=== PATIENT | female | born 1995 | race Caucasian/White ===

== ENCOUNTER 2016-03-12 10:05 | Emergency (ER) | payer MEDICAID ==
[~2016-03-12 10:05] MED LIST: ALBU17AE23 IH; AMOX500T2 PO; BIRTH CONTROL; CEFP250T2 PO; CEPH-38 PO; CLIN300C3 PO; CPR500T PO; DICY20TA57 PO; DOCO200C4 PO; FLUC200T45 PO; HYDR-2856 PO; Ibuprofen PO; LRT10T PO; METR500T PO; MNTL10T PO; NA P133E35 PR; NAPR250T34 PO; NFPRILOC40 PO; NITR-65 PO; NITR100C PO; OMEP-10 PO; OMEP40CA36 PO; ONDAN4ODT PO; PNT40TEC PO; PNV1TABL56 PO; POLY17PO23 PO; PRD20T PO; PREN-102 PO; RANI25TA PO; RNT150T PO; SCR1T1 PO; SERT50TA2 PO; SPRINTEC PO; SULF1TAB38 PO; TRM50T PO
--- OUTSIDE RECORDS SUMMARY | 2016-03-12 10:10 | XMS REPORT | Continuity of Care Document ---
Author Author [facility] Organization [facility] Address Unknown Phone Unavailable Care Team Providers Care Journeyman Carpenter Name Role Phone PhilMarta Fowler PCP [phone] Source Comments Some departments are not documenting in the electronic medical record. If you do not see the information that you expected, contact Release of Information in the Health Information Management department at [phone] for further assistance in locating additional records.[facility] Active Allergies and Adverse Reactions Allergen Noted Date Severity Reactions Comments Erythromycin 09/17/2012 SHORTNESS OF BREATH Iv Contrast Dye, Iodine 09/17/2012 HIVES Containing Morphine 09/17/2012 HIVES Current Medications Prescription Sig. Disp. Refills Start End Date Status Date ETONOGESTREL/ETHINYL Insert or Apply to Active ESTRADIOL (NUVARING VA) vaginal area. loratadine (CLARITIN) 10 Take 10 mg by mouth Active mg tablet daily. other medication Budesonide, oral viscous 60 mL 6 11/30/19 Active 1 mg/1 mL: Take 1 mL by 13 mouth twice daily. polyethylene glycol 3350 Take 17 g by mouth daily. 3 Bottle 12 Active (GLYCOLAX; MIRALAX) 17 13 gram/dose powder bisacodyl (DULCOLAX) 5 mg Take 2 Tabs by mouth 30 Tab 12 01/07/20 Active tablet every other day as needed [address](+) Take 1 Cap by mouth twice 60 Cap 12 01/07/20 Active (PRILOSEC) 20 mg capsule daily. 13 lubiprostone (AMITIZA) 24 Take 1 Cap by mouth twice 60 Cap 3 01/07/20 Active mcg cap daily with meals. 13 Active Problems Problem Noted Date Eosinophilic esophagitis 01/22/2013 Overview: Pathology here did not quantify the number of eosinophils/hpf, but did state EoE. It would be beneficial to have the number of eosinophils to see how much of a response was made with the viscous budesonide. Allergy skin testing could not be done today due to use of Claritin. - Plan for allergy skin testing to foods in 3 weeks. - Plan for food elimination depending on recent biopsy from EGD and skin testing. - We will wait for the biopsy results before making further decisions. - Continue budesonide per GI recommendations. Allergic rhinitis 01/22/2013 Overview: Based on history only, with the report of previous positive skin testing. - Hold Claritin 7 days prior to the next appointment. - If the patient wishes, we could perform aeroallergen skin testing at next visit. Asthma 01/22/2013 Overview: Based on history, last use of albuterol was 2 years ago. Mother suggests that it is exercise induced. - Continue to monitor symptoms with primary care. Abdominal pain 09/20/2012 Constipation 09/20/2012 Social History Tobacco Use Types Packs/Day Years Used Date Never Smoker Comments: 11.4.13 Alcohol Use Drinks/Week oz/Week Comments No Last Filed Vital Signs Vital Sign Reading Time Taken Blood Pressure 108/71 01/22/2013 12:34 PM SPLITTING MACHINE OPERATOR HELPER Pulse 89 01/22/2013 12:34 PM SPLITTING MACHINE OPERATOR HELPER Temperature 36.5 C (97.7 F) 01/22/2013 12:34 PM SPLITTING MACHINE OPERATOR HELPER Respiratory Rate 16 01/22/2013 12:34 PM SPLITTING MACHINE OPERATOR HELPER Height 1.487 m (4' 10.54") 01/22/2013 12:34 PM SPLITTING MACHINE OPERATOR HELPER Weight 54.613 kg (120 lb 6.4 oz) 01/22/2013 12:34 PM SPLITTING MACHINE OPERATOR HELPER Body Mass Index 24.7 01/22/2013 12:34 PM SPLITTING MACHINE OPERATOR HELPER Oxygen Saturation 98% 01/22/2013 12:34 PM SPLITTING MACHINE OPERATOR HELPER Plan of Care Health Maintenance Due Date Last Done Comments Physical (Comprehensive) 11/03/2002 Exam Hpv Vaccines (#1) 11/03/2006 Pertussis Vaccine 11/03/2006 Tetanus Vaccine 11/03/2012 Influenza Vaccine 2015 Results from Last 3 Months Not on file
== END 2016-03-12 10:36 | disposition left against medical advice (07) ==
LOC: EDUNIT# 10:05 → ER 10:07
DX: R30.0 Dysuria (principal); Z53.21 Procedure and treatment not carried out due to patient leaving prior to being seen by health care provider

== ENCOUNTER 2016-03-29 07:36 | Emergency (ER) | payer MEDICAID ==
[~2016-03-29] VITALS: Ht 152.4 cm; Wt 59.0 kg
--- OUTSIDE RECORDS SUMMARY | 2016-03-29 07:42 | XMS REPORT | Continuity of Care Document ---
Author Author [facility] Organization [facility] Address Unknown Phone Unavailable Care Team Providers Care Senior Climate Advisor Name Role Phone PhilMarta Fowler PCP [phone] Source Comments Some departments are not documenting in the electronic medical record. If you do not see the information that you expected, contact Release of Information in the Health Information Management department at [phone] for further assistance in locating additional records.[facility] Active Allergies and Adverse Reactions Allergen [...] Taken Blood Pressure 108/71 01/22/2013 12:34 PM EIGHT SECTION BLOWER Pulse 89 01/22/2013 12:34 PM EIGHT SECTION BLOWER Temperature 36.5 C (97.7 F) 01/22/2013 12:34 PM EIGHT SECTION BLOWER Respiratory Rate 16 01/22/2013 12:34 PM EIGHT SECTION BLOWER Height 1.487 m (4' 10.54") 01/22/2013 12:34 PM EIGHT SECTION BLOWER Weight 54.613 kg (120 lb 6.4 oz) 01/22/2013 12:34 PM EIGHT SECTION BLOWER Body Mass Index 24.7 01/22/2013 12:34 PM EIGHT SECTION BLOWER Oxygen Saturation 98% 01/22/2013 12:34 PM EIGHT SECTION BLOWER Plan of Care Health Maintenance Due Date Last Done Comments Physical (Comprehensive) 11/03/2002 Exam Hpv Vaccines (#1) 11/03/2006 Pertussis Vaccine 11/03/2006 Tetanus Vaccine 11/03/2012 Influenza Vaccine 2015 Results from Last 3 Months Not on file
[2016-03-29 08:00] LABS: BILIRUBIN,URINE NEGATIVE (NEGATIVE); KETONES,URINE NEGATIVE (NEGATIVE); LEUKOCYTE ESTERASE ,URINE 3+ (NEGATIVE); NITRITE,URINE NEGATIVE (NEGATIVE); PH,URINE 5 (5-9); PROTEIN,URINE 3+ (NEGATIVE); UROBILINOGEN,URINE NORMAL (NORMAL)
[2016-03-29 08:11] LABS: WBC,URINE >100 /HPF
[2016-03-29] MEDS ORDERED: KETOROLAC 60 MG/2 ML VIAL IM STA (08:21)
[2016-03-29] MEDS ORDERED: TRAM-42 PO (08:24)
[2016-03-29] MEDS ORDERED: LEVO500T2 PO (08:24)
--- NOTE | 2016-03-29 08:24 | ED Back Pain ---
General Chief Complaint: Back Problems Stated Complaint: LOW BACK PAIN Nursing Triage Note: PT CO OF LOW BACK PAIN FOR 2-3DAYS AND SOME NAUSEA RATES PAIN 9/10 Nursing Sepsis Screen: No Definite Risk Source of Information: Patient History of Present Illness Time Seen by Provider: 07:53 Initial Comments C/O LOWER BACK PAIN X 2-3 DAYS PAIN IS CONSTANT AND IS WORSE WITH MOVEMENTS, NOTHING IMPROVES PAIN NO RADIATION OF PAIN NO INJURY NO PARESTHESIAS OR MOTOR DEFICITS C/O MILD LOWER ABDOMINAL/SUPRAPUBIC PAIN NO URINARY SYMPTOMS NO FEVER MILD NAUSEA, NO VOMITING STATES SHE HAS "CHRONIC LOW BACK PAIN", BUT NOT THIS BAD PT CAME TO ER 03/12/16 FOR BURNING ON URINATION, BUT LWBS 10 MINUTES AFTER ARRIVAL . LMP END OF JANUARY, NO CONTROL. STATES PERIODS ALWAYS IRREGULAR Other Comments PCP: DR. RAPHAEL Allergies and Home Medications Allergies Coded Allergies: Erythromycin Base (Unverified Allergy, Severe, ANAPHYLAXIS, 06/24/13) Iodinated Contrast Media - IV Dye (Unverified Allergy, Severe, ANAPHYLAXIS , 06/24/13) morphine (Verified Allergy, Intermediate, NAUSEA, 06/24/13) Home Medications Levofloxacin 500 Mg Tablet #10 500 MG PO DAILY Prescribed by: STAR PARKS on 03/29/16823 Tramadol HCl 50 Mg Tablet #20 50 MG PO Q4H Prescribed by: STAR PARKS on 03/29/16823 Constitutional: no symptoms reported Respiratory: no symptoms reported Cardiovascular: no symptoms reported Gastrointestinal: see HPI abdominal painNo diarrhea, No loss of appetite, nauseaNo vomiting Genitourinary: no symptoms reported : No LMP: Jan 28, 2016 Control/STD Prophylaxis: None Musculoskeletal: see HPI back pain Skin: no symptoms reported Psychiatric/Neurological: No Symptoms Reported Past Tfdavlu-Asedna-Lzazvy Hx Patient Social History Alcohol Use: Denies Use Recreational Drug Use: No Smoking Status: Never a Smoker Recent Foreign Travel: No Contact w/Someone Who Travel: No Recent Infectious Disease Expo: No Recent Hopitalizations: No Physical Abuse Screen: No Sexual Abuse: No Immunizations Up To Date Tetanus Booster (TDap): Unknown PED Vaccines UTD: No Surgeries HX Surgeries: Yes (2002 eye surgery FOR TRAUMA--DOES NOT REMEBER WHICH EYE ) Surgeries: Eye Surgery Respiratory Hx Respiratory Disorders: Yes Respiratory Disorders: Asthma Cardiovascular Hx Cardiac Disorders: No Neurological Hx Neurological Disorders: No Reproductive System : No (PT STATES IRREGULAR 01/28/16?) Hx Reproductive Disorders: No Sexually Transmitted Disease: No Female Reproductive Disorders: Menstrual Problems, Ovarian Cyst Genitourinary Hx Genitourinary Disorders: Yes (medullary sponge kidney) Genitourinary Disorders: UTI-Chronic Gastrointestinal Hx Gastrointestinal Disorders: Yes Gastrointestinal Disorders: Chronic Constipation Musculoskeletal Hx Musculoskeletal Disorders: No Endocrine Hx Endocrine Disorders: No HEENT HX ENT Disorders: Yes (EYE INJURY/SURGERY 2002) Loss of Vision: Right Cancer Hx Cancer: No Psychosocial Hx Psychiatric Problems: No Integumentary HX Skin/Integumentary Disorder: No Blood Transfusions Hx Blood Disorders: No Adverse Reaction to a Blood Tr: No Family Medical History Family Medial History: Asthma 19 MOTHER G8 SISTER Diabetes mellitus 19 MOTHER Hypertension 19 FATHER 19 MOTHER Thyroid disease 19 MOTHER No Family History of: AIDS Abdominal aortic aneurysm Elliott's disease Alcoholism Alzheimer's disease Aphasia Arthritis Cancer of mouth Cardiovascular disease Cataracts Colon cancer Completed stroke Congenital disease Congenital heart disease Coronary thrombosis Cystic fibrosis Deafness or hearing loss Dementia Drug abuse Dysphasia Fibrocystic disease of breast Gastroenteritis Glaucoma Headache disorder Hypercholesterolemia Infertility Kidney disease Myocardial infarction Neoplasm Not obtainable due to adoption Osteoporosis Parkinson's disease Prostate cancer Psychosocial problem Respiratory disorder Seizure disorder Severe allergy Tuberculosis Visual disorder Physical Exam Vital Signs Vital Sign - Last 12Hours 03/29/16 07:45 Temp 97.6 Pulse 95 Resp 18 B/P 127/91 Pulse Ox 99 O2 Delivery Room Air Capillary Refill : Less Than 3 Seconds General Appearance: No Apparent Distress WD/WN Other (FLAT AFFECT) Cardiovascular: Regular Rate, Rhythm No Edema No JVD No Murmur Normal Peripheral Pulses Respiratory: Chest Non Tender Normal Breath Sounds No Accessory Muscle Use No Respiratory Distress Gastrointestinal: Normal Bowel Sounds No Organomegaly No Pulsatile Mass Soft Tenderness (MILD SUPRAPUBIC TENDERNESS) Back: No Decreased Range of Motion, Other (MILD DIFFUSE LOWER BACK TENDERNESS , FULL ROM.. NEGATIVE STRAIGHT LEG RAISING) Neurologic/Psychiatric: Alert Oriented x3 No Motor/Sensory Deficits cherry sorter II- XII Norm as Tested Skin: Normal Color Warm/Dry Progress/Results/Core Measures Results/Orders Lab Results Laboratory Tests Test 03/29/16 07:45 Range/Units Urine Bacteria MODERATE H /HPF Urine Bilirubin NEGATIVE NEGATIVE Urine Casts NONE /LPF Urine Clarity CLEAR Urine Color YELLOW Urine Crystals NONE /LPF Urine Culture Indicated YES Urine Glucose (UA) NEGATIVE NEGATIVE Urine Ketones NEGATIVE NEGATIVE Urine Leukocyte Esterase 3+ H NEGATIVE Urine Mucus NEGATIVE /LPF Urine Nitrite NEGATIVE NEGATIVE Urine Protein 3+ H NEGATIVE Urine RBC 10-25 H /HPF Urine RBC (Auto) 5+ H NEGATIVE Urine Specific [place] 1.010 L 1.016-1.022 Urine Squamous Epithelial Cells 5-10 /HPF Urine Urobilinogen NORMAL NORMAL MG/DL Urine WBC >100 H /HPF Urine pH 5 5-9 My Orders Orders-STAR PARKS DO Urine Bedside (03/29/16 07:53) Ua Culture If Indicated (03/29/16 07:53) Urine Culture (03/29/16 07:45) Ceftriaxone Injection (Rocephin Injectio (03/29/16 08:30) Ketorolac Injection (Toradol Injection) (03/29/16 08:21) Lidocaine 1% Injection (Xylocaine 1% Inj (03/29/16 08:30) Vital Signs/I&O Vital Sign - Last 12Hours 03/29/16 07:45 Temp 97.6 Pulse 95 Resp 18 B/P 127/91 Pulse Ox 99 O2 Delivery Room Air Blood Pressure Mean: 103 Point of Care Testing Urine -Bedside: Negative Departure Impression Impression: Primary Impression: UTI (urinary tract infection) Disposition: 01 HOME, SELF-CARE Condition: Stable Departure-Patient Inst. Referrals: RAQUEL RAPHAEL MD (PCP/Family) Primary Care Physician Patient Instructions: Urinary Tract Infection, Adult (DC) Add. Discharge Instructions: LOTS OF CLEAR LIQUIDS--NO COFFEE, POP OR TEA TYLENOL 1 GRAM /MOTRIN 800 MG 4 TIMES A DAY FOR PAIN FOLLOW UP WITH DR. RAPHAEL IN 2-3 DAYS IF NO BETTER All discharge instructions reviewed with patient and/or family. Voiced understanding. Scripts Tramadol HCl (Ultram)50 Mg [id number] Mg PO Q4H #20 TAB Prov:STAR PARKS DO 03/29/16 Levofloxacin (Levaquin)500 Mg [id number] Mg PO DAILY INFECTION #10 TAB Prov:STAR PARKS DO 03/29/16 STAR PARKS DO Mar 29, 2016 08:24
[2016-03-29] MEDS ORDERED: LIDOCAINE 1% INJ 20 ML (XYLOCAINE) VIAL INJ ONE (08:30)
[2016-03-29] MEDS ORDERED: cefTRIAXone 1 GM (ROCEPHIN) VIAL IM ONE (08:30)
[2016-03-29 08:57] VITALS: BP 127/91
== END 2016-03-29 08:56 | disposition home or self-care (01) ==
LOC: EDUNIT# 07:36 → ER 07:38
DX: N39.0 Urinary tract infection, site not specified (principal)
CPT/HCPCS: 81000; 84703; 87088; 87186; 96372; 99283

== ENCOUNTER → 2016-06-30 | Outpatient (CLI) | payer MEDICAID ==
[~2016-06-30] MED LIST changes: +LEVO500T2 PO; +TRAM-42 PO
== END ==
LOC: LAB 08:42
PROVIDERS: ATTEND Family Medicine
DX: N91.2 Amenorrhea, unspecified (principal)
CPT/HCPCS: 36415; 84702

== ENCOUNTER → 2016-09-12 | Outpatient (CLI) | payer MEDICAID ==
--- NOTE | 2016-09-12 10:20 | Diagnostic Imaging Report ---
First trimester OB ultrasound. INDICATION: Dating. FINDINGS: There is a normal-appearing single intrauterine . An embryo is seen with cardiac activity at 149 beats per minute. The crown-rump length is at 8 weeks and 2 days. ALYSSA is 04/22/17. There is a 1.5 cm hypoechoic lesion in the right ovary probably an involuting corpus luteum cyst.. The left ovary demonstrate normal follicles. IMPRESSION: Live single intrauterine . Dictated by: Dictated on workstation # [id number]
== END ==
LOC: RAD 09:21
PROVIDERS: ATTEND Family Medicine
DX: Z36 Encounter for antenatal screening of mother (principal); Z3A.08 8 weeks gestation of pregnancy
CPT/HCPCS: 76817

== ENCOUNTER 2016-09-14 17:07 | Emergency (ER) | payer MEDICAID ==
[~2016-09-14] VITALS: Ht 152.4 cm; Wt 61.7 kg
--- OUTSIDE RECORDS SUMMARY | 2016-09-14 17:13 | XMS REPORT | Continuity of Care Document ---
Author Author [facility] Organization [facility] Address Unknown Phone Unavailable Care Team Providers Care Plumbing Engineering Draftsperson Name Role Phone PhilMarta Fowler PCP [phone] Source Comments Some departments are not documenting in the electronic medical record. If you do not see the information that you expected, contact Release of Information in the Health Information Management department at [phone] for further assistance in locating additional records.[facility] Active Allergies and Adverse Reactions Allergen Noted [...] Taken Blood Pressure 108/71 01/22/2013 12:34 PM WOOD CLUB NECK WHIPPER Pulse 89 01/22/2013 12:34 PM WOOD CLUB NECK WHIPPER Temperature 36.5 C (97.7 F) 01/22/2013 12:34 PM WOOD CLUB NECK WHIPPER Respiratory Rate 16 01/22/2013 12:34 PM WOOD CLUB NECK WHIPPER Height 1.487 m (4' 10.54") 01/22/2013 12:34 PM WOOD CLUB NECK WHIPPER Weight 54.613 kg (120 lb 6.4 oz) 01/22/2013 12:34 PM WOOD CLUB NECK WHIPPER Body Mass Index 24.7 01/22/2013 12:34 PM WOOD CLUB NECK WHIPPER Oxygen Saturation 98% 01/22/2013 12:34 PM WOOD CLUB NECK WHIPPER Plan of Care Health Maintenance Due Date Last Done Comments Physical (Comprehensive) 11/03/2002 Exam Hpv Vaccines (#1) 11/03/2006 Pertussis Vaccine 11/03/2006 Tetanus Vaccine 11/03/2012 Influenza Vaccine 11/03/2016 Results from Last 3 Months Not on file
--- OUTSIDE RECORDS SUMMARY | 2016-09-14 17:14 | XMS REPORT ---
Author [facility] [employer] Address Unknown Phone Unavailable Care Team Providers Care Fiberglass Autobody Repairer Name Role Phone MARIA G VILLANUEVA CP Unavailable Allergies No Known Allergies Problems Problem Type Condition Code Onset Dates Condition Status Problem Excessive or frequent menstruation 626.2 Active Problem Problems related to high-risk sexual behavior V69.2 Active Problem MENINGOCOCCAL DX V03.89 Active Problem Other psoriasis 696.1 Active Problem Dysuria 788.1 Active Problem Acute tonsillitis 463 Active Problem DTAP TEST V06.1 Active Problem GARDASIL (HPV) DX V04.89 Active Problem Blood in stool 578.1 Active Problem Lumbago 724.2 Active Problem Urinary tract infection, site not specified 599.0 Active Problem Dermatophytosis of the body 110.5 Active Problem Supervision of normal first V22.0 Active Assessment Unprotected sexual intercourse Z72.51 Active Problem examination or test, positive result V72.42 Active Medications No Known Medications Procedures Procedure Coding System Code Date VENIPUNCT, ROUTINE* CPT-4 21634 Dec 06, 2015 CHORIONIC GONADOTROPIN ASSAY CPT-4 46305 Dec 06, 2015 Results Name Result Date Reference Range Unit Abnormality Flag ROUTINE VENIPUNCTURE TEST, SERUM (QUAL) ----hCG,Beta Subunit,Qual,Serum Negative [id number] Negative <6 mIU/mL Summary Purpose [employer] Submission
--- OUTSIDE RECORDS SUMMARY | 2016-09-14 17:15 | XMS REPORT | Continuity of Care Document ---
Author Author [facility] Address Unknown Phone Unavailable Allergies Active Description Code Type Severity Reaction Onset Reported/Identified Relationship to Patient Clinical Status Yes erythromycin Drug Allergy N/A N/A 06/10/2008 Yes erythromycin Drug Allergy 06/10/2008 Yes IV Dye, Iodine Containing Contrast Media Drug Allergy N/A N/A 09/07/2011 Yes morphine Drug Allergy N/A N/A 09/07/2011 Yes IV Dye, Iodine Containing Contrast Media Drug Allergy 09/07/2011 Yes morphine Drug Allergy 09/07/2011 Yes erythromycin base [id number] Drug Allergy Severe ANAPHYLAXIS 06/24/2013 Yes Iodinated Contrast Media - IV Dye [id number] Drug Allergy Severe ANAPHYLAXIS 06/24/2013 Yes Iodinated Contrast Media - Oral and [id number] Drug Allergy Severe ANAPHYLAXIS 06/24/2013 Yes Iodinated Contrast- Oral and IV Dye [id number] Drug Allergy Severe ANAPHYLAXIS 06/24/2013 Yes morphine [id number] Drug Allergy Moderate NAUSEA 06/24/2013 Medications Problems Date Dx Coded Attending Type Code Diagnosis Diagnosed By 02/06/2008 MARIA G VILLANUEVA DO 558.9 GASTROENTERITIS NONINFECTIOUS 02/06/2008 558.9 GASTROENTERITIS NONINFECTIOUS 02/06/2008 TRISTIN RODRIGUEZ APRN 558.9 GASTROENTERITIS NONINFECTIOUS 02/06/2008 558.9 GASTROENTERITIS NONINFECTIOUS 02/06/2008 558.9 GASTROENTERITIS NONINFECTIOUS 02/06/2008 558.9 GASTROENTERITIS NONINFECTIOUS 02/06/2008 ELIZABETH LARSON APRN 558.9 GASTROENTERITIS NONINFECTIOUS 02/18/2008 MARIA G VILLANUEVA DO 564.00 CONSTIPATION CHRONIC 02/18/2008 564.00 CONSTIPATION CHRONIC 02/18/2008 TRISTIN RODRIGUEZ APRN 564.00 CONSTIPATION CHRONIC 02/18/2008 564.00 CONSTIPATION CHRONIC 02/18/2008 564.00 CONSTIPATION CHRONIC 02/18/2008 564.00 CONSTIPATION CHRONIC 02/18/2008 NEO SIDEHAND, ELIZABETH A 564.00 CONSTIPATION CHRONIC 06/10/2008 MARIA G VILLANUEVA DO 784.0 headache 06/10/2008 MARIA G VILLANUEVA DO 787.01 nausea with vomiting 06/10/2008 784.0 headache 06/10/2008 787.01 nausea with vomiting 06/10/2008 TRISTIN RODRIGUEZ APRN 784.0 headache 06/10/2008 TRISTIN RODRIGUEZ APRN 787.01 nausea with vomiting 06/10/2008 784.0 headache 06/10/2008 787.01 nausea with vomiting 06/10/2008 784.0 headache 06/10/2008 787.01 nausea with vomiting 06/10/2008 784.0 headache 06/10/2008 787.01 nausea with vomiting 06/10/2008 ELIZABETH LARSON APRN A 784.0 headache 06/10/2008 ELIZABETH LARSON APRN A 787.01 nausea with vomiting 06/15/2008 MARIA G VILLANUEVA DO 034.0 PHARYNGITIS STREPTOCOCCUS, GROUP A: BETA HEMOLYTIC 06/15/2008 MARIA G VILLANUEVA DO 789.00 abdominal pain 06/15/2008 034.0 PHARYNGITIS STREPTOCOCCUS, GROUP A: BETA HEMOLYTIC 06/15/2008 789.00 abdominal pain 06/15/2008 TRISTIN RODRIGUEZ APRN 034.0 PHARYNGITIS STREPTOCOCCUS, GROUP A: BETA HEMOLYTIC 06/15/2008 TRISTIN RODRIGUEZ APRN 789.00 abdominal pain 06/15/2008 034.0 PHARYNGITIS STREPTOCOCCUS, GROUP A: BETA HEMOLYTIC 06/15/2008 789.00 abdominal pain 06/15/2008 034.0 PHARYNGITIS STREPTOCOCCUS, GROUP A: BETA HEMOLYTIC 06/15/2008 789.00 abdominal pain 06/15/2008 034.0 PHARYNGITIS STREPTOCOCCUS, GROUP A: BETA HEMOLYTIC 06/15/2008 789.00 abdominal pain 06/15/2008 ELIZABETH LARSON APRN A 034.0 PHARYNGITIS STREPTOCOCCUS, GROUP A: BETA HEMOLYTIC 06/15/2008 ELIZABETH LARSON APRN A 789.00 abdominal pain 10/08/2008 MARIA G VILLANUEVA DO 530.81 ESOPHAGEAL REFLUX 10/08/2008 530.81 ESOPHAGEAL REFLUX 10/08/2008 TRISTIN RODRIGUEZ APRN 530.81 ESOPHAGEAL REFLUX 10/08/2008 530.81 ESOPHAGEAL REFLUX 10/08/2008 530.81 ESOPHAGEAL REFLUX 10/08/2008 530.81 ESOPHAGEAL REFLUX 10/08/2008 ELIZABETH LARSON APRN 530.81 ESOPHAGEAL REFLUX 08/27/2009 MARIA G VILLANUEVA DO 719.46 PAIN IN JOINT, LOWER LEG 08/27/2009 719.46 PAIN IN JOINT, LOWER LEG 08/27/2009 TRISTIN RODRIGUEZ APRN R 719.46 PAIN IN JOINT, LOWER LEG 08/27/2009 719.46 PAIN IN JOINT, LOWER LEG 08/27/2009 719.46 PAIN IN JOINT, LOWER LEG 08/27/2009 719.46 PAIN IN JOINT, LOWER LEG 08/27/2009 ELIZABETH LARSON APRN 719.46 PAIN IN JOINT, LOWER LEG 09/23/2009 MARIA G VILLANUEVA DO 625.9 UNSPECIFIED SYMPTOM ASSOCIATED WITH FEMALE GENITAL ORGANS 09/23/2009 MARIA G VILLANUEVA DO 717.40 DERANGEMENT OF LATERAL MENISCUS, UNSPECIFIED 09/23/2009 625.9 UNSPECIFIED SYMPTOM ASSOCIATED WITH FEMALE GENITAL ORGANS 09/23/2009 717.40 DERANGEMENT OF LATERAL MENISCUS, UNSPECIFIED 09/23/2009 TRISTIN RODRIGUEZ APRN R 625.9 UNSPECIFIED SYMPTOM ASSOCIATED WITH FEMALE GENITAL ORGANS 09/23/2009 TRISTIN RODRIGUEZ APRN 717.40 DERANGEMENT OF LATERAL MENISCUS, UNSPECIFIED 09/23/2009 625.9 UNSPECIFIED SYMPTOM ASSOCIATED WITH FEMALE GENITAL ORGANS 09/23/2009 717.40 DERANGEMENT OF LATERAL MENISCUS, UNSPECIFIED 09/23/2009 625.9 UNSPECIFIED SYMPTOM ASSOCIATED WITH FEMALE GENITAL ORGANS 09/23/2009 717.40 DERANGEMENT OF LATERAL MENISCUS, UNSPECIFIED 09/23/2009 625.9 UNSPECIFIED SYMPTOM ASSOCIATED WITH FEMALE GENITAL ORGANS 09/23/2009 717.40 DERANGEMENT OF LATERAL MENISCUS, UNSPECIFIED 09/23/2009 ELIZABETH LARSON APRN 625.9 UNSPECIFIED SYMPTOM ASSOCIATED WITH FEMALE GENITAL ORGANS 09/23/2009 ELIZABETH LARSON APRN 717.40 DERANGEMENT OF LATERAL MENISCUS, UNSPECIFIED 09/27/2009 Ot 493.90 09/27/2009 Ot 620.2 09/27/2009 Ot 625.3 09/27/2009 Ot 626.2 2009 MARIA G VILLANUEVA DO 075 MONONUCLEOSIS 2009 MARIA G VILLANUEVA DO 462 PHARYNGITIS ACUTE 2009 075 MONONUCLEOSIS 2009 462 PHARYNGITIS ACUTE 2009 TRISTIN RODRIGUEZ APRN 075 MONONUCLEOSIS 2009 TRISTIN RODRIGUEZ APRN 462 PHARYNGITIS ACUTE 2009 075 MONONUCLEOSIS 2009 462 PHARYNGITIS ACUTE 2009 075 MONONUCLEOSIS 2009 462 PHARYNGITIS ACUTE 2009 075 MONONUCLEOSIS 2009 462 PHARYNGITIS ACUTE 2009 ELIZABETH LARSON APRN 075 MONONUCLEOSIS 2009 ELIZABETH LARSON APRN 462 PHARYNGITIS ACUTE 03/10/2010 MARIA G VILLANUEVA DO 381.81 DYSFUNCTION OF EUSTACHIAN TUBE 03/10/2010 381.81 DYSFUNCTION OF EUSTACHIAN TUBE 03/10/2010 TRISTIN RODRIGUEZ APRN 381.81 DYSFUNCTION OF EUSTACHIAN TUBE 03/10/2010 381.81 DYSFUNCTION OF EUSTACHIAN TUBE 03/10/2010 381.81 DYSFUNCTION OF EUSTACHIAN TUBE 03/10/2010 381.81 DYSFUNCTION OF EUSTACHIAN TUBE 03/10/2010 ELIZABETH LARSON APRN 381.81 DYSFUNCTION OF EUSTACHIAN TUBE 03/15/2010 MARIA G VILLANUEVA DO 704.8 OTHER SPECIFIED DISEASES OF HAIR AND HAIR FOLLICLES 03/15/2010 704.8 OTHER SPECIFIED DISEASES OF HAIR AND HAIR FOLLICLES 03/15/2010 TRISTIN RODRIGUEZ APRN 704.8 OTHER SPECIFIED DISEASES OF HAIR AND HAIR FOLLICLES 03/15/2010 704.8 OTHER SPECIFIED DISEASES OF HAIR AND HAIR FOLLICLES 03/15/2010 704.8 OTHER SPECIFIED DISEASES OF HAIR AND HAIR FOLLICLES 03/15/2010 704.8 OTHER SPECIFIED DISEASES OF HAIR AND HAIR FOLLICLES 03/15/2010 ELIZABETH LARSON APRN 704.8 OTHER SPECIFIED DISEASES OF HAIR AND HAIR FOLLICLES 03/23/2010 Ot 787.01 03/28/2010 MARIA G VILLANUEVA DO V20.2 WELL CHILD 03/28/2010 V20.2 WELL CHILD 03/28/2010 TRISTIN RODRIGUEZ APRN V20.2 WELL CHILD 03/28/2010 V20.2 WELL CHILD 03/28/2010 V20.2 WELL CHILD 03/28/2010 V20.2 WELL CHILD 03/28/2010 ELIZABETH LARSON APRN V20.2 WELL CHILD 04/07/2010 Ot 709.9 04/18/2010 Ot 530.81 07/28/2010 Ot 599.0 07/28/2010 Ot 682.6 07/28/2010 Ot 782.1 07/28/2010 Ot 789.09 07/28/2010 Ot E849.7 07/28/2010 Ot E947.8 08/15/2010 MARIA G VILLANUEVA DO 682.9 CELLULITIS AND ABSCESS OF UNSPECIFIED SITES 08/15/2010 682.9 CELLULITIS AND ABSCESS OF UNSPECIFIED SITES 08/15/2010 TRISTIN RODRIGUEZ APRN 682.9 CELLULITIS AND ABSCESS OF UNSPECIFIED SITES 08/15/2010 682.9 CELLULITIS AND ABSCESS OF UNSPECIFIED SITES 08/15/2010 682.9 CELLULITIS AND ABSCESS OF UNSPECIFIED SITES 08/15/2010 682.9 CELLULITIS AND ABSCESS OF UNSPECIFIED SITES 08/15/2010 ELIZABETH LARSON APRN 682.9 CELLULITIS AND ABSCESS OF UNSPECIFIED SITES 09/10/2010 Ot 789.00 10/18/2010 Ot 530.81 ESOPHAGEAL REFLUX 10/18/2010 Ot 535.40 OTH SPECIFIED GASTRITIS,W/O MENTION OF H 10/18/2010 Ot 569.3 RECTAL ANAL HEMORRHAGE 10/18/2010 Ot 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 10/31/2010 MARIA G VILLANUEVA DO 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 10/31/2010 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 10/31/2010 TRISTIN RODRIGUEZ APRN 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 10/31/2010 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 10/31/2010 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 10/31/2010 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 10/31/2010 ELIZABETH LARSON APRN 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 11/08/2010 MARIA G VILLANUEVA DO 530.13 EOSINOPHILIC ESOPHAGITIS 11/08/2010 MARIA G VILLANUEVA DO 553.3 DIAPHRAGMATIC HERNIA WITHOUT OBSTRUCTION OR GANGRENE 11/08/2010 530.13 EOSINOPHILIC ESOPHAGITIS 11/08/2010 553.3 DIAPHRAGMATIC HERNIA WITHOUT OBSTRUCTION OR GANGRENE 11/08/2010 TRISTIN RODRIGUEZ APRN R 530.13 EOSINOPHILIC ESOPHAGITIS 11/08/2010 TRISTIN RODRIGUEZ APRN 553.3 DIAPHRAGMATIC HERNIA WITHOUT OBSTRUCTION OR GANGRENE 11/08/2010 530.13 EOSINOPHILIC ESOPHAGITIS 11/08/2010 553.3 DIAPHRAGMATIC HERNIA WITHOUT OBSTRUCTION OR GANGRENE 11/08/2010 530.13 EOSINOPHILIC ESOPHAGITIS 11/08/2010 553.3 DIAPHRAGMATIC HERNIA WITHOUT OBSTRUCTION OR GANGRENE 11/08/2010 530.13 EOSINOPHILIC ESOPHAGITIS 11/08/2010 553.3 DIAPHRAGMATIC HERNIA WITHOUT OBSTRUCTION OR GANGRENE 11/08/2010 ELIZABETH LARSON APRN 530.13 EOSINOPHILIC ESOPHAGITIS 11/08/2010 ELIZABETH LARSON APRN 553.3 DIAPHRAGMATIC HERNIA WITHOUT OBSTRUCTION OR GANGRENE 11/15/2010 MARIA G VILLANUEVA DO 465.9 UPPER RESPIRATORY INFECTION 11/15/2010 465.9 UPPER RESPIRATORY INFECTION 11/15/2010 TRISTIN RODRIGUEZ APRN 465.9 UPPER RESPIRATORY INFECTION 11/15/2010 465.9 UPPER RESPIRATORY INFECTION 11/15/2010 465.9 UPPER RESPIRATORY INFECTION 11/15/2010 465.9 UPPER RESPIRATORY INFECTION 11/15/2010 ELIZABETH LARSON APRN 465.9 UPPER RESPIRATORY INFECTION 12/05/2010 MARIA G VILLANUEVA DO 041.86 HELICOBACTER PYLORI [H. PYLORI] INFECTION 12/05/2010 041.86 HELICOBACTER PYLORI [H. PYLORI] INFECTION 12/05/2010 TRISTIN RODRIGUEZ APRN 041.86 HELICOBACTER PYLORI [H. PYLORI] INFECTION 12/05/2010 041.86 HELICOBACTER PYLORI [H. PYLORI] INFECTION 12/05/2010 041.86 HELICOBACTER PYLORI [H. PYLORI] INFECTION 12/05/2010 041.86 HELICOBACTER PYLORI [H. PYLORI] INFECTION 12/05/2010 ELIZABETH LARSON APRN 041.86 HELICOBACTER PYLORI [H. PYLORI] INFECTION 12/13/2010 MARIA G VILLANUEVA DO 464.00 LARYNGITIS ACUTE W/O OBSTRUCTION 12/13/2010 464.00 LARYNGITIS ACUTE W/O OBSTRUCTION 12/13/2010 TRISTIN RODRIGUEZ APRN 464.00 LARYNGITIS ACUTE W/O OBSTRUCTION 12/13/2010 464.00 LARYNGITIS ACUTE W/O OBSTRUCTION 12/13/2010 464.00 LARYNGITIS ACUTE W/O OBSTRUCTION 12/13/2010 464.00 LARYNGITIS ACUTE W/O OBSTRUCTION 12/13/2010 ELIZABETH LARSON APRN 464.00 LARYNGITIS ACUTE W/O OBSTRUCTION 01/27/2011 Ot 300.00 ANXIETY STATE NOS 01/27/2011 Ot 599.0 URIN TRACT INFECTION NOS 01/27/2011 Ot 724.2 LUMBAGO 01/27/2011 Ot 789.09 ABDOMINAL PAIN, OTHER SPECIFIED SITE 02/15/2011 MARIA G VILLANUEVA DO 477.0 ALLERGIC RHINITIS DUE TO POLLEN 02/15/2011 477.0 ALLERGIC RHINITIS DUE TO POLLEN 02/15/2011 TRISTIN RODRIGUEZ APRN 477.0 ALLERGIC RHINITIS DUE TO POLLEN 02/15/2011 477.0 ALLERGIC RHINITIS DUE TO POLLEN 02/15/2011 477.0 ALLERGIC RHINITIS DUE TO POLLEN 02/15/2011 477.0 ALLERGIC RHINITIS DUE TO POLLEN 02/15/2011 ELIZABETH LARSON APRN 477.0 ALLERGIC RHINITIS DUE TO POLLEN 03/10/2011 Ot 338.18 OTHER ACUTE POSTOPERATIVE PAIN 03/10/2011 Ot 786.59 CHEST PAIN NEC 03/17/2011 Ot 599.0 URIN TRACT INFECTION NOS 03/17/2011 Ot 623.8 NONINFLAM DIS VAGINA NEC 03/21/2011 MARIA G VILLANUEVA DO 578.1 BLOOD IN STOOL 03/21/2011 578.1 BLOOD IN STOOL 03/21/2011 TRISTIN RODRIGUEZ APRN 578.1 BLOOD IN STOOL 03/21/2011 578.1 BLOOD IN STOOL 03/21/2011 578.1 BLOOD IN STOOL 03/21/2011 578.1 BLOOD IN STOOL 03/21/2011 ELIZABETH LARSON APRN 578.1 BLOOD IN STOOL 09/07/2011 MARIA G VILLANUEVA DO 463 TONSILLITIS ACUTE 09/07/2011 463 TONSILLITIS ACUTE 09/07/2011 TRISTIN RODRIGUEZ APRN 463 TONSILLITIS ACUTE 09/07/2011 463 TONSILLITIS ACUTE 09/07/2011 463 TONSILLITIS ACUTE 09/07/2011 463 TONSILLITIS ACUTE 09/07/2011 ELIZABETH LARSON APRN 463 TONSILLITIS ACUTE 10/19/2011 MARIA G VILLANUEVA DO 696.1 OTHER PSORIASIS AND SIMILAR DISORDERS 10/19/2011 696.1 OTHER PSORIASIS AND SIMILAR DISORDERS 10/19/2011 TRISTIN RODRIGUEZ APRN 696.1 OTHER PSORIASIS AND SIMILAR DISORDERS 10/19/2011 696.1 OTHER PSORIASIS AND SIMILAR DISORDERS 10/19/2011 696.1 OTHER PSORIASIS AND SIMILAR DISORDERS 10/19/2011 696.1 OTHER PSORIASIS AND SIMILAR DISORDERS 10/19/2011 ELIZABETH LARSON APRN 696.1 OTHER PSORIASIS AND SIMILAR DISORDERS 10/30/2011 MARIA G VILLANUEVA DO 110.5 TINEA CORPORIS 10/30/2011 110.5 TINEA CORPORIS 10/30/2011 TRISTIN RODRIGUEZ APRN 110.5 TINEA CORPORIS 10/30/2011 110.5 TINEA CORPORIS 10/30/2011 110.5 TINEA CORPORIS 10/30/2011 110.5 TINEA CORPORIS 10/30/2011 ELIZABETH LARSON APRN 110.5 TINEA CORPORIS 11/13/2011 Ot 789.06 ABDOMINAL PAIN, EPIGASTRIC 11/21/2011 MARIA G VILLANUEVA DO 724.2 LUMBAGO/ LOW BACK PAIN 11/21/2011 724.2 LUMBAGO/ LOW BACK PAIN 11/21/2011 TRISTIN RODRIGUEZ APRN 724.2 LUMBAGO/ LOW BACK PAIN 11/21/2011 724.2 LUMBAGO/ LOW BACK PAIN 11/21/2011 724.2 LUMBAGO/ LOW BACK PAIN 11/21/2011 724.2 LUMBAGO/ LOW BACK PAIN 11/21/2011 ELIZABETH LARSON APRN 724.2 LUMBAGO/ LOW BACK PAIN 11/28/2011 Ot 789.09 ABDOMINAL PAIN, OTHER SPECIFIED SITE 12/08/2011 Ot 789.00 ABDOMINAL PAIN, UNSPECIFIED SITE 01/19/2012 MARIA G VILLANUEVA DO 788.1 DYSURIA 01/19/2012 788.1 DYSURIA 01/19/2012 TRISTIN RODRIGUEZ APRN 788.1 pain during urination (dysuria) 01/19/2012 788.1 pain during urination (dysuria) 01/19/2012 788.1 pain during urination (dysuria) 01/19/2012 788.1 pain during urination (dysuria) 01/19/2012 NEOELIZABETH FOY APRN 788.1 pain during urination (dysuria) 03/05/2012 Ot 789.00 ABDOMINAL PAIN, UNSPECIFIED SITE 03/30/2012 Ot 564.00 UNSPEC CONSTIPATION 03/30/2012 Ot 789.00 ABDOMINAL PAIN, UNSPECIFIED SITE 05/22/2012 626.2 EXCESSIVE OR FREQUENT MENSTRUATION 05/22/2012 V03.89 MENINGOCOCCAL DX 05/22/2012 V04.89 GARDASIL (HPV) DX 05/22/2012 V06.1 TDAP DX 05/22/2012 V69.2 HIGH-RISK SEXUAL BEHAVIOR 05/22/2012 626.2 EXCESSIVE OR FREQUENT MENSTRUATION 05/22/2012 V03.89 MENINGOCOCCAL DX 05/22/2012 V04.89 GARDASIL (HPV) DX 05/22/2012 V06.1 TDAP DX 05/22/2012 V69.2 HIGH-RISK SEXUAL BEHAVIOR 05/22/2012 626.2 EXCESSIVE OR FREQUENT MENSTRUATION 05/22/2012 V03.89 MENINGOCOCCAL DX 05/22/2012 V04.89 GARDASIL (HPV) DX 05/22/2012 V06.1 TDAP DX 05/22/2012 V69.2 HIGH-RISK SEXUAL BEHAVIOR 05/22/2012 ELIZABETH LARSON APRN 626.2 EXCESSIVE OR FREQUENT MENSTRUATION 05/22/2012 ELIZABETH LARSON APRN V03.89 MENINGOCOCCAL DX 05/22/2012 ELIZABETH LARSON APRN V04.89 GARDASIL (HPV) DX 05/22/2012 ELIZABETH LARSON APRN V06.1 TDAP DX 05/22/2012 ELIZABETH LARSON APRN V69.2 HIGH-RISK SEXUAL BEHAVIOR 07/30/2012 599.0 URINARY TRACT INFECTION SITE NOT SPECIFIED 07/30/2012 ELIZABETH LARSON APRN 599.0 URINARY TRACT INFECTION SITE NOT SPECIFIED 10/02/2012 CHIP TEJADA, SHELLEY Cerda Ot 625.9 FEM GENITAL SYMPTOMS NOS 12/01/2012 LOLY TEJADA, REBEKAH Cummings Ot 789.00 ABDOMINAL PAIN, UNSPECIFIED SITE 02/24/2013 ELIZABETH LARSON APRN V72.42 TEST POSITIVE RESULT 02/25/2013 ELIZABETH LARSON APRN V22.0 , NORMAL FIRST 02/27/2013 RUTHIE TEJADA, JOSE DAVID Sweet Ot 564.00 UNSPEC CONSTIPATION 02/27/2013 RUTHIE TEJADA, JOSE DAVID Sweet Ot 651.03 TWIN -ANTEPART 02/27/2013 JOSE DAVID HENDRICKS MD Ot 789.00 ABDOMINAL PAIN, UNSPECIFIED SITE 02/27/2013 RUTHIE TEJADA, JOSE DAVID Sweet Ot V91.09 TWIN GEST, UNABLE TO DETERMINE # OF PLAC 03/14/2013 CHIP TEJADA, SHELLEY Cerda Ot 649.53 SPOTTING COMP , ANTEPARTUM COND 03/15/2013 SHELLEY SAUNDERS MD Ot 599.0 URIN TRACT INFECTION NOS 03/15/2013 SHELLEY SAUNDERS MD Ot 616.10 VAGINITIS NOS 03/15/2013 SHELLEY SAUNDERS MD Ot 640.03 THREATEN ABORT-ANTEPART 03/15/2013 SHELLEY SAUNDERS MD Ot 646.63 INFECTION-ANTEPARTUM 03/15/2013 SHELLEY SAUNDERS MD Ot 789.00 ABDOMINAL PAIN, UNSPECIFIED SITE 06/24/2013 DONAVON TEJADA, RAQUEL Isabel Ot 616.10 VAGINITIS NOS 06/24/2013 RAQUEL RAPHAEL MD Ot 624.8 NONINFLAM DIS VULVA NEC 06/24/2013 RAQUEL RAPHAEL MD Ot 646.63 INFECTION-ANTEPARTUM 06/24/2013 RAQUEL RAPHAEL MD Ot 654.83 ABNORMAL VULVA-ANTEPART 08/30/2013 ESTUARDO VILLANUEVA DOA Chanell Ot 648.93 OTH CURR COND-ANTEPARTUM 08/30/2013 MARIA G VILLANUEVA DO Ot 789.00 ABDOMINAL PAIN, UNSPECIFIED SITE 10/08/2013 RAQUEL RAPHAEL MD Ot 599.0 URIN TRACT INFECTION NOS 10/08/2013 RAQUEL RAPHAEL MD Ot 646.63 INFECTION-ANTEPARTUM 10/17/2013 RAQUEL RAPHAEL MD Ot 644.03 THRT BRANDON LABOR-ANTEPART 10/23/2013 DONAVON TEJADA, RAQUEL Isabel Ot 644.03 THRT BRANDON LABOR-ANTEPART 10/29/2013 RAQUEL RAPHAEL MD Ot 650 NORMAL DELIVERY 10/29/2013 DONAVON TEJADA, RAQUEL Isabel Ot V06.1 [id number], COMBINED [ 10/29/2013 RAQUEL RAPHAEL MD Ot V27.0 DELIVER-SINGLE LIVEBORN 02/12/2015 Ot 530.81 02/12/2015 Ot 787.03 02/12/2015 Ot 620.2 02/12/2015 Ot 530.81 02/12/2015 Ot 553.3 02/12/2015 Ot 530.81 02/12/2015 Ot 569.3 02/12/2015 Ot 789.00 02/12/2015 Ot V72.83 02/12/2015 Ot 599.70 02/12/2015 Ot 789.00 02/12/2015 Ot 564.00 02/12/2015 Ot 578.1 02/12/2015 Ot 789.00 02/12/2015 Ot 625.9 02/12/2015 Ot 753.17 02/12/2015 Ot 789.00 02/12/2015 BILL TEJADA, TROY Connor Ot 599.0 02/12/2015 RAQUEL RAPHAEL MD Ot V28.81 02/12/2015 HALLE WARREN APRN Ot J01.10 ACUTE FRONTAL SINUSITIS, UNSPECIFIED 02/12/2015 HALLE WARREN SIDEHAND Ot R05 COUGH 02/12/2015 Ot 530.81 02/12/2015 Ot 787.03 02/12/2015 Ot 620.2 02/12/2015 Ot 530.81 02/12/2015 Ot 553.3 02/12/2015 Ot 530.81 02/12/2015 Ot 569.3 02/12/2015 Ot 789.00 02/12/2015 Ot V72.83 02/12/2015 Ot 599.70 02/12/2015 Ot 789.00 02/12/2015 Ot 564.00 02/12/2015 Ot 578.1 02/12/2015 Ot 789.00 02/12/2015 Ot 625.9 02/12/2015 Ot 753.17 02/12/2015 Ot 789.00 02/12/2015 BILL TEJADA, TROY Connor Ot 599.0 02/12/2015 DONAVON TEJADA, RAQUEL Isabel Ot V28.81 03/12/2016 Ot 530.81 ESOPHAGEAL REFLUX 03/12/2016 Ot 569.3 RECTAL ANAL HEMORRHAGE 03/12/2016 Ot 789.00 ABDOMINAL PAIN, UNSPECIFIED SITE 03/12/2016 Ot V72.83 EXAM PRE-OPERATIVE NEC 03/12/2016 Ot 599.70 HEMATURIA, UNSPECIFIED 03/12/2016 Ot 789.00 ABDOMINAL PAIN, UNSPECIFIED SITE 03/12/2016 Ot 564.00 UNSPEC CONSTIPATION 03/12/2016 Ot 578.1 BLOOD IN STOOL 03/12/2016 Ot 789.00 ABDOMINAL PAIN, UNSPECIFIED SITE 03/12/2016 Ot 625.9 FEM GENITAL SYMPTOMS NOS 03/12/2016 Ot 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 03/12/2016 Ot 789.00 ABDOMINAL PAIN, UNSPECIFIED SITE 03/12/2016 BILL TEJADA, TROY L Ot 599.0 URIN TRACT INFECTION NOS 03/12/2016 DONAVON TEJADA, RAQUEL Isabel Ot V28.81 ENCOUNTER FOR ANATOMIC SURVEY 03/12/2016 DONAL TEJADA, LOGAN Balderas Ot R30.0 DYSURIA 03/12/2016 DONAL TEJADA, LOGAN Balderas Ot Z53.21 PROC/TRTMT NOT CRD OUT D/T PT LV BEF SEE 03/14/2016 DONAL TEJADA, LOGAN Balderas Ot R30.0 DYSURIA 03/14/2016 DONAL TEJADA, LOGAN Balderas Ot Z53.21 PROC/TRTMT NOT CRD OUT D/T PT LV BEF SEE 03/18/2016 DONAL TEJADA, LOGAN Balderas Ot R30.0 DYSURIA 03/18/2016 DONAL TEJADA, LOGAN Balderas Ot Z53.21 PROC/TRTMT NOT CRD OUT D/T PT LV BEF SEE 03/29/2016 Ot 530.81 ESOPHAGEAL REFLUX 03/29/2016 Ot 569.3 RECTAL ANAL HEMORRHAGE 03/29/2016 Ot 789.00 ABDOMINAL PAIN, UNSPECIFIED SITE 03/29/2016 Ot V72.83 EXAM PRE-OPERATIVE NEC 03/29/2016 Ot 599.70 HEMATURIA, UNSPECIFIED 03/29/2016 Ot 789.00 ABDOMINAL PAIN, UNSPECIFIED SITE 03/29/2016 Ot 564.00 UNSPEC CONSTIPATION 03/29/2016 Ot 578.1 BLOOD IN STOOL 03/29/2016 Ot 789.00 ABDOMINAL PAIN, UNSPECIFIED SITE 03/29/2016 Ot 625.9 FEM GENITAL SYMPTOMS NOS 03/29/2016 Ot 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 03/29/2016 Ot 789.00 ABDOMINAL PAIN, UNSPECIFIED SITE 03/29/2016 BILL TEJADA, TROY Connor Ot 599.0 URIN TRACT INFECTION NOS 03/29/2016 DONAVON TEJADA, RAQUEL Isabel Ot V28.81 ENCOUNTER FOR ANATOMIC SURVEY 03/29/2016 DONAL TEJADA, LOGAN Balderas Ot R30.0 DYSURIA 03/29/2016 DONAL TEJADA, LOGAN Balderas Ot Z53.21 PROC/TRTMT NOT CRD OUT D/T PT LV BEF SEE 03/29/2016 CHARLY SOUZA STAR K Ot M54.5 LOW BACK PAIN 03/29/2016 CHARLY SOUZA STAR Chanell Ot N39.0 URINARY TRACT INFECTION, SITE NOT SPECIF 03/30/2016 STAR PARKS DO Ot M54.5 LOW BACK PAIN 03/30/2016 CHARLY SOUZA STAR Chanell Ot N39.0 URINARY TRACT INFECTION, SITE NOT SPECIF 06/30/2016 Ot 564.00 UNSPEC CONSTIPATION 06/30/2016 Ot 578.1 BLOOD IN STOOL 06/30/2016 Ot 789.00 ABDOMINAL PAIN, UNSPECIFIED SITE 06/30/2016 Ot 625.9 FEM GENITAL SYMPTOMS NOS 06/30/2016 Ot 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 06/30/2016 Ot 789.00 ABDOMINAL PAIN, UNSPECIFIED SITE 06/30/2016 BILL TEJADA, TROY Connor Ot 599.0 URIN TRACT INFECTION NOS 06/30/2016 DONAVON TEJADA, RAQUEL Isabel Ot V28.81 ENCOUNTER FOR ANATOMIC SURVEY 07/03/2016 ESPERANZA BURNS MD Ot N91.2 AMENORRHEA, UNSPECIFIED 07/11/2016 ESPERANZA BURNS MD Ot N91.2 AMENORRHEA, UNSPECIFIED 09/07/2016 Ot 564.00 UNSPEC CONSTIPATION 09/07/2016 Ot 578.1 BLOOD IN STOOL 09/07/2016 Ot 789.00 ABDOMINAL PAIN, UNSPECIFIED SITE 09/07/2016 Ot 625.9 FEM GENITAL SYMPTOMS NOS 09/07/2016 Ot 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 09/07/2016 Ot 789.00 ABDOMINAL PAIN, UNSPECIFIED SITE 09/07/2016 BILL TEJADA, TROY Connor Ot 599.0 URIN TRACT INFECTION NOS 09/07/2016 DONAVON TEJADA, RAQUEL Isabel Ot V28.81 ENCOUNTER FOR ANATOMIC SURVEY 09/07/2016 KATY TEJADA, ESPERANZA Delacruz Ot N91.2 AMENORRHEA, UNSPECIFIED Procedures Code [place] [address] UA W/ CULTURE IF INDICATED 01/19/2012 82355 UA W/ CULTURE IF INDICATED 05/08/2012 96011 CULTURE URINE 08/2012 58669 ROUTINE VENIPUNCTURE 05/22/2012 52720 GC/CHLAM URINE (STATE) 05/22/2012 70524 HIV ANTIBODIES (RML) 05/22/2012 47428 [facility] 06/03/2012 03443 URINE TEST (IN-HOUSE) 07/30/2012 67378 UA W/ CULTURE IF INDICATED 07/30/2012 67587 CULTURE URINE 38581 VCUG - VOIDING CYSTOURETHROGRAM 07/30/2012 56595 URINE TEST (IN-HOUSE) 02/24/2013 04226 US OB - EARLY <14 WEEKS 02/25/2013 84093 UA W/ CULTURE IF INDICATED 02/25/2013 96.49 OTHER INSTILLATION 10/27/2013 73.6 EPISIOTOMY 2013 Results Test Result Range Complete urinalysis with reflex to culture - 03/29/16 07:45 Urine color determination YELLOW NRG Urine clarity determination CLEAR NRG Urine pH measurement by test strip 5 5- 9 Specific gravity of urine by test strip 1.010 1.016-1.022 Urine protein assay by test strip, semi-quantitative 3+ NEGATIVE Urine glucose detection by automated test strip NEGATIVE NEGATIVE Erythrocytes detection in urine sediment by light microscopy 5+ NEGATIVE Urine ketones detection by automated test strip NEGATIVE NEGATIVE Urine nitrite detection by test strip NEGATIVE NEGATIVE Urine total bilirubin detection by test strip NEGATIVE NEGATIVE Urine urobilinogen measurement by automated test strip (mass/volume) NORMAL NORMAL Urine leukocyte esterase detection by dipstick 3+ NEGATIVE Automated urine sediment erythrocyte count by microscopy (number/high power field) [HPF] NRG Automated urine sediment leukocyte count by microscopy (number/high power field ) > [HPF] NRG Bacteria detection in urine sediment by light microscopy MODERATE NRG Squamous epithelial cells detection in urine sediment by light microscopy 5-10 NRG Crystals detection in urine sediment by light microscopy NONE NRG Casts detection in urine sediment by light microscopy NONE NRG Mucus detection in urine sediment by light microscopy NEGATIVE NRG Complete urinalysis with reflex to culture YES NRG Bacterial urine culture - 03/29/16 07:45 Bacterial urine culture [id number] NRG COLONY COUNT <10,000 NRG FTX;REPORTABLE SENSITIVITY REPORTED 03/30/16 16:30 NRG FREE TEXT ENTRY 3 MIXED GRAM POSITIVE BETTIE <10,000/ML NRG Bacterial susceptibility panel - 03/29/16 07:45 Gentamicin susceptibility test by minimum inhibitory concentration <= NRG Trimethoprim/sulfamethoxazole susceptibility test by minimum inhibitoryconcentration <= NRG Ampicillin susceptibility test by minimum inhibitory concentration <= NRG Tobramycin susceptibility test by minimum inhibitory concentration <= NRG Cefazolin susceptibility test by minimum inhibitory concentration <= NRG Ceftriaxone susceptibility test by minimum inhibitory concentration <= NRG Ampicillin/sulbactam susceptibility test by minimum inhibitory concentration <= NRG Piperacillin/tazobactam susceptibility test by minimum inhibitory concentration <= NRG Ciprofloxacin susceptibility test by minimum inhibitory concentration <= NRG Meropenem susceptibility test by minimum inhibitory concentration <= NRG Nitrofurantoin susceptibility test by minimum inhibitory concentration <= NRG Aztreonam susceptibility test by minimum inhibitory concentration <= NRG Extended spectrum beta lactamase (ESBL) producing bacteria susceptibility test by minimum inhibitory concentration - NRG Serum or plasma choriogonadotropin measurement (units/volume) - 06/30/16 08:51 Serum or plasma choriogonadotropin measurement (units/volume) < m[iU]/mL <5 Encounters ACCT No. Visit Date/Time Discharge Status Pt. Type Provider Facility Loc./Unit Complaint [id number] 02/25/2013 10:55:00 02/25/2013 23: 59:59 CLS Outpatient ELIZABETH LARSON APRN [id number] 05/22/2012 10:02:00 05/22/2012 23: 59:59 CLS Outpatient [id number] 05/08/2012 13:17:00 05/08/2012 23: 59:59 CLS Outpatient TRISTIN RODRIGUEZ APRN [id number] 03/01/2012 12:32:00 03/01/2012 23: 59:59 CLS Outpatient [id number] 01/19/2012 15:37:00 01/19/2012 23: 59:59 CLS Outpatient MARIA G VILLANUEVA DO [id number] 07/30/2012 14:46:00 Document Registration [id number] 05/08/2012 13:17:00 Document Registration
--- NOTE | 2016-09-14 17:57 | ED Integumentary General ---
General Chief Complaint: Bite-Animal/Human/Insect Stated Complaint: PT WAS STUNG IN LT LEG/PAIN AND SWELLING Nursing Triage Note: PT AMBULATED TO ROOM. PT STATES SHE GOT STUNG OR BITE BY SOMETHING ON HER LEFT UPPER THIGH APPROX 30 MINUTES AGO. Source: patient Exam Limitations: no limitations History of Present Illness Time seen by provider: 17:52 Initial Comments To ER with reports of an insect bite or sting. She put on a pair of pants and upon pulling them up she felt a sharp pain in the back of her left thigh. She did not see what bit or stung her. The area was initially "white" according to the grandmother and it is intensely painful. She is 9 weeks gestation. Timing/Duration: just prior to arrival Severity: mild Associated Symptoms: denies symptoms Allergies and Home Medications Allergies Coded Allergies: Iodinated Contrast Media - Oral and (Unverified Allergy, Severe, ANAPHYLAXIS, 06/24/13) erythromycin base (Unverified Allergy, Severe, ANAPHYLAXIS, 06/24/13) morphine (Verified Allergy, Intermediate, NAUSEA, 06/24/13) Home Medications Levofloxacin 500 Mg Tablet, 500 MG PO DAILY, #10 Prescribed by: STAR PARKS on 03/29/16823 Tramadol HCl 50 Mg Tablet, 50 MG PO Q4H, #20 Prescribed by: STAR PARKS on 03/29/1624 Constitutional: see HPI EENTM: see HPI Respiratory: no symptoms reported Cardiovascular: no symptoms reported Genitourinary: no symptoms reported Musculoskeletal: no symptoms reported Skin: see HPI Psychiatric/Neurological: No Symptoms Reported Endocrine: No Symptoms Reported Hematologic/Lymphatic: No Symptoms Reported Past Bolspcp-Etjomf-Mrlfma Hx Patient Social History Alcohol Use: Denies Use Recreational Drug Use: No Smoking Status: Never a Smoker 2nd Hand Smoke Exposure: No Recent Foreign Travel: No Contact w/Someone Who Travel: No Recent Infectious Disease Expo: No Recent Hopitalizations: No Immunizations Up To Date Tetanus Booster (TDap): Unknown PED Vaccines UTD: No Seasonal Allergies Seasonal Allergies: Yes Surgeries HX Surgeries: Yes (2002 eye surgery FOR TRAUMA--DOES NOT REMEBER WHICH EYE ) Surgeries: Eye Surgery Respiratory Hx Respiratory Disorders: Yes Respiratory Disorders: Asthma Cardiovascular Hx Cardiac Disorders: No Neurological Hx Neurological Disorders: No Reproductive System Hx Reproductive Disorders: No Sexually Transmitted Disease: No Female Reproductive Disorders: Menstrual Problems, Ovarian Cyst Genitourinary Hx Genitourinary Disorders: Yes (medullary sponge kidney) Genitourinary Disorders: UTI-Chronic Gastrointestinal Hx Gastrointestinal Disorders: Yes Gastrointestinal Disorders: Chronic Constipation Musculoskeletal Hx Musculoskeletal Disorders: No Endocrine Hx Endocrine Disorders: No HEENT HX ENT Disorders: Yes (EYE INJURY/SURGERY 2002) Loss of Vision: Right Cancer Hx Cancer: No Psychosocial Hx Psychiatric Problems: No Integumentary HX Skin/Integumentary Disorder: No Blood Transfusions Hx Blood Disorders: No Adverse Reaction to a Blood Tr: No Family Medical History Family Medial History: Asthma 19 MOTHER G8 SISTER Diabetes mellitus 19 MOTHER Hypertension 19 FATHER 19 MOTHER Thyroid disease 19 MOTHER No Family History of: AIDS Abdominal aortic aneurysm Absilio's disease Alcoholism Alzheimer's disease Aphasia Arthritis Cancer of mouth Cardiovascular disease Cataracts Colon cancer Completed stroke Congenital disease Congenital heart disease Coronary thrombosis Cystic fibrosis Deafness or hearing loss Dementia Drug abuse Dysphasia Fibrocystic disease of breast Gastroenteritis Glaucoma Headache disorder Hypercholesterolemia Infertility Kidney disease Myocardial infarction Neoplasm Not obtainable due to adoption Osteoporosis Parkinson's disease Prostate cancer Psychosocial problem Respiratory disorder Seizure disorder Severe allergy Tuberculosis Visual disorder Physical Exam Vital Signs Vital Sign - Last 12Hours 09/14/16 17:18 Temp 97.6 Pulse 88 Resp 18 B/P (MAP) 121/65 Pulse Ox 99 O2 Delivery Room Air Capillary Refill : Less Than 3 Seconds General Appearance: WD/WN, no apparent distress HEENT: PERRL/EOMI, normal ENT inspection Neck: non-tender, full range of motion Respiratory: normal breath sounds, no respiratory distress, no accessory muscle use Gastrointestinal: normal bowel sounds, non tender, soft Extremities: normal range of motion, non-tender Neurologic/Psychiatric: alert, normal mood/affect, oriented x 3 Skin: normal color, warm/dry Skin Problem Location: lower extremities Skin Problem Character: other (there is a half-dollar sized area of erythema to the posterior left thigh with a small single punctum in Center.) Progress/Results/Core Measures Results/Orders My Orders Orders - HALLE WARREN APRN Diphenhydramine Tablet (Benadryl Tablet) (09/14/16 18:00) Hydrocortisone 1% Cream (Hydrocortisone (09/14/16 21:00) Vital Signs/I&O Vital Sign - Last 12Hours 09/14/16 17:18 Temp 97.6 Pulse 88 Resp 18 B/P (MAP) 121/65 Pulse Ox 99 O2 Delivery Room Air Blood Pressure Mean: 83 Departure Impression Impression: Primary Impression: Insect bite Disposition: 01 HOME, SELF-CARE Condition: Stable Departure-Patient Inst. Decision time for Depature: 17:55 Referrals: RAQUEL RAPHAEL MD (PCP/Family) Primary Care Physician Patient Instructions: Insect Bites and Stings (DC) Add. Discharge Instructions: 1. Return to ER for any other symptoms such as fever, vomiting, or body rash or other concerns 2. See your doctor tomorrow for follow-up 3. Use Benadryl as needed for itching and topical hydrocortisone cream twice daily next 2 days. All discharge instructions reviewed with patient and/or family. Voiced understanding. HALLE WARREN [employer]ANCE BUSINESS PARTNER Sep 14, 2016 17:57
[2016-09-14] MEDS ORDERED: diphenhydrAMINE 25 MG TAB (BENADRYL) PO ONE (18:00)
[2016-09-14 18:10] VITALS: BP 121/65
[2016-09-14] MEDS ORDERED: HYDROCORTISONE 1% CREAM 30 GM TUBE TOP SCH (21:00)
== END 2016-09-14 18:10 | disposition home or self-care (01) ==
LOC: EDUNIT# 17:07 → ER 17:10
DX: O99.89 Other specified diseases and conditions complicating pregnancy, childbirth and the puerperium (principal); S70.362A Insect bite (nonvenomous), left thigh, initial encounter; W57.XXXA Bitten or stung by nonvenomous insect and other nonvenomous arthropods, initial encounter; Y92.009 Unspecified place in unspecified non-institutional (private) residence as the place of occurrence of the external cause; Y99.8 Other external cause status; Z3A.09 9 weeks gestation of pregnancy
CPT/HCPCS: 99283

== ENCOUNTER 2016-10-05 15:59 | Emergency (ER) | payer MEDICAID ==
[~2016-10-05] VITALS: Ht 165.1 cm; Wt 60.8 kg
--- NOTE | 2016-10-05 16:20 | ED GU-Female ---
General Chief Complaint: -Female Stated Complaint: 11 WKS . BLEEDING Source: patient Exam Limitations: no limitations History of Present Illness Time seen by provider: 16:18 Initial Comments To ER with reports of passing blood clots from her vagina about 30 minutes prior to arrival. She denies any abdominal cramping or low back pain. She denies fevers or chills. She is concerned by this because she saw Dr. Rogers in on the first of this month which would've been 2 days ago. During that visit he was unable to find heart tones on ultrasound. She estimates herself to be about 11 weeks gestation. Ab0. Timing/Duration: just prior to arrival Severity/Quality: moderate Radiation: none, suprapubic Activities at Onset: none Associated Symptoms: No lower back pain, No nausea/vomiting Allergies and Home Medications Allergies Coded Allergies: Iodinated Contrast Media - Oral and (Unverified Allergy, Severe, ANAPHYLAXIS, 06/24/13) erythromycin base (Unverified Allergy, Severe, ANAPHYLAXIS, 06/24/13) morphine (Verified Allergy, Intermediate, NAUSEA, 06/24/13) Home Medications No Active Prescriptions or Reported Meds Constitutional: see HPI, No chills, No fever EENTM: see HPI Respiratory: no symptoms reported Cardiovascular: no symptoms reported Gastrointestinal: No abdominal pain Genitourinary: no symptoms reported Musculoskeletal: no symptoms reported Skin: no symptoms reported Psychiatric/Neurological: No Symptoms Reported Endocrine: No Symptoms Reported Past Jvvqgeu-Byibrd-Tgetxg Hx Patient Social History 2nd Hand Smoke Exposure: No Recent Foreign Travel: No Contact w/Someone Who Travel: No Recent Hopitalizations: No Immunizations Up To Date Tetanus Booster (TDap): Unknown PED Vaccines UTD: No Seasonal Allergies Seasonal Allergies: Yes Surgeries HX Surgeries: Yes (2002 eye surgery FOR TRAUMA--DOES NOT REMEBER WHICH EYE ) Surgeries: Eye Surgery Respiratory Hx Respiratory Disorders: Yes Respiratory Disorders: Asthma Cardiovascular Hx Cardiac Disorders: No Neurological Hx Neurological Disorders: No Reproductive System Hx Reproductive Disorders: No Sexually Transmitted Disease: No Female Reproductive Disorders: Menstrual Problems, Ovarian Cyst Genitourinary Hx Genitourinary Disorders: Yes (medullary sponge kidney) Genitourinary Disorders: UTI-Chronic Gastrointestinal Hx Gastrointestinal Disorders: Yes Gastrointestinal Disorders: Chronic Constipation Musculoskeletal Hx Musculoskeletal Disorders: No Endocrine Hx Endocrine Disorders: No HEENT HX ENT Disorders: Yes (EYE INJURY/SURGERY 2003) Loss of Vision: Right Cancer Hx Cancer: No Psychosocial Hx Psychiatric Problems: No Integumentary HX Skin/Integumentary Disorder: No Blood Transfusions Hx Blood Disorders: No Adverse Reaction to a Blood Tr: No Family Medical History Family Medial History: Asthma 19 MOTHER G8 SISTER Diabetes mellitus 19 MOTHER Hypertension 19 FATHER 19 MOTHER Thyroid disease 19 MOTHER No Family History of: AIDS Abdominal aortic aneurysm Hickman's disease Alcoholism Alzheimer's disease Aphasia Arthritis Cancer of mouth Cardiovascular disease Cataracts Colon cancer Completed stroke Congenital disease Congenital heart disease Coronary thrombosis Cystic fibrosis Deafness or hearing loss Dementia Drug abuse Dysphasia Fibrocystic disease of breast Gastroenteritis Glaucoma Headache disorder Hypercholesterolemia Infertility Kidney disease Myocardial infarction Neoplasm Not obtainable due to adoption Osteoporosis Parkinson's disease Prostate cancer Psychosocial problem Respiratory disorder Seizure disorder Severe allergy Tuberculosis Visual disorder Physical Exam Vital Signs Vital Sign - Last 12Hours 10/05/16 16:10 Temp 98.0 Pulse 94 Resp 16 B/P (MAP) 129/80 Pulse Ox 99 Capillary Refill : General Appearance: WD/WN, no apparent distress HEENT: PERRL/EOMI, normal ENT inspection Neck: non-tender, full range of motion Cardiovascular: regular rate, rhythm, no murmur Respiratory: normal breath sounds, no respiratory distress, no accessory muscle use Gastrointestinal: normal bowel sounds, non tender, soft Extremities: normal range of motion, non-tender Neurologic/Psychiatric: alert, normal mood/affect, oriented x 3 Skin: normal color, warm/dry Progress/Results/Core Measures Results/Orders Lab Results Laboratory Tests Test 10/05/16 16:27 10/05/16 16:55 Range/Units White Blood Count 9.1 4.3-11.0 10^3/uL Red Blood Count 4.30 L 4.35-5.85 10^6/uL Hemoglobin 13.2 11.5-16.0 G/DL Hematocrit 38 35-52 % Mean Corpuscular Volume 89 80-99 FL Mean Corpuscular Hemoglobin 31 25-34 PG Mean Corpuscular Hemoglobin Concent 35 32-36 G/DL Red Cell Distribution Width 12.3 10.0-14.5 % Platelet Count 198 130-400 10^3/uL Mean Platelet Volume 11.2 H 7.4-10.4 FL Neutrophils (%) (Auto) 68 42-75 % Lymphocytes (%) (Auto) 24 12-44 % Monocytes (%) (Auto) 5 0-12 % Eosinophils (%) (Auto) 3 0-10 % Basophils (%) (Auto) 0 0-10 % Neutrophils # (Auto) 6.1 1.8-7.8 X 10^3 Lymphocytes # (Auto) 2.2 1.0-4.0 X 10^3 Monocytes # (Auto) 0.5 0.0-1.0 X 10^3 Eosinophils # (Auto) 0.3 0.0-0.3 10^3/uL Basophils # (Auto) 0.0 0.0-0.1 10^3/uL Human Chorionic Gonadotropin, Quant 90075 H <5 MIU/ML Urine Color YELLOW Urine Clarity CLEAR Urine pH 5 5-9 Urine Specific Seltzer 1.020 1.016-1.022 Urine Protein NEGATIVE NEGATIVE Urine Glucose (UA) NEGATIVE NEGATIVE Urine Ketones NEGATIVE NEGATIVE Urine Nitrite NEGATIVE NEGATIVE Urine Bilirubin NEGATIVE NEGATIVE Urine Urobilinogen NORMAL NORMAL MG/DL Urine Leukocyte Esterase 2+ H NEGATIVE Urine RBC (Auto) 5+ H NEGATIVE Urine RBC 10-25 H /HPF Urine WBC 5-10 H /HPF Urine Squamous Epithelial Cells 10-25 H /HPF Urine Crystals NONE /LPF Urine Bacteria FEW H /HPF Urine Casts NONE /LPF Urine Mucus NEGATIVE /LPF Urine Culture Indicated YES My Orders Orders - HALLE WARREN [employer]LECTION DRIVER Cbc With Automated Diff (10/05/16 16:02) Ua Culture If Indicated (10/05/16 16:02) Hcg,Quantitative (10/05/16 16:02) Us Ob Single Fetus<14 [id number] (10/05/16 16:02) Urine Culture (10/05/16 16:55) Vital Signs/I&O Vital Sign - Last 12Hours 10/05/16 16:10 Temp 98.0 Pulse 94 Resp 16 B/P (MAP) 129/80 Pulse Ox 99 Departure Impression Impression: Primary Impression: Embryonic demise Additional Impression: inevitable miscarriage Disposition: 01 HOME, SELF-CARE Condition: Stable Departure-Patient Inst. Decision time for Depature: 17:21 Referrals: RAQUEL RAPHAEL MD (PCP/Family) Primary Care Physician Patient Instructions: Miscarriage, Urinary Tract Infection, Adult (DC) Add. Discharge Instructions: 1. Call Dr. Raphael tomorrow to make an appointment to be seen. We are unable to see cardiac activity on today's ultrasound as well so if you do not pass this completely on your own, you may need a D&C. 2. Expect continued cramping and bleeding for the next 2-3 days 3. Return to ER for any severe or heavy bleeding, fever, chills or other concerns All discharge instructions reviewed with patient and/or family. Voiced understanding. Scripts Cephalexin (Keflex) 500 Mg Capsule 500 MG PO TID, #21 CAP Prov: HALLE WARREN APRN 10/05/16 Copy Copies To 1: RAQUEL RAPHAEL MD, PETER J APRN Oct 05, 2016 16:20
[2016-10-05 16:36] LABS: BASOPHILS % (AUTO) 0 % (0-10); EOSINOPHILS # (AUTO) 0.3 10^3/uL (0.0-0.3); EOSINOPHILS % (AUTO) 3 % (0-10); LYMPHOCYTES # (AUTO) 2.2 X 10^3 (1.0-4.0); LYMPHOCYTES % (AUTO) 24 % (12-44); MEAN CORPUSCULAR HEMOGLOBIN 31 PG (25-34); MEAN CORPUSCULAR HGB CONC 35 G/DL (32-36); MEAN CORPUSCULAR VOLUME 89 FL (80-99); MEAN PLATELET VOLUME 11.2 FL (7.4-10.4); MONOCYTES # (AUTO) 0.5 X 10^3 (0.0-1.0); MONOCYTES % (AUTO) 5 % (0-12); NEUTROPHILS # (AUTO) 6.1 X 10^3 (1.8-7.8); NEUTROPHILS % (AUTO) 68 % (42-75); PLATELET COUNT 198 10^3/uL (130-400); RED CELL DISTRIBUTION WIDTH 12.3 % (10.0-14.5); WHITE BLOOD COUNT 9.1 10^3/uL (4.3-11.0)
--- NOTE | 2016-10-05 17:18 | Diagnostic Imaging Report ---
PROCEDURE: US OB SINGLE FETUS <14 WKS. TECHNIQUE: Multiple real-time grayscale images were obtained over the gravid uterus in various projections. INDICATION: Vaginal bleeding for one day. FINDINGS: Ultrasonography reveals finley intrauterine gestation. [place]-rump length is approximately 2.3 cm, indicating gestational age of 9 weeks. No internal cardiac activity was appreciated. There is no evidence of significant hematoma. IMPRESSION: Absence of cardiac activity with crown-rump length of 2.3 cm is consistent with embryonic demise. Dictated by: Dictated on workstation # [id number]
[2016-10-05 17:27] LABS: BILIRUBIN,URINE NEGATIVE (NEGATIVE); KETONES,URINE NEGATIVE (NEGATIVE); LEUKOCYTE ESTERASE ,URINE 2+ (NEGATIVE); NITRITE,URINE NEGATIVE (NEGATIVE); PH,URINE 5 (5-9); PROTEIN,URINE NEGATIVE (NEGATIVE); UROBILINOGEN,URINE NORMAL (NORMAL)
[2016-10-05] MEDS ORDERED: CEPH-507 PO (17:59)
[2016-10-05 18:05] VITALS: BP 135/94
[2016-10-06] MEDS ORDERED: OXYC-202 PO (16:19)
== END 2016-10-05 18:05 | disposition home or self-care (01) ==
LOC: EDUNIT# 15:59 → ER 16:00
DX: O36.4XX0 Maternal care for intrauterine death, not applicable or unspecified (principal); O03.9 Complete or unspecified spontaneous abortion without complication; Z3A.09 9 weeks gestation of pregnancy
CPT/HCPCS: 36415; 76801; 81000; 84702; 85025; 87088; 99282

== ENCOUNTER 2016-10-06 13:44 | Day surgery (SDC) | payer MEDICAID ==
[~2016-10-06] VITALS: Ht 165.1 cm; Wt 61.0 kg
[~2016-10-06 13:44] MED LIST changes: +CEPH-507 PO
[2016-10-06 14:00] VITALS: BP 106/74
[2016-10-06] MEDS ORDERED: ceFAZolin 1,000 MG (ANCEF) VIAL ONE (14:05)
[2016-10-06] MEDS ORDERED: NS (IVPB) 50 ML ONE (14:05)
[2016-10-06 14:20] LABS: BASOPHILS % (AUTO) 0 % (0-10); EOSINOPHILS # (AUTO) 0.2 10^3/uL (0.0-0.3); EOSINOPHILS % (AUTO) 2 % (0-10); LYMPHOCYTES # (AUTO) 1.8 X 10^3 (1.0-4.0); LYMPHOCYTES % (AUTO) 17 % (12-44); MEAN CORPUSCULAR HEMOGLOBIN 31 PG (25-34); MEAN CORPUSCULAR HGB CONC 35 G/DL (32-36); MEAN CORPUSCULAR VOLUME 90 FL (80-99); MEAN PLATELET VOLUME 11.3 FL (7.4-10.4); MONOCYTES # (AUTO) 0.5 X 10^3 (0.0-1.0); MONOCYTES % (AUTO) 5 % (0-12); NEUTROPHILS # (AUTO) 8.2 X 10^3 (1.8-7.8); NEUTROPHILS % (AUTO) 76 % (42-75); PLATELET COUNT 184 10^3/uL (130-400); RED CELL DISTRIBUTION WIDTH 12.3 % (10.0-14.5); WHITE BLOOD COUNT 10.8 10^3/uL (4.3-11.0)
[2016-10-06] MEDS ORDERED: ceFAZolin 1 GM/NS 50 ML IVPB IV ONE ×2 (14:30)
[2016-10-06] MEDS ORDERED: ONDANSETRON 4 MG/2 ML (SDV) Z0FRAN IV ONE (14:45)
[2016-10-06] MEDS ORDERED: FAMOTIDINE 20MG/2ML IV (PEPCID) IV ONE (14:45)
[2016-10-06] MEDS: LACTATED RINGERS 1,000 ML IV PRN ×2 (15:27→16:47)
--- NOTE | 2016-10-06 16:13 | Progress Note-Pre Operative ---
Pre-Operative Progress Note H&P Reviewed The H&P was reviewed, patient examined and no changes noted. Date Seen by Provider: Oct 06, 2016 Time Seen by Provider: 16:13 Date H&P Reviewed: Oct 06, 2016 Time H&P Reviewed: 16:13 Pre-Operative Diagnosis: 9-11 week intrauterine demise/missed AB DMITRY FREEMAN MD Oct 06, 2016 4:13 pm
--- NOTE | 2016-10-06 16:15 | Progress Note-Pre Operative ---
Pre-Operative Progress Note H&P Reviewed The H&P was reviewed, patient examined and no changes noted. Date Seen by Provider: Oct 06, 2016 Time Seen by Provider: 16:14 Date H&P Reviewed: Oct 06, 2016 Time H&P Reviewed: 16:14 Pre-Operative Diagnosis: missed AB at 11 weeks gestation/ demise DMITRY FREEMAN MD Oct 06, 2016 4:15 pm
[2016-10-06] MEDS ORDERED: SEVOFLURANE (ULTANE) 15 ML INHAL SOLN ONE (16:16)
[2016-10-06] MEDS ORDERED: DEXAMETHASONE PF 10 MG/ML (DECADRON) VIAL ONE (16:16)
[2016-10-06] MEDS ORDERED: LACTATED RINGERS 1,000 ML IV ONE ×2 (16:16→16:54)
[2016-10-06] MEDS ORDERED: MIDAZOLAM 2 MG/2 ML (VERSED) VIAL ONE (16:16)
[2016-10-06] MEDS ORDERED: proPOfol 200 MG/20 ML (DIPRIVAN) VIAL IV ONE (16:16)
[2016-10-06] MEDS ORDERED: fentaNYL INJECTION 100 MCG/2 ML AMP ONE (16:16)
[2016-10-06] MEDS ORDERED: LIDOCAINE PF 2% 5 ML (XYLOCAINE) VIAL ONE (16:16)
--- NOTE | 2016-10-06 16:16 | Progress Note-Post Operative ---
Post-Operative Progess Note Surgeon (s)/Copyright Manager (s) Surgeon DMITRY FREEMAN MD Copyright Manager: Man FREEMAN CC5 Pre-Operative Diagnosis missed AB at 11 weeks gestation/ demise Post-Operative Diagnosis same Procedure & Operative Findings Date of Procedure 10/06/16 Procedure Performed/Findings D&C Anesthesia Type geta Estimated Blood Loss Estimated blood loss (mL): 100 cc Specimens/Packing Specimens Removed POC / uterine contents Packing: none DMITRY FREEMAN MD Oct 06, 2016 16:16
[2016-10-06] MEDS ORDERED: D5 LR IV SOLUTION 1,000 ML IV SCH (16:17)
[2016-10-06] MEDS ORDERED: OXYC-202 PO (16:19)
--- NOTE | 2016-10-06 16:21 | Discharge Instructions ---
Discharge Instructions Discharge Medications New, Converted or Re-Newed RX: RX on Chart Patient Instructions Patient Instructions: as directed Return to The Hospital For: as directed Activity & Diet Discharge Diet: No Restrictions Activity as Tolerated: No Orders-Post D/C & Referrals Call to make follow up appt. for patient in 2 weeks. DMITRY FREEMAN MD Oct 06, 2016 4:21 pm
[2016-10-06] MEDS ORDERED: PROMETHAZINE INJ 25 MG/ML (PHENERGAN) AMP IM ONE (16:30)
[2016-10-06] MEDS ORDERED: oxyCODONE/APAP 10/325MG (PERCOCET 10) TABLET PO PRN (16:30)
[2016-10-06] MEDS ORDERED: MEPERIDINE (DEMEROL) INJ 100 MG/ML IM ONE (16:30)
[2016-10-06] MEDS ORDERED: KETOROLAC 30 MG/ML VIAL IVP ONE (16:30)
[2016-10-06] MEDS ORDERED: ONDANSETRON 4 MG/2 ML (SDV) Z0FRAN IVP PRN (16:30)
[2016-10-06] MEDS ORDERED: KETOROLAC 30 MG/ML VIAL ONE (17:12)
[2016-10-06 17:45] VITALS: BP 112/74
[2016-10-06 18:00] VITALS: BP 112/74
[2016-10-06 20:00] VITALS: BP 112/70
--- NOTE | 2016-10-06 20:12 | OPERATIVE REPORT ---
DATE OF SERVICE: 10/06/2016 PREOPERATIVE DIAGNOSIS: Eleven week intrauterine demise, missed . POSTOPERATIVE DIAGNOSIS: Eleven week intrauterine demise, missed . OPERATIVE PROCEDURE: Dilation and curettage. OPERATIVE DESCRIPTION: With the patient in the supine position under satisfactory general anesthesia, she repositioned in the dorsal lithotomy position in the [facility] stirrups and prepped and draped in the usual fashion for vaginal surgery. The urinary bladder was emptied with a straight catheter. A weighted speculum was placed in the posterior fornix of the vagina and the cervix was exposed and grasped anteriorly with a single-tooth tenaculum. The uterus was sounded to 11.5 cm with uterine sound and the cervix was then serially dilated with Dae dilators and then a final step in dilation was a #9-10 Hegar dilator. A #10 curved suction curette was introduced and a large amount of trophoblastic and decidual appearing tissue as well as blood clot and debris as well as amniotic fluid was evacuated. The suction curette was removed. The endometrial cavity was sharply curettaged in all 4 quadrants to a good uterine cry. The curved suction curette was reintroduced and all blood clot and debris evacuated from the uterus. The tenaculum was removed. There was some bleeding from one of the puncture sites. This was controlled with an application of silver nitrate. There was minimal bleeding from the cervical os. The uterus had been 10-12 weeks' size prior to the procedure and it was now decreased in size to approximately 8 weeks' size. Sponge and needle counts were correct on completion. Estimated blood loss for the procedure was around 100 mL. The patient tolerated the procedure well, was uneventfully awakened from general anesthesia and transferred to the recovery room in stable condition with plans for discharge home PAR. Job ID: [id number] DocumentID: [id number] Dictated Date: 10/06/2016 16:56:18 Schedule Hanger Date: 10/06/2016 20:12:17 Dictated By: DMITRY FREEMAN MD
[2016-10-06 20:15] VITALS: BP 112/70
== END 2016-10-06 20:45 | disposition home or self-care (01) ==
LOC: SDC 13:44 → WS 17:45 → SDC 20:45
PROVIDERS: ATTEND Obstetrics & Gynecology
DX: O02.1 Missed abortion (principal)
CPT/HCPCS: 36415; 85025; 86850; 86900; 86901; 87081; 96361

== ENCOUNTER 2016-10-07 14:51 | Emergency (ER) | payer MEDICAID ==
[~2016-10-07] VITALS: Ht 160 cm; Wt 60.3 kg
[~2016-10-07 14:51] MED LIST changes: +OXYC-202 PO
[2016-10-07 16:11] VITALS: BP 109/62
--- NOTE | 2016-10-07 16:16 | ED General ---
General Chief Complaint: General Problems/Pain Stated Complaint: HIGH BP, DIZZY History of Present Illness Time Seen by Provider: 16:10 Initial Comments Agent had D&C yesterday by Dr. Salomon, she has been feeling dizzy today, she checked her blood pressure cuff with a monitor at home and found it to be 170s/150s and came directly here. She has had 44 ounces of Sprite and 44 ounces of Mountain Dew today. She has had no water intake. She has eaten normal food. She denies any increased vaginal discharge since the D&C. She is taking Keflex for UTI and oxycodone for pain. Timing/Duration: 1-3 Hours Severity: Mild Associated Systoms: Denies Symptoms Allergies and Home Medications Allergies Coded Allergies: Iodinated Contrast- Oral and IV Dye (Unverified Allergy, Severe, ANAPHYLAXIS, 06/24/13) erythromycin base (Unverified Allergy, Severe, ANAPHYLAXIS, 06/24/13) morphine (Verified Allergy, Intermediate, NAUSEA, 06/24/13) Home Medications Cephalexin 500 Mg Capsule, 500 MG PO TID, #21 Prescribed by: HALLE WARREN on 10/05/16 1759 Oxycodone HCl/Acetaminophen 1 Each Tablet, 1-2 TAB PO Q4H PRN for PAIN, #60 Ref 0 Prescribed by: DMITRY PATHAK on 10/06/16 1619 Constitutional: no symptoms reported, see HPI All Other Systems Reviewed Negative Unless Noted: Yes Past Urhjppz-Stztln-Hzsxmb Hx Patient Social History Alcohol Use: Denies Use Recreational Drug Use: No Smoking Status: Never a Smoker 2nd Hand Smoke Exposure: No Recent Foreign Travel: No Contact w/Someone Who Travel: No Recent Hopitalizations: No Immunizations Up To Date Tetanus Booster (TDap): Unknown PED Vaccines UTD: No Seasonal Allergies Seasonal Allergies: Yes Surgeries HX Surgeries: Yes (2002 eye surgery FOR TRAUMA--DOES NOT REMEBER WHICH EYE ) Surgeries: Eye Surgery Respiratory Hx Respiratory Disorders: Yes Respiratory Disorders: Asthma Cardiovascular Hx Cardiac Disorders: No Neurological Hx Neurological Disorders: No Reproductive System Hx Reproductive Disorders: No Sexually Transmitted Disease: No Female Reproductive Disorders: Menstrual Problems, Ovarian Cyst Genitourinary Hx Genitourinary Disorders: Yes (medullary sponge kidney) Genitourinary Disorders: UTI-Chronic Gastrointestinal Hx Gastrointestinal Disorders: Yes Gastrointestinal Disorders: Chronic Constipation Musculoskeletal Hx Musculoskeletal Disorders: No Endocrine Hx Endocrine Disorders: No HEENT HX ENT Disorders: Yes (EYE INJURY/SURGERY 2002) Loss of Vision: Right Cancer Hx Cancer: No Psychosocial Hx Psychiatric Problems: No Integumentary HX Skin/Integumentary Disorder: No Blood Transfusions Hx Blood Disorders: No Adverse Reaction to a Blood Tr: No Reviewed Nursing Assessment Reviewed/Agree w Nursing PMH: Yes Family Medical History Family Medial History: Asthma 19 MOTHER G8 SISTER Diabetes mellitus 19 MOTHER Hypertension 19 FATHER 19 MOTHER Thyroid disease 19 MOTHER No Family History of: AIDS Abdominal aortic aneurysm [place]'s disease Alcoholism Alzheimer's disease Aphasia Arthritis Cancer of mouth Cardiovascular disease Cataracts Colon cancer Completed stroke Congenital disease Congenital heart disease Coronary thrombosis Cystic fibrosis Deafness or hearing loss Dementia Drug abuse Dysphasia Fibrocystic disease of breast Gastroenteritis Glaucoma Headache disorder Hypercholesterolemia Infertility Kidney disease Myocardial infarction Neoplasm Not obtainable due to adoption Osteoporosis Parkinson's disease Prostate cancer Psychosocial problem Respiratory disorder Seizure disorder Severe allergy Tuberculosis Visual disorder Physical Exam Vital Signs Vital Sign - Last 12Hours 10/07/16 10/07/16 15:56 16:34 Temp 98.8 Pulse 77 Resp 18 B/P (MAP) 113/59 Pulse Ox 99 O2 Delivery Room Air Capillary Refill : General Appearance: No Apparent Distress, WD/WN, Other (face slightly flushed no rash.) Eyes: Bilateral Eye Normal Inspection, Bilateral Eye PERRL HEENT: PERRL/EOMI, TMs Normal, Normal ENT Inspection, Pharynx Normal, Other ( oral mucosa pink and moist) Neck: Full Range of Motion, Normal Inspection, Non Tender, Supple Respiratory: Chest Non Tender, Lungs Clear, Normal Breath Sounds Cardiovascular: Regular Rate, Rhythm, No Edema, No Murmur Gastrointestinal: Normal Bowel Sounds, No Organomegaly, No Pulsatile Mass, Non Tender, Soft Neurologic/Psychiatric: Alert, Oriented x3, No Motor/Sensory Deficits, Normal Mood/Affect Skin: Normal Color, Warm/Dry Lymphatic: No Adenopathy Progress/Results/Core Measures Results/Orders Vital Signs/I&O Vital Sign - Last 12Hours 10/07/16 10/07/16 10/07/16 15:56 16:11 16:34 Temp 98.8 Pulse 77 82 Resp 18 18 B/P (MAP) 113/59 109/62 Pulse Ox 99 O2 Delivery Room Air Room Air Progress Note : Time: 16:10 Progress Note Initial evaluation completed, blood pressure since admission to the emergency department has been Slnwa-aj-Oycpovlkxxs. Taking ice chips. No other complaints. Departure Impression Impression: Primary Impression: Dizziness Disposition: 01 HOME, SELF-CARE Condition: Stable Departure-Patient Inst. Decision time for Depature: 16:15 Referrals: RAQUEL RAPHAEL MD (PCP/Family) Primary Care Physician Patient Instructions: Dizziness, Nonvertigo, (DC) Add. Discharge Instructions: Obtain a new blood pressure cuff, or have yours calibrated. Increase water intake, one bottle every other hour. Change positions slowly and carefully. Take a women's multivitamin daily. Return to emergency department for changes in level of consciousness, increased dizziness, or new problems. All discharge instructions reviewed with patient and/or family. Voiced understanding. Copy Copies To 1: DMITRY SALOMON MD, AMY ARNP Oct 07, 2016 16:16
[2016-10-07 16:34] VITALS: BP 119/75
== END 2016-10-07 16:34 | disposition home or self-care (01) ==
LOC: EDUNIT# 14:51 → ER 14:52
DX: R42 Dizziness and giddiness (principal); N39.0 Urinary tract infection, site not specified; J45.909 Unspecified asthma, uncomplicated; Z87.828 Personal history of other (healed) physical injury and trauma; Z98.890 Other specified postprocedural states
CPT/HCPCS: 99281

== ENCOUNTER 2017-02-04 08:44 | Emergency (ER) | payer MEDICAID ==
[~2017-02-04] VITALS: Ht 152.4 cm; Wt 59.9 kg
--- OUTSIDE RECORDS SUMMARY | 2017-02-04 08:50 | XMS REPORT | Clinical Summary ---
Author Author [facility] Organization [facility] Address Unknown Phone Unavailable Care Team Providers Care Manager Workers Compensation Name Role Phone PCP Unavailable Source Comments Some departments are not documenting in the electronic medical record. If you do not see the information that you expected, contact Release of Information in the Health Information Management department at [phone] for further assistance in locating additional records.[facility] Allergies Active Allergy Reactions Severity Noted Date Comments Erythromycin SHORTNESS OF BREATH 09/17/2012 Iodinated Contrast- Oral HIVES 09/17/2012 And Iv Dye Morphine HIVES 09/17/2012 Current Medications Prescription Sig. Disp. Refills Start [...] 12 Active (GLYCOLAX; MIRALAX) 17 13 gram/dose powderIndications: Constipation bisacodyl (DULCOLAX) 5 mg Take 2 Tabs by mouth 30 Tab 12 01/07/20 Active tabletIndications: every other day as needed 13 Abdominal pain, for Constipation. Constipation omeprazole DR(+) Take 1 Cap by mouth twice 60 Cap 12 01/07/20 Active (PRILOSEC) 20 mg daily. 13 capsuleIndications: Abdominal pain lubiprostone (AMITIZA) 24 Take 1 Cap by mouth twice 60 Cap 3 01/07/20 Active mcg capIndications: daily with meals. 13 Constipation, Abdominal pain Active Problems Problem Noted Date Eosinophilic esophagitis [...] primary care. Abdominal pain 09/20/2012 Constipation 09/20/2012 Family History Medical History Relation Name Comments Eczema Maternal Grandfather Thyroid Disease Maternal Grandfather Seasonal Allergies Maternal Grandmother Asthma Mother Drug reaction Mother Food Allergies Mother Seasonal Allergies Mother Thyroid Disease Mother Food Allergies Sister Relation Name Status Comments Maternal Grandfather Maternal Grandmother Mother Sister Social History Tobacco Use Types Packs/Day Years Used Date Never Smoker Comments: 11.4.13 Alcohol Use Drinks/Week oz/Week Comments No Sex Assigned at Date Recorded Not on file Last Filed Vital Signs Vital Sign Reading Time Taken Blood Pressure 108/71 01/22/2013 12:34 PM [facility] Pulse 89 01/22/2013 12:34 PM [facility] Temperature 36.5 C (97.7 F) 01/22/2013 12:34 PM [facility] Respiratory Rate 16 01/22/2013 12:34 PM [facility] Oxygen Saturation 98% 01/22/2013 12:34 PM [facility] [employer] Inhaled Oxygen - - Concentration Weight 54.6 kg (120 lb 6.4 oz) 01/22/2013 12:34 PM [facility] Height 148.7 cm (4' 10.54") 01/22/2013 12:34 PM [facility] Body Mass Index 24.7 01/22/2013 12:34 PM [facility] Plan of Treatment Health Maintenance Due Date Last Done Comments PHYSICAL (COMPREHENSIVE) 11/03/2002 EXAM HPV VACCINES (1 of 3 - 11/03/2006 Female 3 Dose Series) PERTUSSIS VACCINE 11/03/2006 TETANUS VACCINE 11/03/2012 INFLUENZA VACCINE 10/03/2016 CERVICAL CANCER SCREENING 11/03/2016 Results Not on filefrom Last 3 Months
[2017-02-04 09:22] LABS: BILIRUBIN,URINE NEGATIVE (NEGATIVE); KETONES,URINE NEGATIVE (NEGATIVE); LEUKOCYTE ESTERASE ,URINE 1+ (NEGATIVE); NITRITE,URINE NEGATIVE (NEGATIVE); PH,URINE 7 (5-9); PROTEIN,URINE NEGATIVE (NEGATIVE); UROBILINOGEN,URINE NORMAL (NORMAL)
--- NOTE | 2017-02-04 09:26 | ED GU-Female ---
General Chief Complaint: -Female Stated Complaint: VAGINAL BLEEDING AFTER POSTIVE TEST Nursing Triage Note: c/o vaginal spotting. Reported had a positive home test yesterday. This morning she had cramping followed by a small gush of blood. Denies pain currently. Nursing Sepsis Screen: No Definite Risk Source: patient Exam Limitations: no limitations History of Present Illness Time seen by provider: 09:19 Initial Comments Here with positive home test yesterday. She did this because she missed her period last month. We'll get this morning and had abdominal cramping and noted vaginal bleeding. States she does not usually get cramps with her periods. She is concerned about and miscarriage. She did just have a miscarriage in October of this year. She is sexually active and denies vaginal discharge or pain otherwise. Denies other concerns. Timing/Duration: this morning Severity/Quality: moderate, cramping Location: suprapubic Radiation: none Activities at Onset: none Prior Genitourinary Problems: none Sexual [place] History: less than 2 months ago Modifying Factors: Improves With Resting Associated Symptoms: abdominal pain, No dysuria, No lower back pain, No nausea/ vomiting, No urinary frequency Allergies and Home Medications Allergies Coded Allergies: Iodinated Contrast- Oral and IV Dye (Unverified Allergy, Severe, ANAPHYLAXIS, 06/24/13) erythromycin base (Unverified Allergy, Severe, ANAPHYLAXIS, 06/24/13) morphine (Verified Allergy, Intermediate, NAUSEA, 06/24/13) Home Medications Cephalexin 500 Mg Capsule, 500 MG PO TID, #21 Prescribed by: HALLE WARREN on 10/05/16 1759 Oxycodone HCl/Acetaminophen 1 Each Tablet, 1-2 TAB PO Q4H PRN for PAIN, #60 Ref 0 Prescribed by: DMITRY PATHAK on 10/06/16 1619 Constitutional: see HPI, No chills, No fever EENTM: no symptoms reported Respiratory: no symptoms reported Cardiovascular: no symptoms reported Gastrointestinal: see HPI, No nausea, No vomiting Genitourinary: see HPI, pain Musculoskeletal: no symptoms reported Skin: no symptoms reported Past Ylkczxk-Emksmw-Hkdnsn Hx Patient Social History Alcohol Use: Denies Use Recreational Drug Use: No Smoking Status: Never a Smoker 2nd Hand Smoke Exposure: No Recent Foreign Travel: No Contact w/Someone Who Travel: No Recent Infectious Disease Expo: No Recent Hopitalizations: No Immunizations Up To Date Tetanus Booster (TDap): Unknown PED Vaccines UTD: No Seasonal Allergies Seasonal Allergies: Yes Surgeries History of Surgeries: Yes (2002 eye surgery FOR TRAUMA--DOES NOT REMEBER WHICH EYE ) Surgeries: Eye Surgery Respiratory History of Respiratory Disorde: Yes Respiratory Disorders: Asthma Cardiovascular History of Cardiac Disorders: No Neurological History of Neurological Disord: No Reproductive System Hx Reproductive Disorders: No Sexually Transmitted Disease: No Female Reproductive Disorders: Menstrual Problems, Ovarian Cyst Genitourinary History of Genitourinary Disor: Yes Genitourinary Disorders: UTI-Chronic Gastrointestinal History of Gastrointestinal Di: Yes Gastrointestinal Disorders: Chronic Constipation Musculoskeletal History of Musculoskeletal Dis: No Endocrine History of Endocrine Disorders: No HEENT History of HEENT Disorders: No Loss of Vision: Right Cancer History of Cancer: No Psychosocial History of Psychiatric Problem: No Integumentary History of Skin or Integumenta: No Blood Transfusions History of Blood Disorders: No Adverse Reaction to a Blood Tr: No Reviewed Nursing Assessment Reviewed/Agree w Nursing PMH: Yes Family Medical History Family Medial History: Asthma 19 MOTHER G8 SISTER Diabetes mellitus 19 MOTHER Hypertension 19 FATHER 19 MOTHER Thyroid disease 19 MOTHER Physical Exam Vital Signs Vital Sign - Last 12Hours 02/04/17 09:01 Temp 98.2 Pulse 90 Resp 16 B/P (MAP) 123/87 (99) Pulse Ox 99 O2 Delivery Room Air Capillary Refill : Less Than 3 Seconds General Appearance: WD/WN, no apparent distress HEENT: PERRL/EOMI, pharynx normal Neck: full range of motion, supple Cardiovascular: regular rate, rhythm, no murmur Respiratory: lungs clear, normal breath sounds Gastrointestinal: normal bowel sounds, soft, no organomegaly, no pulsatile mass , tenderness (mild suprapubic) Back: normal inspection, no CVA tenderness, no vertebral tenderness Extremities: non-tender, normal inspection Neurologic/Psychiatric: alert, oriented x 3 Skin: normal color, warm/dry Progress/Results/Core Measures Suspected Sepsis Recent Fever Within 48 Hours: No Infection Criteria Present: Suspected New Infection New/Unexplained Altered Menta: No Sepsis Screen: No Definite Risk Sepsis Diagnosis: SIRS Temperature:98.2 Pulse: 90 Respiratory Rate: 16 Laboratory Tests 02/04/17 09:29: White Blood Count 5.5 Blood Pressure 123 /87 Mean: 99 Laboratory Tests 02/04/17 09:29: Platelet Count 170 Results/Orders Lab Results Laboratory Tests Test 02/04/17 09:00 02/04/17 09:29 Range/Units Urine Color YELLOW Urine Clarity CLEAR Urine pH 7 5-9 Urine Specific [place] 1.005 L 1.016-1.022 Urine Protein NEGATIVE NEGATIVE Urine Glucose (UA) NEGATIVE NEGATIVE Urine Ketones NEGATIVE NEGATIVE Urine Nitrite NEGATIVE NEGATIVE Urine Bilirubin NEGATIVE NEGATIVE Urine Urobilinogen NORMAL NORMAL MG/DL Urine Leukocyte Esterase 1+ H NEGATIVE Urine RBC (Auto) 5+ H NEGATIVE Urine RBC TNTC H /HPF Urine WBC 2-5 /HPF Urine Squamous Epithelial Cells 2-5 /HPF Urine Crystals NONE /LPF Urine Bacteria NEGATIVE /HPF Urine Casts NONE /LPF Urine Mucus NEGATIVE /LPF Urine Culture Indicated NO White Blood Count 5.5 4.3-11.0 10^3/uL Red Blood Count 4.19 L 4.35-5.85 10^6/uL Hemoglobin 13.0 11.5-16.0 G/DL Hematocrit 37 35-52 % Mean Corpuscular Volume 89 80-99 FL Mean Corpuscular Hemoglobin 31 25-34 PG Mean Corpuscular Hemoglobin Concent 35 32-36 G/DL Red Cell Distribution Width 11.9 10.0-14.5 % Platelet Count 170 130-400 10^3/uL Mean Platelet Volume 12.4 H 7.4-10.4 FL Neutrophils (%) (Auto) 57 42-75 % Lymphocytes (%) (Auto) 32 12-44 % Monocytes (%) (Auto) 8 0-12 % Eosinophils (%) (Auto) 3 0-10 % Basophils (%) (Auto) 0 0-10 % Neutrophils # (Auto) 3.1 1.8-7.8 X 10^3 Lymphocytes # (Auto) 1.8 1.0-4.0 X 10^3 Monocytes # (Auto) 0.5 0.0-1.0 X 10^3 Eosinophils # (Auto) 0.2 0.0-0.3 10^3/uL Basophils # (Auto) 0.0 0.0-0.1 10^3/uL Human Chorionic Gonadotropin, Quant < 5 <5 MIU/ML My Orders Orders - SHELLEY SAUNDERS MD Hcg,Quantitative (02/04/17 09:15) Cbc With Automated Diff (02/04/17 09:18) Ua Culture If Indicated (02/04/17 09:18) Vital Signs/I&O Vital Sign - Last 12Hours 02/04/17 09:01 Temp 98.2 Pulse 90 Resp 16 B/P (MAP) 123/87 (99) Pulse Ox 99 O2 Delivery Room Air Capillary Refill : Less Than 3 Seconds Blood Pressure Mean: 99 Progress Note : Progress Note Seen and evaluated. Urine screen is negative. Due to the recent history of miscarriage we will evaluate for quantitative level and check urine and CBC at that time. Monitor patient. 1100: Quant is negative. This is likely menstrual periods. All of this was discussed with the patient. Discharged home with return precautions. Patient verbalize understanding instructions and agreement with plan. Departure Impression Impression: Primary Impression: Menorrhagia Qualified Codes: N92.1 - Excessive and frequent menstruation with irregular cycle Disposition: HOME, SELF-CARE Condition: Improved Departure-Patient Inst. Decision time for Depature: 11:06 Referrals: RAQUEL RAPHAEL MD (PCP/Family) Primary Care Physician Patient Instructions: Menstrual Cramps (DC) Add. Discharge Instructions: All discharge instructions reviewed with patient and/or family. Voiced understanding. You may take ibuprofen and/or Tylenol as needed for pain. Drink plenty of fluids. Follow-up with your doctor this week for recheck. Return for worse pain, fever, vomiting, weakness, breathing problems or other concerns as needed. Copy Copies To 1: RAQUEL RAPHAEL MD, TIMOTHY D MD Feb 04, 2017 09:26
[2017-02-04 09:37] LABS: BASOPHILS % (AUTO) 0 % (0-10); EOSINOPHILS # (AUTO) 0.2 10^3/uL (0.0-0.3); EOSINOPHILS % (AUTO) 3 % (0-10); LYMPHOCYTES # (AUTO) 1.8 X 10^3 (1.0-4.0); LYMPHOCYTES % (AUTO) 32 % (12-44); MEAN CORPUSCULAR HEMOGLOBIN 31 PG (25-34); MEAN CORPUSCULAR HGB CONC 35 G/DL (32-36); MEAN CORPUSCULAR VOLUME 89 FL (80-99); MEAN PLATELET VOLUME 12.4 FL (7.4-10.4); MONOCYTES # (AUTO) 0.5 X 10^3 (0.0-1.0); MONOCYTES % (AUTO) 8 % (0-12); NEUTROPHILS # (AUTO) 3.1 X 10^3 (1.8-7.8); NEUTROPHILS % (AUTO) 57 % (42-75); PLATELET COUNT 170 10^3/uL (130-400); RED BLOOD COUNT 4.19 10^6/uL (4.35-5.85); RED CELL DISTRIBUTION WIDTH 11.9 % (10.0-14.5); WHITE BLOOD COUNT 5.5 10^3/uL (4.3-11.0)
[2017-02-04 11:10] VITALS: BP 122/84
== END 2017-02-04 11:10 | disposition home or self-care (01) ==
LOC: EDUNIT# 08:44 → ER 08:46
DX: N92.0 Excessive and frequent menstruation with regular cycle (principal); Z87.440 Personal history of urinary (tract) infections; Z87.19 Personal history of other diseases of the digestive system; Z32.02 Encounter for pregnancy test, result negative
CPT/HCPCS: 36415; 81000; 84702; 85025; 99282

== ENCOUNTER → 2017-03-09 | Outpatient (CLI) | payer MEDICAID ==
--- NOTE | 2017-03-09 12:51 | Diagnostic Imaging Report ---
CLINICAL INDICATION: Patient with palpable lump to left of lower spine. EXAMINATION: Focused ultrasound of the left of spine and lower back region in the palpable area of concern. COMPARISON: None. FINDINGS AND IMPRESSION: There is no soft tissue abnormality or mass seen in the left of spine and lower back palpable area of concern. Unremarkable focused ultrasound exam. Dictated by: Dictated on workstation # [id number]
--- NOTE | 2017-03-09 13:32 | Diagnostic Imaging Report ---
INDICATION: Low back pain. Patient reports bump on back. AP and lateral views. FINDINGS: Good alignment of the vertebral bodies. Body heights and disc spaces are well maintained. Facets show good alignment. There is no evidence of pars defect. Pedicles are intact. SI joints are symmetrical. Transverse processes are normal. There are no bony lesions demonstrated. No soft tissue lesions are seen over the back. IMPRESSION: Normal lumbar spine. Dictated by: Dictated on workstation # [id number]
== END ==
LOC: RAD 11:20
PROVIDERS: ATTEND Family Medicine
DX: R22.2 Localized swelling, mass and lump, trunk (principal); M54.5 Low back pain
CPT/HCPCS: 72100; 76536

== ENCOUNTER → 2017-04-18 | Outpatient (CLI) | payer MEDICAID ==
--- NOTE | 2017-04-18 10:33 | Diagnostic Imaging Report ---
INDICATION: Pelvic pain. FINDINGS: There is an intrauterine gestational sac containing a pole. The crown rump length measurement is 2 mm consistent with 5 week 6 day gestation. heart rate was recorded at 100 beats per minute. No yasmin-gestational sac hemorrhage is detected. Yolk sac is visualized. Adnexal evaluation demonstrates the right ovary to be unremarkable. The left ovary does contain a 1.7 cm cyst. Minimal free fluid is identified. IMPRESSION: 1. Single live IUP approximately 5 weeks 6 days gestation. The estimated date of confinement sonographically is 12/13/2017. 2. A 1.7 cm left ovarian cyst. Dictated by: Dictated on workstation # [id number]
== END ==
LOC: RAD 09:04
PROVIDERS: ATTEND Family Medicine
DX: O34.82 Maternal care for other abnormalities of pelvic organs, second trimester (principal); N83.202 Unspecified ovarian cyst, left side; Z3A.01 Less than 8 weeks gestation of pregnancy
CPT/HCPCS: 36415; 76817; 84702

== ENCOUNTER → 2017-05-23 | Outpatient (CLI) | payer MEDICAID ==
--- NOTE | 2017-05-23 11:36 | Diagnostic Imaging Report ---
PROCEDURE: US OB SINGLE FETUS <14 WKS. TECHNIQUE: Multiple real-time grayscale images were obtained over the gravid uterus in various projections. INDICATION: Cramping Comparison: 04/18/2007 Findings: There is a single live intrauterine gestation demonstrated. [place]-rump length measures about 4.7 cm which corresponds to an estimated gestational age of 11 weeks 4 days. cardiac activity is detected with a heart rate of 167 beats per minute. No focal abnormality is suspected. The ovaries are not identified. There is no free fluid. IMPRESSION: Single live intrauterine gestation with estimated gestational age of 11 weeks 4 days based on today's ultrasound. heart rate is 167 beats per minute. No acute abnormality is suspected. Dictated by: Dictated on workstation # [id number]
== END ==
LOC: RAD 09:56
PROVIDERS: ATTEND Family Medicine
DX: O99.89 Other specified diseases and conditions complicating pregnancy, childbirth and the puerperium (principal); R10.9 Unspecified abdominal pain; Z3A.11 11 weeks gestation of pregnancy
CPT/HCPCS: 76801

== ENCOUNTER → 2017-07-16 | Outpatient (CLI) | payer MEDICAID ==
--- NOTE | 2017-07-16 13:17 | Diagnostic Imaging Report ---
INDICATION: anatomy survey. TECHNIQUE: Multiple real-time grayscale images were obtained over the gravid uterus. COMPARISON: ultrasound from 05/23/2017. FINDINGS: There is a single live intrauterine . The placenta is posteriorly located and is within 2 cm of the internal cervical os. No evidence of placental abruption. Due to advanced gestational age, the maternal adnexa are suboptimally seen. anatomy survey was performed and the following structures are visualized and normal: Four-chamber heart, urinary bladder, umbilical cord insertion, kidneys, spine cerebral ventricles, cisterna magna, cerebellum, and stomach. Biometrical measurements are as follows: Biparietal 4.32 cm, age 19 weeks 1 days. Head circumference 15.80 cm, age 18 weeks 5 days. Abdominal circumference 12.94 cm, age 18 weeks 4 days. Femur length 2.80 cm, age 18 weeks 4 days. Sonographic estimate age: 18 weeks 6 days. Sonographic estimated date of delivery: 12/11/17. Estimated Weight: 246 gm (+/- 36 gm). LMP percentile: 44%. heart rate: 142 beats per minute. number: 1 of 1. IMPRESSION: 1. Single live intrauterine with normal anatomy survey. 2. Low-lying marginal placenta. Consider followup ultrasound to assess for resolution. Dictated by: Dictated on workstation # [id number]
== END ==
LOC: RAD 09:34
PROVIDERS: ATTEND Family Medicine
DX: Z36.89 Encounter for other specified antenatal screening (principal); O44.42 Low lying placenta NOS or without hemorrhage, second trimester; Z3A.18 18 weeks gestation of pregnancy
CPT/HCPCS: 76805

== ENCOUNTER 2017-10-04 19:30 | Outpatient (CLI) | payer MEDICAID ==
[~2017-10-04] VITALS: Ht 152.4 cm; Wt 59.5 kg
[2017-10-04 20:17] LABS: BILIRUBIN,URINE NEGATIVE (NEGATIVE); CLARITY,URINE CLEAR; COLOR,URINE YELLOW; GLUCOSE, URINE (UA) 1+ (NEGATIVE); KETONES,URINE NEGATIVE (NEGATIVE); LEUKOCYTE ESTERASE ,URINE 1+ (NEGATIVE); NITRITE,URINE NEGATIVE (NEGATIVE); PH,URINE 6 (5-9); PROTEIN,URINE NEGATIVE (NEGATIVE); UROBILINOGEN,URINE 1 MG/DL (NORMAL)
[2017-10-04] MEDS ORDERED: PREN-53 PO (20:18)
[2017-10-04 20:25] LABS: BACTERIA,URINE FEW /HPF; RBC,URINE RARE /HPF; WBC,URINE RARE /HPF
--- NOTE | 2017-10-05 13:49 | Physician Query-Final Dx ---
MARIELA ALVAREZ 10/05/17 1349: Clinic Account Progress/Dx Physician Query: Please give diagnosis Date of Service Oct 04, 2017 at 19:30 RAQUEL RAPHAEL MD 10/05/17 1508: Clinic Account Progress/Dx DIAGNOSIS: Diagnosis 1. IUP at 30 weeks with uterine cramping, non-labor 2. Membranes intact MARIELA ALVAREZ Oct 05, 2017 13:49 RAQUEL RAPHAEL MD Oct 05, 2017 15:08
== END 2017-10-04 20:55 | disposition home or self-care (01) ==
LOC: WSo 19:30 → LDRP 19:35 → WSo 20:55
PROVIDERS: ATTEND Family Medicine
DX: O99.89 Other specified diseases and conditions complicating pregnancy, childbirth and the puerperium (principal); N94.89 Other specified conditions associated with female genital organs and menstrual cycle; Z3A.30 30 weeks gestation of pregnancy
CPT/HCPCS: 81000; 99213

== ENCOUNTER 2017-10-07 19:05 | Emergency (ER) | payer MEDICAID ==
[~2017-10-07] VITALS: Ht 157.5 cm; Wt 59.4 kg
[~2017-10-07 19:05] MED LIST changes: +PREN-53 PO
--- NOTE | 2017-10-07 19:45 | ED Upper Extremity ---
General Chief Complaint: Upper Extremity Stated Complaint: FINGER INFECTION Nursing Triage Note: pt states rt thumb pain/swelling. unknown injury. pt verbalized "feels like something is in it" states bounding pulse in thumb. Nursing Sepsis Screen: No Definite Risk Source: patient Exam Limitations: no limitations History of Present Illness Date Seen by Provider: Oct 07, 2017 Time Seen by Provider: 19:40 Initial Comments Patient is a 21-year-old female who presents to the emergency room with infection to her right thumb. She has a reddened area of soft tissue along her nail bed. She reports pain and swelling. She is 31 weeks . Onset: last week Pain/Injury Location: right thumb Allergies and Home Medications Allergies Coded Allergies: Iodinated Contrast- Oral and IV Dye (Unverified Allergy, Severe, ANAPHYLAXIS, 06/24/13) erythromycin base (Unverified Allergy, Severe, ANAPHYLAXIS, 06/24/13) morphine (Verified Allergy, Intermediate, NAUSEA, 06/24/13) Home Medications Cephalexin 500 Mg Capsule, 500 MG PO BID Prescribed by: APOLINAR MORGAN on 10/07/17 1950 [id number]/Iron Fumarate/FA/Dss 1 Each Tablet, 1 EACH PO DAILY, (Reported) Patient Home Medication List Home Medication List Reviewed: Yes Constitutional: see HPI; No chills, No fever : Yes Expected Date of Delivery: Dec 13, 2017 Skin: see HPI, change in hair/nails (redness to the nailbed along the right thumb.) All Other Systems Reviewed Negative Unless Noted: Yes Past Tgvykon-Ykdvuh-Pealmy Hx Past Med/Social Hx: Reviewed Nursing Past Med/Soc Hx Patient Social History 2nd Hand Smoke Exposure: No Recent Foreign Travel: No Contact w/Someone Who Travel: No Recent Infectious Disease Expo: No Recent Hopitalizations: No Immunizations Up To Date Tetanus Booster (TDap): Unknown PED Vaccines UTD: No Seasonal Allergies Seasonal Allergies: Yes Past Medical History Surgeries: Yes (2002 eye surgery FOR TRAUMA--DOES NOT REMEBER WHICH EYE ) Eye Surgery Respiratory: Yes Asthma Cardiac: No Neurological: No Reproductive Disorders: No Female Reproductive Disorders: Menstrual Problems, Ovarian Cyst Sexually Transmitted Disease: No Genitourinary: Yes UTI-Chronic Gastrointestinal: Yes Chronic Constipation Musculoskeletal: No Endocrine: No HEENT: No Loss of Vision: Right Cancer: No Psychosocial: No Integumentary: No Blood Disorders: No Adverse Reaction/Blood Tranf: No Family Medical History Reviewed Nursing Family Hx Asthma 19 MOTHER G8 SISTER Diabetes mellitus 19 MOTHER Hypertension 19 FATHER 19 MOTHER Thyroid disease 19 MOTHER No Family History of: AIDS Abdominal aortic aneurysm Newcomb's disease Alcoholism Alzheimer's disease Aphasia Arthritis Cancer of mouth Cardiovascular disease Cataracts Colon cancer Completed stroke Congenital disease Congenital heart disease Coronary thrombosis Cystic fibrosis Deafness or hearing loss Dementia Drug abuse Dysphasia Fibrocystic disease of breast Gastroenteritis Glaucoma Headache disorder Hypercholesterolemia Infertility Kidney disease Myocardial infarction Neoplasm Not obtainable due to adoption Osteoporosis Parkinson's disease Prostate cancer Psychosocial problem Respiratory disorder Seizure disorder Severe allergy Tuberculosis Visual disorder Physical Exam Vital Signs Vital Signs - First Documented 10/07/17 10/07/17 19:25 19:58 Temp 97.9 Pulse 99 Resp 20 B/P (MAP) 115/70 (85) Pulse Ox 99 O2 Delivery Room Air Capillary Refill : Less Than 3 Seconds Height, Weight, BMI Height: 5'2.00" Weight: 131lbs. 2.0oz. [id number]; 25.6 BMI Method:Estimated General Appearance: WD/WN, no apparent distress Cardiovascular: regular rate, rhythm, no edema, no gallop, no JVD, no murmur Respiratory: chest non-tender, lungs clear, normal breath sounds, no respiratory distress, no accessory muscle use Hand: Right (thumb), infection (Paronychia to the right thumb nail. No drainage.) Neurologic/Psychiatric: alert, normal mood/affect, oriented x 3 Skin: normal color, warm/dry Lymphatic: no adenopathy Progress/Results/Core Measures Results/Orders My Orders Medications Given in ED Vital Signs/I&O Blood Pressure Mean: 85 Progress Progress Note : Progress Note The patient's skin infection around the nail I have selected Keflex due to her and no recent antibiotic usage. She is to follow up with her primary care doctor within 1 week for recheck. Return precautions were given. She agrees with plan of care and discharged Departure Impression Primary Impression: Paronychia Disposition: 01 HOME, SELF-CARE Condition: Stable/Unchanged Departure-Patient Inst. Decision time for Depature: 19:43 Referrals: RAQUEL RAPHAEL MD (PCP/Family) Primary Care Physician Patient Instructions: Paronychia (DC) Add. Discharge Instructions: Take medication as directed. Follow up with your doctor within 1 week for recheck. Return back to the emergency room for any concerns as needed. All discharge instructions reviewed with patient and/or family. Voiced understanding. Scripts Cephalexin (Keflex) 500 Mg Capsule 500 MG PO BID for 7 Days, #14 CAP Prov: APOLINAR MORGAN 10/07/17 APOLINAR MORGAN Oct 07, 2017 19:45
[2017-10-07] MEDS ORDERED: CEPH-507 PO (19:50)
[2017-10-07] MEDS ORDERED: CEPHALEXIN 250 MG (KEFLEX) CAP PO ONE (19:54)
[2017-10-07 19:58] VITALS: BP 115/70
== END 2017-10-07 19:54 | disposition home or self-care (01) ==
LOC: EDUNIT# 19:05 → ER 19:06
DX: O99.712 Diseases of the skin and subcutaneous tissue complicating pregnancy, second trimester (principal); L03.031 Cellulitis of right toe; O99.512 Diseases of the respiratory system complicating pregnancy, second trimester; J45.909 Unspecified asthma, uncomplicated; Z91.041 Radiographic dye allergy status; Z87.448 Personal history of other diseases of urinary system; Z87.19 Personal history of other diseases of the digestive system; Z88.0 Allergy status to penicillin; Z88.5 Allergy status to narcotic agent; Z3A.21 21 weeks gestation of pregnancy
CPT/HCPCS: 99282

== ENCOUNTER → 2017-10-16 | Outpatient (CLI) | payer MEDICAID ==
--- NOTE | 2017-10-16 12:26 | Diagnostic Imaging Report ---
INDICATION: Follow-up marginal placenta previa. Correlation is made with prior ultrasound from 07/16/2017. FINDINGS: There is a single live fetus in a cephalic presentation. heart rate was recorded at 150 beats per minute. Cervical length is 4.6 cm. Placenta is to the left. The placenta is no longer in a low lying or marginal location. No previa is seen. The amniotic fluid volume appears normal. IMPRESSION: Unremarkable limited obstetrical ultrasound. No placenta previa is identified. Dictated by: Dictated on workstation # [id number]
== END ==
LOC: RAD 09:44
PROVIDERS: ATTEND Family Medicine
DX: O44.03 Complete placenta previa NOS or without hemorrhage, third trimester (principal); Z3A.36 36 weeks gestation of pregnancy
CPT/HCPCS: 76815

== ENCOUNTER 2017-12-06 05:26 | Inpatient (IN) | payer MEDICAID ==
[~2017-12-06] VITALS: Ht 152.4 cm; Wt 66.1 kg
[2017-12-06] VITALS (62 sets, daily range): BP systolic 87–146; BP diastolic 43–90
[~2017-12-06 05:26] MED LIST changes: -OXYC-202 PO; +OXYC1TAB12 PO
[2017-12-06] MEDS ORDERED: MINERAL OIL CONCENTRATE 99.9% 15 ML UDC TOP PRN (05:45)
[2017-12-06] MEDS ORDERED: CATHETER FLUSH 10 ML SYR IV SCH ×2 (06:00→22:00)
[2017-12-06 06:10] LABS: BASOPHILS % (AUTO) 0 % (0-10); EOSINOPHILS # (AUTO) 0.4 10^3/uL (0.0-0.3); EOSINOPHILS % (AUTO) 4 % (0-10); HEMATOCRIT 31 % (35-52); HEMOGLOBIN 11.1 G/DL (11.5-16.0); LYMPHOCYTES # (AUTO) 1.6 X 10^3 (1.0-4.0); LYMPHOCYTES % (AUTO) 20 % (12-44); MEAN CORPUSCULAR HEMOGLOBIN 32 PG (25-34); MEAN CORPUSCULAR HGB CONC 36 G/DL (32-36); MEAN CORPUSCULAR VOLUME 91 FL (80-99); MEAN PLATELET VOLUME 11.1 FL (7.4-10.4); MONOCYTES # (AUTO) 0.6 X 10^3 (0.0-1.0); MONOCYTES % (AUTO) 7 % (0-12); NEUTROPHILS # (AUTO) 5.6 X 10^3 (1.8-7.8); NEUTROPHILS % (AUTO) 68 % (42-75); PLATELET COUNT 177 10^3/uL (130-400); RED BLOOD COUNT 3.44 10^6/uL (4.35-5.85); RED CELL DISTRIBUTION WIDTH 13.2 % (10.0-14.5); WHITE BLOOD COUNT 8.2 10^3/uL (4.3-11.0)
[2017-12-06] MEDS ORDERED: CATHETER FLUSH 10 ML SYR IV PRN ×3 (06:45→20:15)
[2017-12-06 06:57] LABS: BILIRUBIN,URINE NEGATIVE (NEGATIVE); CLARITY,URINE SLIGHTLY CLOUDY; COLOR,URINE YELLOW; GLUCOSE, URINE (UA) NEGATIVE (NEGATIVE); KETONES,URINE NEGATIVE (NEGATIVE); LEUKOCYTE ESTERASE ,URINE 3+ (NEGATIVE); NITRITE,URINE NEGATIVE (NEGATIVE); PH,URINE 6 (5-9); PROTEIN,URINE NEGATIVE (NEGATIVE); UROBILINOGEN,URINE NORMAL (NORMAL)
--- NOTE | 2017-12-06 07:06 | History & Physical-OB ---
OB - Chief Complaint & HPI Date/Time Date of Admission: Date of Admission: Dec 06, 2017 at 05:26 Date seen by a Provider: Dec 06, 2017 Time Seen by a Provider: 07:00 Chief Complaint/History OB-Reason for Admission/Chief: Induction of Labor Hx : 3 Hx Para: 1 Expected Date of Delivery: Dec 13, 2017 Gestational Age in Weeks: 39 Gestational Age in Days: 0 Admission Nurse Assessment Rev: Yes History of Labs GBS negative Allergies and Home Medications Allergies Coded Allergies: Iodinated Contrast- Oral and IV Dye (Unverified Allergy, Severe, ANAPHYLAXIS, 06/24/13) erythromycin base (Unverified Allergy, Severe, ANAPHYLAXIS, 06/24/13) morphine (Verified Allergy, Intermediate, NAUSEA, 06/24/13) Home Medications [id number]/Iron Fumarate/FA/Dss 1 Each Tablet, 1 EACH PO DAILY, (Reported) Patient Home Medication List Home Medication List Reviewed: Yes OB - History Hx of Present Care: Yes Ultrasounds: Normal mid trimester US Obstetrical Complications: None Medical Complications: None Delivery History Hx Blood Disorders: No Adverse Rxn to Tranfusion: No Patient Past Medical History No chronic medical problems Social History/Family History HIV/AIDS: No Recent Infectious Disease Expo: No Sexually Transmitted Disease: No Alcohol Use: Denies Use Recreational Drug Use: No 2nd Hand Smoke Exposure: No Immunizations Hepatitis A: No Hepatitis B: No Tetanus Booster (TDap): Unknown OB - Admission Exam Physical Exam Vitals: Vital Signs 12/06/17 12/06/17 05:45 06:30 Temp 98.2 Pulse 100 Resp 18 B/P (MAP) 106/63 (77) HEENT: Moist Membranes Heart: Rhythm Normal Lungs: Clear Abdomen: Gravid Extremities: Normal Cervical Dilatation: 1cm Effacement: 50% Membranes: Intact Heart Rate: 140's Accelerations: Accelerations Present Decelerations: No Decelerations Short Term Variability: Present Alf Variability: Average (6-25) Contractions on Admission: >10 Minutes Apart Intensity: Mild Montez Scoring Tool (Modified) Dilation (cm): 1-2cm (1) Effacement (%): 31-51% (1) Descent/Station: -3 (0) Cervix Consistency: Medium(1) Cervix Position: Middle/Mid-Position (1) Add 1 point for: Each previous vaginal delivery (1) Montez Score: 5 Labs Laboratory Tests Test 12/06/17 05:35 12/06/17 05:55 Range/Units White Blood Count 8.2 4.3-11.0 10^3/uL Red Blood Count 3.44 L 4.35-5.85 10^6/uL Hemoglobin 11.1 L 11.5-16.0 G/DL Hematocrit 31 L 35-52 % Mean Corpuscular Volume 91 80-99 FL Mean Corpuscular Hemoglobin 32 25-34 PG Mean Corpuscular Hemoglobin Concent 36 32-36 G/DL Red Cell Distribution Width 13.2 10.0-14.5 % Platelet Count 177 130-400 10^3/uL Mean Platelet Volume 11.1 H 7.4-10.4 FL Neutrophils (%) (Auto) 68 42-75 % Lymphocytes (%) (Auto) 20 12-44 % Monocytes (%) (Auto) 7 0-12 % Eosinophils (%) (Auto) 4 0-10 % Basophils (%) (Auto) 0 0-10 % Neutrophils # (Auto) 5.6 1.8-7.8 X 10^3 Lymphocytes # (Auto) 1.6 1.0-4.0 X 10^3 Monocytes # (Auto) 0.6 0.0-1.0 X 10^3 Eosinophils # (Auto) 0.4 H 0.0-0.3 10^3/uL Basophils # (Auto) 0.0 0.0-0.1 10^3/uL OB - Assessment/Plan/Diagnosis Assessment Assessment: induction of labor Admission Dx 1. IUP at 39 weeks gestation Admission Status: Inpatient Order (span 2 midnights) Reason for Inpatient Admission: Induction of labor Plan Plan: Induction Induction Method: AROM Other Plan -epidural -pitocin as necessary RAQUEL RAPHAEL MD Dec 06, 2017 07:06
[2017-12-06 07:08] LABS: BACTERIA,URINE FEW /HPF
[2017-12-06] MEDS: D5 LR IV SOLUTION 1,000 ML IV SCH ×2 (07:35→13:10)
[2017-12-06] MEDS ORDERED: SUFENTA 0.6MCG/ML BUPIVA 0.125 100 ML ONE ×2 (08:13→15:08)
[2017-12-06] MEDS ORDERED: OXYTOCIN/NORMAL SALINE 500 ML IV SCH ×2 (08:27→20:46)
[2017-12-06] MEDS ORDERED: fentaNYL INJECTION 100 MCG/2 ML AMP ONE ×2 (08:50→20:17)
[2017-12-06] MEDS ORDERED: PHENYLEPHRINE 100 MCG/ML 10 ML (ANESTHESIA) SYR ONE ×2 (09:25→21:10)
[2017-12-06] MEDS ORDERED: FLU QUADRIvalent (5+ YOA) 2018-2019 (AFLURIA) 0.5 ML IM ONE (10:30)
[2017-12-06] MEDS ORDERED: RT-ALBUTEROL SULF 2.5 MG/3 ML PRE-MIX VIAL ONE (13:15)
[2017-12-06] MEDS ORDERED: RT-ALBUTEROL/IPRATROPIUM 3 ML (DUONEB) VIAL INH ONE ×2 (13:30→19:45)
[2017-12-06] MEDS ORDERED: LACTATED RINGERS 1,000 ML IV ONE (15:12)
[2017-12-06] MEDS ORDERED: EPIDURAL (SUFENTA 0.6MCG/ML BUPIVA 0.125%) 100 ML BAG EPI SCH (15:15)
[2017-12-06] MEDS ORDERED: NALOXONE 0.4 MG/ML 1 ML (NARCAN) VIAL IV PRN (15:15)
[2017-12-06] MEDS ORDERED: CITRIC ACID/SOB CIT (BICITRA) 30 ML UDC ONE (20:10)
[2017-12-06] MEDS ORDERED: METOCLOPRAMIDE INJ 10 MG/2 ML (REGLAN) ONE (20:10)
[2017-12-06] MEDS ORDERED: FAMOTIDINE 20MG/2ML IV (PEPCID) ONE (20:11)
--- NOTE | 2017-12-06 20:14 | Progress Note (SOAP) ---
Subjective Date Seen by a Provider: Dec 06, 2017 Time Seen by a Provider: 20:10 Subjective/Events-last exam Patient in pain due to labor despite epidural. She is at 7cm dilated and has halted progress over the past 5 hours. Adequate contractions with pitocin. Objective Exam Vital Signs Date Time Temp Pulse Resp B/P (MAP) Pulse Ox O2 Delivery O2 Flow Rate FiO2 12/06/17 19:47 100 Room Air 12/06/17 18:55 86 20 112/57 (75) 100 Room Air 12/06/17 18:40 96 20 121/77 (92) 100 Room Air 12/06/17 18:25 83 20 117/66 (83) 99 Room Air 12/06/17 18:10 86 20 113/65 (81) 99 Room Air 12/06/17 17:55 95 20 124/60 (81) 100 Room Air 12/06/17 17:40 98.5 88 20 123/79 (94) 100 Room Air 12/06/17 17:25 80 20 123/75 (91) 100 Room Air 12/06/17 17:10 85 20 137/80 (99) 100 Room Air 12/06/17 16:43 89 20 104/58 (73) 100 Room Air 12/06/17 16:25 79 20 100/56 (71) 100 Room Air 12/06/17 16:10 93 20 101/59 (73) 100 Room Air 12/06/17 15:55 98.3 78 20 90/53 (65) 99 Room Air 12/06/17 15:40 92 20 102/62 (75) 100 Room Air 12/06/17 15:25 80 20 109/66 (80) 99 Room Air 12/06/17 15:10 77 20 116/70 (85) 100 Room Air 12/06/17 14:55 95 20 104/68 (80) 100 Room Air 12/06/17 14:45 86 20 103/57 (72) 100 Room Air 12/06/17 14:30 86 20 98/57 (71) 100 Room Air 12/06/17 14:15 85 20 104/57 (73) 98 Room Air 12/06/17 14:00 82 20 99/55 (70) 100 Room Air 12/06/17 13:45 110 20 99/63 (75) 100 Room Air 12/06/17 13:30 80 20 95/54 (68) 100 Room Air 12/06/17 13:29 100 Room Air 12/06/17 13:15 81 20 99/61 (74) 100 Room Air 12/06/17 12:55 93 20 96/51 (66) 100 Room Air 12/06/17 12:35 77 20 104/49 (67) 100 Room Air 12/06/17 12:20 81 20 146/72 (96) 100 Room Air 12/06/17 12:05 83 20 120/57 (78) 100 Room Air 12/06/17 11:45 88 18 110/67 (81) 99 Room Air 12/06/17 11:30 81 18 108/58 (75) 100 Room Air 12/06/17 11:15 93 18 110/66 (81) 92 Room Air 12/06/17 11:00 82 18 103/59 (74) 100 Room Air 12/06/17 10:45 87 18 96/59 (71) 100 Room Air 12/06/17 10:30 91 18 105/56 (72) 98 Room Air 12/06/17 10:15 108 18 110/59 (76) 98 Room Air 12/06/17 10:05 81 18 114/63 (80) 98 Room Air 12/06/17 10:00 93 18 114/67 (83) 99 Room Air 12/06/17 09:55 87 18 121/72 (88) 99 Room Air 12/06/17 09:50 80 18 118/73 (88) 99 Room Air 12/06/17 09:45 90 16 122/67 (85) 100 Room Air 12/06/17 09:40 88 16 111/61 (78) 99 Room Air 12/06/17 09:35 81 18 106/59 (75) 100 Room Air 12/06/17 09:30 57 20 96/52 (67) 99 Room Air 12/06/17 09:27 57 20 87/43 (58) 100 Room Air 12/06/17 09:25 117 20 117/58 (77) 99 Room Air 12/06/17 09:20 108 20 113/69 (84) 100 Room Air 12/06/17 09:15 99 20 126/74 (91) 100 Room Air 12/06/17 09:10 94 20 129/76 (93) 100 Room Air 12/06/17 09:05 96 20 134/90 (105) 100 Room Air 12/06/17 09:00 93 20 123/84 (97) 100 Room Air 12/06/17 08:30 86 20 115/69 (84) 12/06/17 08:00 87 18 117/68 (84) 12/06/17 07:30 98.9 99 18 110/65 (80) 12/06/17 07:00 90 18 111/68 (82) 12/06/17 06:30 100 18 106/63 (77) 12/06/17 05:45 98.2 101 18 121/75 (90) Capillary Refill : General Appearance: Moderate Distress Other comments Cervix at 7cm, 70-80% effaced, -2 station ( unchanged over 5 hours) Results Lab Laboratory Tests 12/06/17 05:35: Urine Color YELLOW, Urine Clarity SLIGHTLY CLOUDY, Urine pH 6, Urine Specific [place] 1.015L, Urine Protein NEGATIVE, Urine Glucose (UA) NEGATIVE, Urine Ketones NEGATIVE, Urine Nitrite NEGATIVE, Urine Bilirubin NEGATIVE, Urine Urobilinogen NORMAL, Urine Leukocyte Esterase 3+H, Urine RBC (Auto) NEGATIVE, Urine RBC NONE, Urine WBC 5-10H, Urine Squamous Epithelial Cells 5-10, Urine Crystals NONE, Urine Bacteria FEWH, Urine Casts NONE, Urine Mucus NEGATIVE, Urine Culture Indicated YES 12/06/17 05:55: White Blood Count 8.2, Red Blood Count 3.44L, Hemoglobin 11.1L, Hematocrit 31L, Mean Corpuscular Volume 91, Mean Corpuscular Hemoglobin 32, Mean Corpuscular Hemoglobin Concent 36, Red Cell Distribution Width 13.2, Platelet Count 177, Mean Platelet Volume 11.1H, Neutrophils (%) (Auto) 68, Lymphocytes (%) (Auto) 20 , Monocytes (%) (Auto) 7, Eosinophils (%) (Auto) 4, Basophils (%) (Auto) 0, Neutrophils # (Auto) 5.6, Lymphocytes # (Auto) 1.6, Monocytes # (Auto) 0.6, Eosinophils # (Auto) 0.4H, Basophils # (Auto) 0.0 Microbiology 12/06/17 Urine Culture - Preliminary, Resulted Sent To [facility] Assessment/Plan Assessment/Plan Assess & Plan/Chief Complaint 1. IUP at 39weeks gestation -halted progression of labor despite adequate trial -have discussed with family and patient the need to proceed with primary LTCS. -Dr Ferrer and surgery crew have been notified Clinical Quality Measures DVT/VTE Risk/Contraindication: Risk Factor Score Per Nursin RFS Level Per Nursing on Admit: 1=Low/No VTE PPX RAQUEL RAPHAEL MD Dec 06, 2017 20:14
[2017-12-06] MEDS ORDERED: FAMOTIDINE 20MG/2ML IV (PEPCID) IV ONE (20:15)
[2017-12-06] MEDS ORDERED: CITRIC ACID/SOB CIT (BICITRA) 30 ML UDC PO ONE (20:15)
[2017-12-06] MEDS ORDERED: METOCLOPRAMIDE INJ 10 MG/2 ML (REGLAN) IV ONE (20:15)
[2017-12-06] MEDS ORDERED: LIDOCAINE PF 2% 5 ML (XYLOCAINE) VIAL ONE ×2 (20:17→21:09)
[2017-12-06] MEDS ORDERED: ceFAZolin 2 GM IV Premixed 50 ML IV ONE (20:30)
--- NOTE | 2017-12-06 20:46 | Progress Note-Standard ---
Standard Progress Note Progress Notes/Assess & Plan Date Seen by a Provider: Dec 06, 2017 Time Seen by a Provider: 20:35 Progress/Assessment & Plan I was called by Dr. Vera on this patient for section due to failure to progress. She was admitted for induction of labor at 39 weeks with a favorable cervix. Arom and Pitocin augmentation was utilized adequately, however no change in cervical dilatation for almost 5 hours she made it to 7 cm dilatation. Risk of reviewed, all questions answer from her and her mother. BRENTON AMEZCUA DO Dec 06, 2017 8:46 pm
--- NOTE | 2017-12-06 20:48 | Discharge Inst-Women's Service ---
Discharge Inst-Women's Serv Depart Medication/Instructions New, Converted or Re-Newed RX: RX on Chart Final Diagnosis POD 2 PLTCS Consults/Follow Up Additional Follow Up: Yes Orders/Referrals Dr. Ferrer in 7-[address] Vera in 6 weeks Activity Activity: Activity as Tolerated Driving Instructions: No Driving for 1 Week NO SMOKING: NO SMOKING Nothing Inside Vagina: No Douching, No [place], No Tampons Diet Discharge Diet: No Restrictions Symptoms to Report to : Bleeding Excessive, Pain Increased, Fever Over 101 Degrees F, Vaginal Bleeding Increase, Questions/Concerns For Any Problems or Questions: Contact Your Physician Skin/Wound Care Infection Signs and Symptoms: Increased Redness, Foul Odor of Wound, Increased Drainage, Skin Itchy or Has a Rash, Increased Swelling, Temperature Above 101 F Operative Area Clean and Dry: Keep Incision Clean/Dry Stitches/La/Dermabond: Dermabond, Care of Stitches Bathing Instructions: BRENTON Greer DO Dec 06, 2017 8:48 pm
[2017-12-06] MEDS ORDERED: DEXAMETHASONE 10 MG/ML (DECADRON) 1 ML VIAL ONE (20:49)
[2017-12-06] MEDS ORDERED: DOCU100C37 PO (20:50)
[2017-12-06] MEDS ORDERED: ACHD5005 PO (20:50)
[2017-12-06] MEDS ORDERED: IBUP-844 PO (20:50)
[2017-12-06] MEDS ORDERED: HYDROmorphone 2 MG/ML VIAL (DILAUDID) IV PRN (21:00)
[2017-12-06] MEDS ORDERED: TETANUS,DIPTH,PERTUSS P/F (BOOSTRIX) 0.5 ML VIAL IM SCH (21:00)
[2017-12-06] MEDS ORDERED: ONDANSETRON 4 MG/2 ML (SDV) Z0FRAN IVP PRN (21:00)
[2017-12-06] MEDS ORDERED: MEASLES,MUMPS,RUBELLA 1 EA INJ SC SCH (21:00)
[2017-12-06] MEDS ORDERED: METHYLERGONOVINE 0.2 MG/ML (METHERGINE) AMP ONE (21:09)
[2017-12-06] MEDS ORDERED: BUPIVACAINE 0.5% 30 ML (SENSORCAINE) VIAL ONE (21:09)
--- NOTE | 2017-12-06 22:22 | OPERATIVE REPORT ---
DATE OF SERVICE: PREOPERATIVE DIAGNOSES: 1. A 22-year-old G2, P1, at 39 weeks' gestation. 2. Failure to progress. POSTOPERATIVE DIAGNOSES: 1. A 22-year-old G2, P1, at 39 weeks' gestation. 2. Failure to progress. 3. Nuchal cord x1. PROCEDURE: Primary low transverse section. SURGEON: Hany Amezcua DO ELECTRIC RANGE SERVICER: Dr. Amari Vera. ANESTHESIA: Epidural, which was bolused. ESTIMATED BLOOD LOSS: 700 mL. URINE OUTPUT: 100 mL clear at the end of the procedure. FLUIDS: 700 mL of lactated Ringer solution. FINDINGS: A live male , weighing 6 pounds 14 ounces, Apgars of 7 and 8, grossly normal appearing uterus, bilateral fallopian tubes and ovaries. INDICATIONS FOR PROCEDURE: This 22-year-old female is a patient who was admitted by Dr. Vera for induction of labor with a favorable cervix at 39 weeks. She progressed to 7 cm with augmentation and failed to make any change for over 5 hours despite adequate contraction patterns and adequate Pitocin augmentation. Due to failure to progress, Dr. Vera had consulted me to perform . At presentation, I discussed with the patient proceeding with . She was very uncomfortable at that point; however, I did make sure to include her mother in the conversation about the risks, benefits, alternatives. After all their questions were answered to her satisfaction, we agreed to proceed with . Consent was obtained, the patient was taken to the operating room. OPERATIVE REPORT IN DETAIL: Once in the operating room, epidural analgesia was bolused and found to be adequate. She was placed in the supine position with a leftward tilt, prepped and draped in normal sterile fashion. A timeout was performed. I then performed a Pfannenstiel skin incision with a knife and carried down to the underlying fascia using Bovie cautery. The fascial incision extended laterally using Bovie cautery. Superior aspect of the fascial incision was then grasped with Jeff clamps, tented up and dissected off the underlying rectus muscles. The inferior aspect of the fascial incision was then grasped with Jeff clamps, tented up and dissected off the underlying rectus muscles. The rectus muscle was then dissected down the midline using Peace scissors, which exposed the peritoneum, which I entered bluntly and extended using blunt traction. An Roscoe ring retractor was then placed within the peritoneal incision, which offered excellent lateral sidewall retraction. I then proceeded with making an incision to the vesicouterine peritoneum with a knife and bluntly dissecting off the lower uterine segment. I then proceeded with my myotomy until membranes were visualized, at which point I extended the uterine incision laterally and superiorly using bandage scissors. The infant was found in the vertex presentation with right occiput transverse. With gentle fundal pressure, the 's head was elevated up to the incision where it was delivered through the incision. Nares and oropharynx were bulb suctioned. A nuchal cord was reduced x1. Anterior and posterior shoulders were delivered. The infant was then brought to the operative field. The cord was doubly clamped and cut. was taken off the field by Dr. Vera for further assessment. Cord blood was collected. A 3-vessel cord with intact placenta was delivered spontaneously thereafter. IV Pitocin was initiated to facilitate uterine contraction. Uterine fundus became firmer with bimanual massage. The uterus was then exteriorized and cleared of endometrial clots and debris. I then proceeded with closing the uterine incision using 0 Vicryl suture in running locked fashion. A second layer of imbricating 0 Monocryl was placed. Excellent hemostasis was noted after doing this. I then placed the uterus back within the pelvis and copiously irrigated the pelvis using normal saline. Once again, there was no active bleeding noted from any of my dissection planes. I then placed Interceed antiadhesive over my low transverse incision. I proceeded with closing the peritoneum using 3-0 Vicryl suture in running fashion. The rectus muscle reapproximated using 3-0 Vicryl suture in interrupted fashion. The fascia was reapproximated using 0 Vicryl suture in running fashion. Subcutaneous tissue was reapproximated using 3-0 plain in an interrupted subcutaneous stitch. The skin reapproximated using 4-0 Monocryl in a running subcuticular. Dermabond was applied to incision. A sterile dressing was adhesed with white tape. The patient tolerated the procedure well and sent to recovery area in stable condition. Lap and sponge counts were correct at the end of the procedure. Instrument count was correct as well. Two grams of Ancef were given preoperatively for infection prophylaxis. Job ID: [id number] DocumentID: [id number] Dictated Date: 12/06/2017 21:35:55 Orthopedic Tech Date: 12/06/2017 22:21:11 Dictated By: HANY AMEZCUA DO
[2017-12-06] MEDS: KETOROLAC 30 MG/ML VIAL IVP SCH (22:52)
[2017-12-06] MEDS: DOCUSATE SODIUM 100 MG (COLACE) CAP PO SCH (22:53)
[2017-12-07] MEDS: HYDROcodone/APAP 5 MG/325 MG (LORTAB) TAB PO PRN ×5 (00:12→19:32)
[2017-12-07] MEDS: D5 LR IV SOLUTION 1,000 ML IV SCH (01:30)
[2017-12-07 03:35] VITALS: BP 104/59
[2017-12-07] MEDS: KETOROLAC 30 MG/ML VIAL IVP SCH ×2 (05:01→11:17)
[2017-12-07 05:15] LABS: BASOPHILS % (AUTO) 0 % (0-10); EOSINOPHILS # (AUTO) 0.1 10^3/uL (0.0-0.3); EOSINOPHILS % (AUTO) 0 % (0-10); HEMATOCRIT 30 % (35-52); HEMOGLOBIN 10.5 G/DL (11.5-16.0); LYMPHOCYTES # (AUTO) 0.7 X 10^3 (1.0-4.0); LYMPHOCYTES % (AUTO) 5 % (12-44); MEAN CORPUSCULAR HEMOGLOBIN 32 PG (25-34); MEAN CORPUSCULAR HGB CONC 35 G/DL (32-36); MEAN CORPUSCULAR VOLUME 90 FL (80-99); MEAN PLATELET VOLUME 11.1 FL (7.4-10.4); MONOCYTES # (AUTO) 0.7 X 10^3 (0.0-1.0); MONOCYTES % (AUTO) 4 % (0-12); NEUTROPHILS # (AUTO) 14.8 X 10^3 (1.8-7.8); NEUTROPHILS % (AUTO) 91 % (42-75); PLATELET COUNT 187 10^3/uL (130-400); RED BLOOD COUNT 3.33 10^6/uL (4.35-5.85); WHITE BLOOD COUNT 16.2 10^3/uL (4.3-11.0)
[2017-12-07 05:39] LABS: BAND NEUTROPHILS 1 %; LYMPHOCYTES % (MANUAL) 4 %; MONOCYTES % (MANUAL) 2 %; NEUTROPHILS % (MANUAL) 83 %
--- NOTE | 2017-12-07 07:26 | Postpartum Progress Note ---
Note Note Day # 1 Subjective: Patient is without complaints. Ambulating, voiding. Tolerating a regular diet without nausea or vomiting. Normal lochia. Pain is well controlled with oral pain medications. Objective: Vital Sign - Last 24 Hours 12/06/17 12/06/17 12/06/17 12/06/17 07:30 08:00 08:30 09:00 Temp 98.9 Pulse 99 87 86 93 Resp 18 18 20 20 B/P (MAP) 110/65 (80) 117/68 (84) 115/69 (84) 123/84 (97) Pulse Ox 100 O2 Delivery Room Air 12/06/17 12/06/17 12/06/17 12/06/17 09:05 09:10 09:15 09:20 Pulse 96 94 99 108 Resp 20 20 20 20 B/P (MAP) 134/90 (105) 129/76 (93) 126/74 (91) 113/69 (84) Pulse Ox 100 100 100 100 O2 Delivery Room Air Room Air Room Air Room Air 12/06/17 12/06/17 12/06/17 12/06/17 09:25 09:27 09:30 09:35 Pulse 117 57 57 81 Resp 20 20 20 18 B/P (MAP) 117/58 (77) 87/43 (58) 96/52 (67) 106/59 (75) Pulse Ox 99 100 99 100 O2 Delivery Room Air Room Air Room Air Room Air 12/06/17 12/06/17 12/06/17 12/06/17 09:40 09:45 09:50 09:55 Pulse 88 90 80 87 Resp 16 16 18 18 B/P (MAP) 111/61 (78) 122/67 (85) 118/73 (88) 121/72 (88) Pulse Ox 99 100 99 99 O2 Delivery Room Air Room Air Room Air Room Air 12/06/17 12/06/17 12/06/17 12/06/17 10:00 10:05 10:15 10:30 Pulse 93 81 108 91 Resp 18 18 18 18 B/P (MAP) 114/67 (83) 114/63 (80) 110/59 (76) 105/56 (72) Pulse Ox 99 98 98 98 O2 Delivery Room Air Room Air Room Air Room Air 12/06/17 12/06/17 12/06/17 12/06/17 10:45 11:00 11:15 11:30 Pulse 87 82 93 81 Resp 18 18 18 18 B/P (MAP) 96/59 (71) 103/59 (74) 110/66 (81) 108/58 (75) Pulse Ox 100 100 92 100 O2 Delivery Room Air Room Air Room Air Room Air 12/06/17 12/06/17 12/06/17 12/06/17 11:45 12:05 12:20 12:35 Pulse 88 83 81 77 Resp 18 20 20 20 B/P (MAP) 110/67 (81) 120/57 (78) 146/72 (96) 104/49 (67) Pulse Ox 99 100 100 100 O2 Delivery Room Air Room Air Room Air Room Air 12/06/17 12/06/17 12/06/17 12/06/17 12:55 13:15 13:29 13:30 Pulse 93 81 80 Resp 20 20 20 B/P (MAP) 96/51 (66) 99/61 (74) 95/54 (68) Pulse Ox 100 100 100 100 O2 Delivery Room Air Room Air Room Air Room Air 12/06/17 12/06/17 12/06/17 12/06/17 13:45 14:00 14:15 14:30 Pulse 110 82 85 86 Resp 20 20 20 20 B/P (MAP) 99/63 (75) 99/55 (70) 104/57 (73) 98/57 (71) Pulse Ox 100 100 98 100 O2 Delivery Room Air Room Air Room Air Room Air 12/06/17 12/06/17 12/06/17 12/06/17 14:45 14:55 15:10 15:25 Pulse 86 95 77 80 Resp 20 20 20 20 B/P (MAP) 103/57 (72) 104/68 (80) 116/70 (85) 109/66 (80) Pulse Ox 100 100 100 99 O2 Delivery Room Air Room Air Room Air Room Air 12/06/17 12/06/17 12/06/17 12/06/17 15:40 15:55 16:10 16:25 Temp 98.3 Pulse 92 78 93 79 Resp 20 20 20 20 B/P (MAP) 102/62 (75) 90/53 (65) 101/59 (73) 100/56 (71) Pulse Ox 100 99 100 100 O2 Delivery Room Air Room Air Room Air Room Air 12/06/17 12/06/17 12/06/17 12/06/17 16:43 17:10 17:25 17:40 Temp 98.5 Pulse 89 85 80 88 Resp 20 20 20 20 B/P (MAP) 104/58 (73) 137/80 (99) 123/75 (91) 123/79 (94) Pulse Ox 100 100 100 100 O2 Delivery Room Air Room Air Room Air Room Air 12/06/17 12/06/17 12/06/17 12/06/17 17:55 18:10 18:25 18:40 Pulse 95 86 83 96 Resp 20 20 20 20 B/P (MAP) 124/60 (81) 113/65 (81) 117/66 (83) 121/77 (92) Pulse Ox 100 99 99 100 O2 Delivery Room Air Room Air Room Air Room Air 12/06/17 12/06/17 12/06/17 12/06/17 18:55 19:10 19:25 19:47 Temp 98.2 Pulse 86 88 102 Resp 20 22 22 B/P (MAP) 112/57 (75) 108/61 (77) 116/61 (79) Pulse Ox 100 100 100 100 O2 Delivery Room Air Room Air Room Air Room Air 12/06/17 12/06/17 12/06/17 12/06/17 19:55 20:15 20:25 23:00 Temp 97.9 Pulse 117 111 111 94 Resp 24 24 24 16 B/P (MAP) 128/75 (92) 131/70 (90) 131/70 (90) 115/73 (87) Pulse Ox 100 100 100 98 O2 Delivery Room Air Room Air Room Air Room Air 12/06/17 12/07/17 12/07/17 23:30 02:34 03:35 Temp 98.9 97.1 Pulse 90 82 Resp 16 16 B/P (MAP) 115/69 (84) 104/59 (74) Pulse Ox 97 97 O2 Delivery Room Air Room Air Room Air Intake and Output 12/06/17 12/06/17 12/07/17 15:00 23:00 07:00 Intake Total 50 ml 3500 ml Output Total 225 ml 2000 ml Balance -175 ml 1500 ml Physical Exam: General - Alert and oriented, no apparent distress Abdomen - Soft, appropriately tender to palpation, non-distended, fundus firm at umbilicus Extremities - no edema, negative Hari's bilaterally Incision- c/d/i Assessment: POD 1 PLTCS Acute blood loss anemia Plan: Routine care. Encourage breast feeding. Encourage ambulation. Ferrous sulfate supplementation. Plan for discharge tomorrow Vitals - Labs Vital Signs - I&O Vital Signs Date Time Temp Pulse Resp B/P (MAP) Pulse Ox O2 Delivery O2 Flow Rate FiO2 12/07/17 03:35 97.1 82 16 104/59 (74) 97 Room Air 12/07/17 02:34 Room Air 12/06/17 23:30 98.9 90 16 115/69 (84) 97 Room Air 12/06/17 23:00 97.9 94 16 115/73 (87) 98 Room Air 12/06/17 20:25 111 24 131/70 (90) 100 Room Air 12/06/17 20:15 111 24 131/70 (90) 100 Room Air 12/06/17 19:55 117 24 128/75 (92) 100 Room Air 12/06/17 19:47 100 Room Air 12/06/17 19:25 98.2 102 22 116/61 (79) 100 Room Air 12/06/17 19:10 88 22 108/61 (77) 100 Room Air 12/06/17 18:55 86 20 112/57 (75) 100 Room Air 12/06/17 18:40 96 20 121/77 (92) 100 Room Air 12/06/17 18:25 83 20 117/66 (83) 99 Room Air 12/06/17 18:10 86 20 113/65 (81) 99 Room Air 12/06/17 17:55 95 20 124/60 (81) 100 Room Air 12/06/17 17:40 98.5 88 20 123/79 (94) 100 Room Air 12/06/17 17:25 80 20 123/75 (91) 100 Room Air 12/06/17 17:10 85 20 137/80 (99) 100 Room Air 12/06/17 16:43 89 20 104/58 (73) 100 Room Air 12/06/17 16:25 79 20 100/56 (71) 100 Room Air 12/06/17 16:10 93 20 101/59 (73) 100 Room Air 12/06/17 15:55 98.3 78 20 90/53 (65) 99 Room Air 12/06/17 15:40 92 20 102/62 (75) 100 Room Air 12/06/17 15:25 80 20 109/66 (80) 99 Room Air 12/06/17 15:10 77 20 116/70 (85) 100 Room Air 12/06/17 14:55 95 20 104/68 (80) 100 Room Air 12/06/17 14:45 86 20 103/57 (72) 100 Room Air 12/06/17 14:30 86 20 98/57 (71) 100 Room Air 12/06/17 14:15 85 20 104/57 (73) 98 Room Air 12/06/17 14:00 82 20 99/55 (70) 100 Room Air 12/06/17 13:45 110 20 99/63 (75) 100 Room Air 12/06/17 13:30 80 20 95/54 (68) 100 Room Air 12/06/17 13:29 100 Room Air 12/06/17 13:15 81 20 99/61 (74) 100 Room Air 12/06/17 12:55 93 20 96/51 (66) 100 Room Air 12/06/17 12:35 77 20 104/49 (67) 100 Room Air 12/06/17 12:20 81 20 146/72 (96) 100 Room Air 12/06/17 12:05 83 20 120/57 (78) 100 Room Air 12/06/17 11:45 88 18 110/67 (81) 99 Room Air 12/06/17 11:30 81 18 108/58 (75) 100 Room Air 12/06/17 11:15 93 18 110/66 (81) 92 Room Air 12/06/17 11:00 82 18 103/59 (74) 100 Room Air 12/06/17 10:45 87 18 96/59 (71) 100 Room Air 12/06/17 10:30 91 18 105/56 (72) 98 Room Air 12/06/17 10:15 108 18 110/59 (76) 98 Room Air 12/06/17 10:05 81 18 114/63 (80) 98 Room Air 12/06/17 10:00 93 18 114/67 (83) 99 Room Air 12/06/17 09:55 87 18 121/72 (88) 99 Room Air 12/06/17 09:50 80 18 118/73 (88) 99 Room Air 12/06/17 09:45 90 16 122/67 (85) 100 Room Air 12/06/17 09:40 88 16 111/61 (78) 99 Room Air 12/06/17 09:35 81 18 106/59 (75) 100 Room Air 12/06/17 09:30 57 20 96/52 (67) 99 Room Air 12/06/17 09:27 57 20 87/43 (58) 100 Room Air 12/06/17 09:25 117 20 117/58 (77) 99 Room Air 12/06/17 09:20 108 20 113/69 (84) 100 Room Air 12/06/17 09:15 99 20 126/74 (91) 100 Room Air 12/06/17 09:10 94 20 129/76 (93) 100 Room Air 12/06/17 09:05 96 20 134/90 (105) 100 Room Air 12/06/17 09:00 93 20 123/84 (97) 100 Room Air 12/06/17 08:30 86 20 115/69 (84) 12/06/17 08:00 87 18 117/68 (84) 12/06/17 07:30 98.9 99 18 110/65 (80) I & O 12/07/17 07:00 Intake Total 3550 ml Output Total 2225 ml Balance 1325 ml Labs Laboratory Tests 12/07/17 05:08: White Blood Count 16.2H, Red Blood Count 3.33L, Hemoglobin 10.5L, Hematocrit 30L , Mean Corpuscular Volume 90, Mean Corpuscular Hemoglobin 32, Mean Corpuscular Hemoglobin Concent 35, Red Cell Distribution Width 13.0, Platelet Count 187, Mean Platelet Volume 11.1H, Neutrophils (%) (Auto) 91H, Lymphocytes (%) (Auto) 5L, Monocytes (%) (Auto) 4, Eosinophils (%) (Auto) 0, Basophils (%) (Auto) 0, Neutrophils # (Auto) 14.8H, Lymphocytes # (Auto) 0.7L, Monocytes # (Auto) 0.7, Eosinophils # (Auto) 0.1, Basophils # (Auto) 0.0, Neutrophils % (Manual) 83, Lymphocytes % (Manual) 4, Monocytes % (Manual) 2, Band Neutrophils 1 Microbiology 12/06/17 Urine Culture - Preliminary, Resulted Sent To BRENTON Gerard DO Dec 07, 2017 7:26 am
[2017-12-07 08:52] VITALS: BP 119/76
[2017-12-07] MEDS: DOCUSATE SODIUM 100 MG (COLACE) CAP PO SCH ×2 (08:55→21:26)
[2017-12-07 11:25] VITALS: BP 95/62
--- NOTE | 2017-12-07 11:32 | Anesthesia-Regional Post-Op ---
Regional Patient Condition Mental Status: Alert, Oriented x3 Circulation: Same as Pre-Op Headache: Absent Sensation: Full Recovery Motor Block: Absent Post Op Complications Complications None Follow Up Care/Instructions Patient Instructions None needed. Anesthesia/Patient Condition Patient is doing well, no complaints, stable vital signs, no apparent adverse anesthesia problems. No complications reported per nursing. LORRIE SEGOVIA CRNA Dec 07, 2017 11:32
[2017-12-07 15:44] VITALS: BP 110/73
[2017-12-07] MEDS: IBUPROFEN 600 MG (MOTRIN) TAB PO SCH ×2 (17:32→23:00)
[2017-12-07 19:30] VITALS: BP 105/65
[2017-12-07 22:59] VITALS: BP 103/64
[2017-12-07] MEDS ORDERED: SIMETHICONE 80 MG (MYLICON) CHEW ONE (23:29)
[2017-12-07] MEDS: SIMETHICONE 80 MG (MYLICON) CHEW PO PRN (23:43)
[2017-12-08] MEDS: HYDROcodone/APAP 5 MG/325 MG (LORTAB) TAB PO PRN (02:17)
[2017-12-08] MEDS: SIMETHICONE 80 MG (MYLICON) CHEW PO PRN ×2 (02:41→08:26)
[2017-12-08 05:10] VITALS: BP 87/50
[2017-12-08] MEDS: IBUPROFEN 600 MG (MOTRIN) TAB PO SCH ×3 (05:10→18:00)
[2017-12-08] MEDS: KETOROLAC 30 MG/ML VIAL IVP SCH (06:48)
[2017-12-08 08:15] VITALS: BP 108/67
[2017-12-08] MEDS: DOCUSATE SODIUM 100 MG (COLACE) CAP PO SCH ×2 (08:26→20:36)
[2017-12-08] MEDS ORDERED: FLU QUADRIvalent (5+ YOA) 2018-2019 (AFLURIA) 0.5 ML IM ONE (08:40)
--- NOTE | 2017-12-08 10:39 | Postpartum Progress Note ---
Post Op Post-operative Day #2 s/p PLTCS, Complained of gas pains last night. Per RN has not been "motivated' to ambulate. Not out of bed often. Will hold discharge until tomorrow. Subjective: Patient is without complaints. Ambulating, voiding after adams removed. Tolerating a regular diet without nausea or vomiting. Normal lochia. Pain is well controlled with oral pain medications. Passing flatus. bottle feeding. Objective: 12/07/17 12/08/17 12/08/17 22:59 05:10 08:15 Temp 97.5 98.9 97.7 Pulse 82 82 96 Resp 18 16 18 B/P (MAP) 103/64 (77) 87/50 (62) 108/67 (81) Pulse Ox 99 96 99 O2 Delivery Room Air Room Air Room Air 12/08/17 00:00 Intake Total 1300 ml Output Total 700 ml Balance 600 ml Physical Exam: General - Alert and oriented, no apparent distress Abdomen - Soft, appropriately tender to palpation, non-distended, fundus firm at umbilicus Incision - clean, dry and intact; no erythema or induration, no drainage Extremities - no edema, negative Hari's bilaterally Assessment: 1. post-operative day # 2 status post PLTCS. Recovering well, hemodynamically stable 2. Acute blood loss anemia Plan: Routine post-operative care. Encourage breast feeding. Encourage ambulation. VTE prophylaxis: SCDs. Ferrous sulfate supplementation. Plan for discharge tomorrow Vitals - Labs Vital Signs - I&O Vital Signs Date Time Temp Pulse Resp B/P (MAP) Pulse Ox O2 Delivery O2 Flow Rate FiO2 12/08/17 08:15 97.7 96 18 108/67 (81) 99 Room Air 12/08/17 05:10 98.9 82 16 87/50 (62) 96 Room Air 12/07/17 22:59 97.5 82 18 103/64 (77) 99 Room Air 12/07/17 19:30 98.7 101 18 105/65 (78) 98 Room Air 12/07/17 15:44 97.2 105 16 110/73 (85) 97 Room Air 12/07/17 11:25 97.9 84 16 95/62 (73) 97 Room Air I & O 12/08/17 07:00 Intake Total 2200 ml Output Total 1500 ml Balance 700 ml Labs Microbiology 12/06/17 Urine Culture - Final, Complete See Comments ZIGGY BENEDICT DO Dec 08, 2017 10:39
[2017-12-08] MEDS ORDERED: SIME80TA16 PO (10:41)
[2017-12-08 14:00] VITALS: BP 107/70
[2017-12-08 17:00] VITALS: BP 108/75
[2017-12-08 20:00] VITALS: BP 106/71
[2017-12-08 22:25] VITALS: BP 110/68
== END 2017-12-08 22:25 | disposition home or self-care (01) | DRG 787 ==
LOC: LDRP 05:26
PROVIDERS: ADMIT Family Medicine; ATTEND Family Medicine
PROC: 10907ZC Drainage of Amniotic Fluid, Therapeutic from Products of Conception, Via Natural or Artificial Opening (ICD-10-PCS; 2017-12-06)
PROC: 10D00Z1 Extraction of Products of Conception, Low, Open Approach (ICD-10-PCS; principal; 2017-12-06 20:39)
DX: O62.2 Other uterine inertia (principal); O64.0XX0 Obstructed labor due to incomplete rotation of fetal head, not applicable or unspecified; O69.81X0 Labor and delivery complicated by cord around neck, without compression, not applicable or unspecified; O90.81 Anemia of the puerperium; D62 Acute posthemorrhagic anemia; Z37.0 Single live birth; Z3A.39 39 weeks gestation of pregnancy; Z23 Encounter for immunization
CPT/HCPCS: 36415; 81000; 85007; 85025; 85027; 86850; 86900; 86901; 87088; 90686; 90715; 94640; 94664

== ENCOUNTER → 2018-05-14 | Outpatient (CLI) | payer MEDICAID ==
[~2018-05-14] MED LIST changes: +ACHD5005 PO; +DOCU100C37 PO; +IBUP-844 PO; +SIME80TA16 PO
--- NOTE | 2018-05-14 12:35 | Diagnostic Imaging Report ---
PROCEDURE: US OB SINGLE FETUS <14 WKS. TECHNIQUE: Multiple real-time grayscale images were obtained over the gravid uterus in various projections. INDICATION: dating. FINDINGS: There is an intrauterine gestational sac containing a pole. Mcroberts-rump length measurement is approximately 2.7 cm consistent with 9 weeks 4 days gestation. heart rate was recorded at 183 beats per minute. No perigestational sac hemorrhage is detected. Adnexal evaluation was performed. Ovaries are not visualized due to overlying bowel gas. No adnexal mass or free fluid is seen. IMPRESSION: Single live IUP of 9 weeks and 4 days gestational age. Estimated date of confinement sonographically is 12/13/2018. Dictated by: Dictated on workstation # [id number]
== END ==
LOC: RAD 11:14
PROVIDERS: ATTEND Family Medicine
DX: Z34.91 Encounter for supervision of normal pregnancy, unspecified, first trimester (principal); Z3A.09 9 weeks gestation of pregnancy
CPT/HCPCS: 76801

== ENCOUNTER 2018-05-17 18:51 | Emergency (ER) | payer MEDICAID ==
[~2018-05-17] VITALS: Ht 147.3 cm; Wt 56.7 kg
--- OUTSIDE RECORDS SUMMARY | 2018-05-17 18:57 | XMS REPORT | Clinical Summary ---
Author Author [facility] Organization [facility] Address Unknown Phone Unavailable Care Team Providers Care Wireless Sales Expert Name Role Phone Kaycee Pennington MD Unavailable Marta Nunn MD PCP Jaquelin Infante MD Unavailable Source Comments Some departments are not documenting in the electronic medical record. If you do not see the information that you expected, contact Release of Information in the Health Information Management department at [phone] for further assistance in locating additional records.[facility] Allergies Comments Active Allergy Reactions Severity Noted Date Erythromycin SHORTNESS OF 09/17/2012 BREATH Iodinated Contrast- Oral HIVES 09/17/2012 And Iv Dye Morphine HIVES 09/17/2012 Medications End Date Status Medication Sig Dispensed Refills Start Date Active ETONOGESTREL/ETHINYL Insert or 0 ESTRADIOL ([facility]) Apply to vaginal area. Active loratadine (CLARITIN) 10 Take 10 mg by 0 mg tablet mouth daily. Active other medication Budesonide, 60 mL 6 oral viscous 3 1 mg/1 mL: Take 1 mL by mouth twice daily. Active polyethylene glycol 3350 Take 17 g by 3 Bottle 12 (GLYCOLAX; MIRALAX) 17 mouth daily. 3 gram/dose powderIndications: Constipation Active bisacodyl (DULCOLAX) 5 mg Take 2 Tabs 30 Tab 12 tabletIndications: by mouth 3 Abdominal pain, every other Constipation day as needed for Constipation. Active omeprazole DR(+) Take 1 Cap by 60 Cap 12 (PRILOSEC) 20 mg mouth twice 3 capsuleIndications: daily. Abdominal pain Active lubiprostone (AMITIZA) 24 Take 1 Cap by 60 Cap 3 01/06/201 mcg capIndications: mouth twice 3 Constipation, Abdominal daily with pain meals. Active Problems Problem Noted Date Eosinophilic esophagitis [...] Grandfather Maternal Grandmother Mother Sister Social History Date Tobacco Use Types Packs/Day Years Used Never Smoker Comments: 11.4.13 Alcohol Use Drinks/Week oz/Week Comments No Sex Assigned at Date Recorded Not on file Industry Job Start Date Occupation Not on file Not on file Not on file Travel End Travel History Travel Start No recent travel history available. Last Filed Vital Signs Time Taken Vital Sign Reading 01/22/2013 12:34 PM [employer] Blood Pressure 108/71 01/22/2013 12:34 PM [employer] Pulse 89 01/22/2013 12:34 PM [employer] Temperature 36.5 C (97.7 F) 01/22/2013 12:34 PM [employer] Respiratory Rate 16 01/22/2013 12:34 PM [employer] Oxygen Saturation 98% - Inhaled Oxygen - Concentration 01/22/2013 12:34 PM [employer] Weight 54.6 kg (120 lb 6.4 oz) 01/22/2013 12:34 PM [employer] Height 148.7 cm (4' 10.54") 01/22/2013 12:34 PM [employer] Body Mass Index 24.7 Plan of Treatment Health Maintenance Due Date Last Done Comments PHYSICAL (COMPREHENSIVE) 11/03/2002 EXAM HPV VACCINES (1 - Female 11/03/2006 3-dose series) HIV SCREENING 11/03/2010 DTAP/TDAP VACCINES (1 - 11/03/2013 Tdap) CERVICAL CANCER SCREENING 11/03/2016 INFLUENZA VACCINE 10/03/2017 MENINGOCOCCAL VACCINE Aged Out No longer eligible based (Veronica RASHEED) on patient's age to complete this topic Results Not on filefrom Last 3 Months Advance Directives Patient has advance care planning documents on file. For more information, please contact: [facility] Emiliano Ibrahima [facility] [address] [address] [place] [address]
--- OUTSIDE RECORDS SUMMARY | 2018-05-17 19:00 | XMS REPORT | Continuity of Care Document ---
Author Author [facility] Address Unknown Phone Unavailable Allergies Active Description Code Type Severity Reaction Onset Reported/Identified Relationship to Patient Clinical Status Yes erythromycin Drug Allergy N/ A N/A 06/10/2008 Yes erythromycin Drug Allergy 06/10/2008 Yes IV Dye, Iodine Containing Contrast Media Drug Allergy N/A N/A 09/07/2011 Yes morphine Drug Allergy N/A N/A 09/07/2011 Yes IV Dye, Iodine Containing Contrast Media Drug Allergy 09/07/2011 Yes morphine Drug Allergy 09/07/2011 Yes erythromycin base [id number] Drug Allergy Severe ANAPHYLAXIS 06/24/2013 Yes Iodinated Contrast Media - IV Dye [id number] Drug Allergy Severe ANAPHYLAXIS 06/24/2013 Yes Iodinated Contrast Media - Oral and [id number] Drug Allergy Severe ANAPHYLAXIS 06/24/2013 Yes Iodinated Contrast- Oral and IV Dye [id number] Drug Allergy Severe ANAPHYLAXIS 06/24/2013 Yes morphine [id number] Drug Allergy Moderate NAUSEA 06/24/2013 Medications There is no data. Problems Date Dx Coded Attending Type Code [...] CONSTIPATION CHRONIC 02/18/2008 564.00 CONSTIPATION CHRONIC 02/18/2008 ELIZABETH LARSON APRN A 564.00 CONSTIPATION CHRONIC 06/10/2008 MARIA G VILLANUEVA DO 784.0 headache 06/10/2008 MARIA G VILLANUEVA DO 787.01 nausea with vomiting 06/10/2008 784.0 headache 06/10/2008 787.01 nausea with vomiting 06/10/2008 TRISTIN RODRIGUEZ APRN R 784.0 headache 06/10/2008 TRISTIN RODRIGUEZ APRN R 787.01 nausea with vomiting 06/10/2008 784.0 headache [...] A: BETA HEMOLYTIC 06/15/2008 TRISTIN RODRIGUEZ APRN R 789.00 abdominal pain 06/15/2008 034.0 PHARYNGITIS STREPTOCOCCUS, [...] JOINT, LOWER LEG 08/27/2009 719.46 PAIN IN JOINT , LOWER LEG 08/27/2009 TRISTIN RODRIGUEZ APRN R 719.46 PAIN IN JOINT, LOWER LEG 08/27/2009 719.46 PAIN IN JOINT , LOWER LEG 08/27/2009 719.46 PAIN IN JOINT , LOWER LEG 08/27/2009 719.46 PAIN IN JOINT , LOWER LEG 08/27/2009 ELIZABETH LARSON APRN 719.46 [...] 717.40 DERANGEMENT OF LATERAL MENISCUS, UNSPECIFIED 09/23/2009 ELIZABTEH LARSON APRN 625.9 UNSPECIFIED SYMPTOM ASSOCIATED WITH [...] G VILLANUEVA DO 530.13 EOSINOPHILIC ESOPHAGITIS 11/08/2010 VILLANUEVA DO, MARIA G K 553.3 DIAPHRAGMATIC HERNIA WITHOUT OBSTRUCTION OR GANGRENE 11/08/2010 530.13 EOSINOPHILIC ESOPHAGITIS 11/08/2010 553.3 DIAPHRAGMATIC HERNIA WITHOUT OBSTRUCTION OR GANGRENE 11/08/2010 TRISTIN RODRIGUEZ APRN 530.13 EOSINOPHILIC ESOPHAGITIS 11/08/2010 TRISTIN RODRIGUEZ APRN [...] 05/22/2012 V03.89 MENINGOCOCCAL DX 05/22/2012 V04.89 GARDASIL (HPV ) DX 05/22/2012 V06.1 TDAP DX 05/22/2012 V69.2 HIGH-RISK SEXUAL BEHAVIOR 05/22/2012 626.2 EXCESSIVE OR FREQUENT MENSTRUATION 05/22/2012 V03.89 MENINGOCOCCAL DX 05/22/2012 V04.89 GARDASIL (HPV ) DX 05/22/2012 V06.1 TDAP DX 05/22/2012 V69.2 HIGH-RISK SEXUAL BEHAVIOR 05/22/2012 626.2 EXCESSIVE OR FREQUENT MENSTRUATION 05/22/2012 V03.89 MENINGOCOCCAL DX 05/22/2012 V04.89 GARDASIL (HPV ) DX 05/22/2012 V06.1 TDAP DX 05/22/2012 V69.2 [...] URINARY TRACT INFECTION SITE NOT SPECIFIED 10/02/2012 SHELLEY SAUNDERS MD Ot 625.9 FEM GENITAL SYMPTOMS NOS 12/01/2012 REBEKAH SALCIDO MD Ot 789.00 ABDOMINAL PAIN, UNSPECIFIED SITE 02/24/2013 [...] RAPHAEL MD Ot 654.83 ABNORMAL VULVA-ANTEPART 08/30/2013 MARIA G VILLANUEVA DO Ot 648.93 OTH CURR COND-ANTEPARTUM 08/30/2013 MARIA G VILLANUEVA DO Ot 789.00 ABDOMINAL PAIN, UNSPECIFIED SITE 10/08/2013 RAQUEL RAPHAEL MD Ot 599.0 URIN TRACT INFECTION NOS 10/08/2013 RAQUEL RAPHAEL MD Ot 646.63 INFECTION-ANTEPARTUM 10/17/2013 RAQUEL RAPHAEL MD Ot 644.03 THRT BRANDON LABOR-ANTEPART 10/23/2013 DONAVON TEJADA, RAQUEL Isabel Ot 644.03 THRT BRANDON LABOR-ANTEPART 10/29/2013 DONAVON TEJADA, RAQUEL Isabel Ot 650 NORMAL DELIVERY 10/29/2013 DONAVON TEJADA, RAQUEL Isabel Ot V06.1 [id number], COMBINED [ 10/29/2013 DONAVON TEJADA, RAQUEL Isabel Ot V27.0 DELIVER-SINGLE LIVEBORN 02/12/2015 Ot 530.81 [...] 02/12/2015 DONAVON TEJADA, RAQUEL Isabel Ot V28.81 02/12/2015 HALLE WARREN APRN Ot J01.10 ACUTE FRONTAL SINUSITIS, UNSPECIFIED 02/12/2015 HALLE WARREN BELLSTAND ATTENDANT Ot R05 COUGH 02/12/2015 Ot 530.81 02/12/2015 [...] PAIN, UNSPECIFIED SITE 03/12/2016 Ot V72.83 EXAM PRE- OPERATIVE NEC 03/12/2016 Ot 599.70 HEMATURIA, UNSPECIFIED 03/12/2016 Ot 789.00 ABDOMINAL PAIN, UNSPECIFIED SITE 03/12/2016 Ot 564.00 UNSPEC CONSTIPATION 03/12/2016 Ot 578.1 BLOOD IN STOOL 03/12/2016 Ot 789.00 ABDOMINAL PAIN, UNSPECIFIED SITE 03/12/2016 Ot 625.9 FEM GENITAL SYMPTOMS NOS 03/12/2016 Ot 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 03/12/2016 Ot 789.00 ABDOMINAL PAIN, UNSPECIFIED SITE 03/12/2016 BILL TEJADA, TROY Connor Ot 599.0 URIN TRACT INFECTION NOS 03/12/2016 [...] PAIN, UNSPECIFIED SITE 03/29/2016 Ot V72.83 EXAM PRE- OPERATIVE NEC 03/29/2016 Ot 599.70 HEMATURIA, UNSPECIFIED 03/29/2016 [...] OUT D/T PT LV BEF SEE 03/29/2016 STAR PARKS DO Ot M54.5 LOW BACK PAIN 03/29/2016 CHARLY SOUZA, STAR K Ot N39.0 URINARY TRACT INFECTION, SITE NOT SPECIF 03/30/2016 STAR PARKS DO Ot M54.5 LOW BACK PAIN 03/30/2016 CHARLY SOUZA, STAR K Ot N39.0 URINARY TRACT INFECTION, SITE NOT [...] Ot V28.81 ENCOUNTER FOR ANATOMIC SURVEY 07/03/2016 KATY TEJADA, ESPERANZA Delacruz Ot N91.2 AMENORRHEA, UNSPECIFIED 07/11/2016 ESPERANZA BURNS MD Ot N91.2 AMENORRHEA, UNSPECIFIED 09/07/2016 Ot 564.00 UNSPEC CONSTIPATION 09/07/2016 Ot 578.1 BLOOD IN STOOL 09/07/2016 Ot 789.00 ABDOMINAL PAIN, UNSPECIFIED SITE 09/07/2016 Ot 625.9 FEM GENITAL SYMPTOMS NOS 09/07/2016 Ot 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 09/07/2016 Ot 789.00 ABDOMINAL PAIN, UNSPECIFIED SITE 09/07/2016 BILL TEJADA, TROY Nikolas Ot 599.0 URIN TRACT INFECTION NOS 09/07/2016 RAQUEL RAPHAEL MD Ot V28.81 ENCOUNTER FOR ANATOMIC SURVEY 09/07/2016 KATY TEJADA, ESPERANZA C Ot N91.2 AMENORRHEA, UNSPECIFIED 09/13/2016 RAQUEL RAPHAEL MD, Ot Z36 ENCOUNTER FOR SCREENING OF MOT 09/13/2016 RAQUEL RAPHAEL MD, Ot Z3A.08 8 WEEKS GESTATION OF 09/13/2016 RAQUEL RAPHAEL MD, Ot Z36 ENCOUNTER FOR SCREENING OF MOT 09/13/2016 RAQUEL RAPHAEL MD, Ot Z3A.08 8 WEEKS GESTATION OF 09/13/2016 RAQUEL RAPHAEL MD, Ot Z36 ENCOUNTER FOR SCREENING OF MOT 09/13/2016 RAQUEL RAPHAEL MD, Ot Z3A.08 8 WEEKS GESTATION OF 09/14/2016 HALLE WARREN APRN Ot O99.89 OTH DISEASES AND CONDITIONS COMPL PREG/C 09/14/2016 HALLE WARREN APRN Ot S70.362A INSECT BITE (NONVENOMOUS), LEFT THIGH, I 09/14/2016 HALLE WARREN APRN Ot W57.XXXA BIT/STUNG BY NONVENOM INSECT OTH NONVE 09/14/2016 HALLE WARREN APRN Ot Y92.[address] [facility] [address] IN [facility] NON-INSTITUT (PRIVATE 09/14/2016 HALLE WARREN APRN Ot Y99.8 OTHER EXTERNAL CAUSE STATUS 09/14/2016 HALLE WARREN APRN Ot Z3A.09 9 WEEKS GESTATION OF 09/22/2016 RAQUEL RAPHAEL MD, Ot Z36 ENCOUNTER FOR SCREENING OF MOT 09/22/2016 RAQUEL RAPHAEL MD, Ot Z3A.08 8 WEEKS GESTATION OF 10/05/2016 Ot 564.00 UNSPEC CONSTIPATION 10/05/2016 Ot 578.1 BLOOD IN STOOL 10/05/2016 Ot 789.00 ABDOMINAL PAIN, UNSPECIFIED SITE 10/05/2016 Ot 625.9 FEM GENITAL SYMPTOMS NOS 10/05/2016 Ot 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 10/05/2016 Ot 789.00 ABDOMINAL PAIN, UNSPECIFIED SITE 10/05/2016 BILL TEJADA, TROY Connor Ot 599.0 URIN TRACT INFECTION NOS 10/05/2016 DONAVON TEJADA, RAQUEL Isabel Ot V28.81 ENCOUNTER FOR ANATOMIC SURVEY 10/05/2016 KATY TEJADA, ESPERANZA Delacruz Ot N91.2 AMENORRHEA, UNSPECIFIED 10/05/2016 DONAVON TEJADA, RAQUEL Isabel Ot Z36 ENCOUNTER FOR SCREENING OF MOT 10/05/2016 DONAVON TEJADA, RAQUEL Isabel Ot Z3A.08 8 WEEKS GESTATION OF 10/05/2016 HALLE WARREN BELLSTAND ATTENDANT Ot O03.9 COMPLETE OR UNSP SPONTANEOUS WI 10/05/2016 HALLE WARREN BELLSTAND ATTENDANT Ot O36.4XX0 MATERNAL CARE FOR INTRAUTERINE , NO 10/05/2016 HALLE WARREN BELLSTAND ATTENDANT Ot O46.91 ANTEPARTUM HEMORRHAGE, UNSPECIFIED, FIRS 10/05/2016 HALLE WARREN BELLSTAND ATTENDANT Ot Z3A.09 9 WEEKS GESTATION OF 10/06/2016 PETE TEJADA, DMITRY Stacy Ot O02.1 MISSED 10/07/2016 ALEXIS, EL TEST TECHNICIAN Ot J45.909 UNSPECIFIED ASTHMA, UNCOMPLICATED 10/07/2016 ALEXIS, EL TEST TECHNICIAN Ot N39.0 URINARY TRACT INFECTION, SITE NOT SPECIF 10/07/2016 ALEXIS, EL TEST TECHNICIAN Ot R42 DIZZINESS AND GIDDINESS 10/07/2016 ALEXIS, EL TEST TECHNICIAN Ot Z87.828 PERSONAL HISTORY OF OTH (HEALED) PHYSICA 10/07/2016 ALEXIS, EL TEST TECHNICIAN Ot Z98.890 OTHER SPECIFIED POSTPROCEDURAL STATES 10/09/2016 ALEXIS, EL TEST TECHNICIAN Ot J45.909 UNSPECIFIED ASTHMA, UNCOMPLICATED 10/09/2016 ALEXIS, EL TEST TECHNICIAN Ot N39.0 URINARY TRACT INFECTION, SITE NOT SPECIF 10/09/2016 ALEXIS, EL TEST TECHNICIAN Ot R42 DIZZINESS AND GIDDINESS 10/09/2016 ALEXIS, EL TEST TECHNICIAN Ot Z87.828 PERSONAL HISTORY OF OTH (HEALED) PHYSICA 10/09/2016 ALEXIS, EL TEST TECHNICIAN Ot Z98.890 OTHER SPECIFIED POSTPROCEDURAL STATES 10/16/2016 DMITRY FREEMAN MD Ot O02.1 MISSED 02/04/2017 Ot 789.00 ABDOMINAL PAIN, UNSPECIFIED SITE 02/04/2017 Ot 625.9 FEM GENITAL SYMPTOMS NOS 02/04/2017 Ot 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 02/04/2017 Ot 789.00 ABDOMINAL PAIN, UNSPECIFIED SITE 02/04/2017 TROY KHAN MD Ot 599.0 URIN TRACT INFECTION NOS 02/04/2017 RAQUEL RAPHAEL MD, Ot V28.81 ENCOUNTER FOR ANATOMIC SURVEY 02/04/2017 ESPERANZA BURNS MD Ot N91.2 AMENORRHEA, UNSPECIFIED 02/04/2017 RAQUEL RAPHAEL MD, Ot Z36 ENCOUNTER FOR SCREENING OF MOT 02/04/2017 RAQUEL RAPHAEL MD, Ot Z3A.08 8 WEEKS GESTATION OF 02/04/2017 SHELLEY SAUNDERS MD, Ot N92.0 EXCESSIVE AND FREQUENT MENSTRUATION WITH 02/04/2017 SHELLEY SAUNDERS MD, Ot N93.9 ABNORMAL UTERINE AND VAGINAL BLEEDING, U 02/04/2017 SHELLEY SAUNDERS MD, Ot Z32.02 ENCOUNTER FOR TEST, RESULT NEG 02/04/2017 SHELLEY SAUNDERS MD, Ot Z87.19 PERSONAL HISTORY OF OTHER DISEASES OF TH 02/04/2017 SHELLEY SAUNDERS MD, Ot Z87.440 PERSONAL HISTORY OF URINARY (TRACT) INFE 03/22/2017 RAQUEL RPAHAEL MD, Ot M54.5 LOW BACK PAIN 03/22/2017 RAQUEL RAPHAEL MD, Ot R22.2 LOCALIZED SWELLING, MASS AND LUMP, TRUNK 04/18/2017 Ot 789.00 ABDOMINAL PAIN, UNSPECIFIED SITE 04/18/2017 Ot 625.9 FEM GENITAL SYMPTOMS NOS 04/18/2017 Ot 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 04/18/2017 Ot 789.00 ABDOMINAL PAIN, UNSPECIFIED SITE 04/18/2017 TROY KHAN MD Ot 599.0 URIN TRACT INFECTION NOS 04/18/2017 RAQUEL RAPHAEL MD, Ot V28.81 ENCOUNTER FOR ANATOMIC SURVEY 04/18/2017 ESPERANZA BURNS MD Ot N91.2 AMENORRHEA, UNSPECIFIED 04/18/2017 RAQUEL RAPHAEL MD, Ot Z36 ENCOUNTER FOR SCREENING OF MOT 04/18/2017 RAQUEL RAPHAEL MD, Ot Z3A.08 8 WEEKS GESTATION OF 04/18/2017 RAQUEL RAPHAEL MD, Ot M54.5 LOW BACK PAIN 04/18/2017 RAQUEL RAPHAEL MD, Ot R22.2 LOCALIZED SWELLING, MASS AND LUMP, TRUNK 04/19/2017 RAQUEL RAPHAEL MD, Ot N83.202 UNSPECIFIED OVARIAN CYST, LEFT SIDE 04/19/2017 RAQUEL RAPHAEL MD, Ot O34.82 MATERNAL CARE FOR OTH ABNLT OF PELVIC OR 04/19/2017 RAQUEL RAPHAEL MD, Ot Z3A.01 LESS THAN 8 WEEKS GESTATION OF 05/01/2017 RAQUEL RAPHAEL MD, Ot N83.202 UNSPECIFIED OVARIAN CYST, LEFT SIDE 05/01/2017 RAQUEL RAPHAEL MD, Ot O34.82 MATERNAL CARE FOR OTH ABNLT OF PELVIC OR 05/01/2017 RAQUEL RAPHAEL MD, Ot Z3A.01 LESS THAN 8 WEEKS GESTATION OF 05/24/2017 RAQUEL RAPHAEL MD, Ot O99.89 OTH DISEASES AND CONDITIONS COMPL PREG/C 05/24/2017 RAQUEL RAPHAEL MD Ot R10.9 UNSPECIFIED ABDOMINAL PAIN 05/24/2017 RAQUEL RAPHAEL MD, Ot Z3A.11 11 WEEKS GESTATION OF 06/05/2017 RAQUEL RAPHAEL MD, Ot O99.89 OTH DISEASES AND CONDITIONS COMPL PREG/C 06/05/2017 RAQUEL RAPHAEL MD, Ot R10.9 UNSPECIFIED ABDOMINAL PAIN 06/05/2017 RAQUEL RAPHAEL MD, Ot Z3A.11 11 WEEKS GESTATION OF 07/17/2017 RAQUEL RAPHAEL MD, Ot O44.42 LOW LYING PLACENTA NOS OR WITHOUT HEMOR, 07/17/2017 RAQUEL RAPHAEL MD, Ot Z36.89 ENCOUNTER FOR OTHER SPECIFIED 07/17/2017 RAQUEL RAPHAEL MD, Ot Z3A.18 18 WEEKS GESTATION OF 08/01/2017 RAQUEL RAPHAEL MD, Ot O44.42 LOW LYING PLACENTA NOS OR WITHOUT HEMOR, 08/01/2017 RAQUEL RAPHAEL MD, Ot Z36.89 ENCOUNTER FOR OTHER SPECIFIED 08/01/2017 ARQUEL RAPHAEL MD, Ot Z3A.18 18 WEEKS GESTATION OF 10/04/2017 Ot N94.89 OTH COND ASSOC W FEMALE GENITAL ORGANS A 10/04/2017 Ot O99.89 OTH DISEASES AND CONDITIONS COMPL PREG/C 10/04/2017 Ot Z3A.30 30 WEEKS GESTATION OF 10/07/2017 Ot J45.909 UNSPECIFIED ASTHMA, UNCOMPLICATED 10/07/2017 Ot L03.031 CELLULITIS OF RIGHT TOE 10/07/2017 Ot O99.512 DISEASES OF THE RESP SYS COMP , 10/07/2017 Ot O99.712 DISEASES OF THE SKIN, SUBCU COMP PREGNAN 10/07/2017 Ot Z3A.21 21 WEEKS GESTATION OF 10/07/2017 Ot Z87.19 PERSONAL HISTORY OF OTHER DISEASES OF TH 10/07/2017 Ot Z87.448 PERSONAL HISTORY OF OTHER DISEASES OF UR 10/07/2017 Ot Z88.0 ALLERGY STATUS TO PENICILLIN 10/07/2017 Ot Z88.5 ALLERGY STATUS TO NARCOTIC AGENT STATUS 10/07/2017 Ot Z91.041 RADIOGRAPHIC DYE ALLERGY STATUS 10/22/2017 Ot O44.03 COMPLETE PLACENTA PREVIA NOS OR WITHOUT 10/22/2017 Ot Z3A.36 36 WEEKS GESTATION OF 10/30/2017 Ot O44.03 COMPLETE PLACENTA PREVIA NOS OR WITHOUT 10/30/2017 Ot Z3A.36 36 WEEKS GESTATION OF 12/06/2017 BILL TEJADA, TROY Connor Ot 599.0 URIN TRACT INFECTION NOS 12/06/2017 RAQUEL RAPHAEL MD Ot V28.81 ENCOUNTER FOR ANATOMIC SURVEY 12/06/2017 KATY TEJADA, ESPERANZA Delacruz Ot N91.2 AMENORRHEA, UNSPECIFIED 12/06/2017 RAQUEL RAPHAEL MD, Ot Z36 ENCOUNTER FOR SCREENING OF MOT 12/06/2017 RAQUEL RAPHAEL MD, Ot Z3A.08 8 WEEKS GESTATION OF 12/06/2017 RAQUEL RAPHAEL MD, Ot M54.5 LOW BACK PAIN 12/06/2017 RAQUEL RAPHAEL MD Ot R22.2 LOCALIZED SWELLING, MASS AND LUMP, TRUNK 12/06/2017 RAQUEL RAPHAEL MD Ot N83.202 UNSPECIFIED OVARIAN CYST, LEFT SIDE 12/06/2017 RAQUEL RAPHAEL MD Ot O34.82 MATERNAL CARE FOR OTH ABNLT OF PELVIC OR 12/06/2017 RAQUEL RAPHAEL MD, Ot Z3A.01 LESS THAN 8 WEEKS GESTATION OF 12/06/2017 RAQUEL RAPHAEL MD, Ot O99.89 OTH DISEASES AND CONDITIONS COMPL PREG/C 12/06/2017 RAQUEL RAPHAEL MD, Ot R10.9 UNSPECIFIED ABDOMINAL PAIN 12/06/2017 RAQUEL RAPHAEL MD, Ot Z3A.11 11 WEEKS GESTATION OF 12/06/2017 RAQUEL RAPHAEL MD, Ot O44.42 LOW LYING PLACENTA NOS OR WITHOUT HEMOR, 12/06/2017 RAQUEL RAPHAEL MD, Ot Z36.89 ENCOUNTER FOR OTHER SPECIFIED 12/06/2017 RAQUEL RAPHAEL MD, Ot Z3A.18 18 WEEKS GESTATION OF 12/06/2017 Ot O44.03 COMPLETE PLACENTA PREVIA NOS OR WITHOUT 12/06/2017 Ot Z3A.36 36 WEEKS GESTATION OF 12/08/2017 RAQUEL RAPHAEL MD, Ot D62 ACUTE POSTHEMORRHAGIC ANEMIA 12/08/2017 RAQUEL RAPHAEL MD, Ot O62.2 OTHER UTERINE INERTIA 12/08/2017 RAQUEL RAPHAEL MD, Ot O64.0XX0 OBSTRUCTED LABOR DUE TO INCMPL ROTATION 12/08/2017 RAQUEL RAPHAEL MD, Ot O69.81X0 LABOR AND DEL COMP BY CORD AROUND NECK, 12/08/2017 RAQUEL RAPHAEL MD, Ot O90.81 ANEMIA OF THE PUERPERIUM 12/08/2017 RAQUEL RAPHALE MD, Ot Z23 ENCOUNTER FOR IMMUNIZATION 12/08/2017 RAQUEL RAPHAEL MD, Ot Z37.0 SINGLE LIVE 12/08/2017 RAQUEL RAPHAEL MD, Ot Z3A.39 39 WEEKS GESTATION OF 05/08/2018 RAQUEL RAPHAEL MD, Ot V28.81 ENCOUNTER FOR ANATOMIC SURVEY 05/08/2018 KATY TEJADA, ESPERANZA Delacruz Ot N91.2 AMENORRHEA, UNSPECIFIED 05/08/2018 RAQUEL RAPHAEL MD, Ot Z36 ENCOUNTER FOR SCREENING OF MOT 05/08/2018 RAQUEL RAPHAEL MD, Ot Z3A.08 8 WEEKS GESTATION OF 05/08/2018 RAQUEL RAPHAEL MD, Ot M54.5 LOW BACK PAIN 05/08/2018 DONAVON MD, RAQUEL J Ot R22.2 LOCALIZED SWELLING, MASS AND LUMP, TRUNK 05/08/2018 RAQUEL RAPHAEL MD, Ot N83.202 UNSPECIFIED OVARIAN CYST, LEFT SIDE 05/08/2018 RAQUEL RAPHAEL MD, Ot O34.82 MATERNAL CARE FOR OTH ABNLT OF PELVIC OR 05/08/2018 RAQUEL RAPHAEL MD, Ot Z3A.01 LESS THAN 8 WEEKS GESTATION OF 05/08/2018 RAQUEL RAPHAEL MD, Ot O99.89 OTH DISEASES AND CONDITIONS COMPL PREG/C 05/08/2018 RAQUEL RAPHAEL MD, Ot R10.9 UNSPECIFIED ABDOMINAL PAIN 05/08/2018 RAQUEL RAPHAEL MD, Ot Z3A.11 11 WEEKS GESTATION OF 05/08/2018 RAQUEL RAPHAEL MD, Ot O44.42 LOW LYING PLACENTA NOS OR WITHOUT HEMOR, 05/08/2018 RAQUEL RAPHAEL MD, Ot Z36.89 ENCOUNTER FOR OTHER SPECIFIED 05/08/2018 RAQUEL RAPHAEL MD, Ot Z3A.18 18 WEEKS GESTATION OF 05/08/2018 Ot O44.03 COMPLETE PLACENTA PREVIA NOS OR WITHOUT 05/08/2018 Ot Z3A.36 36 WEEKS GESTATION OF 05/14/2018 RAQUEL RAPHAEL MD, Ot V28.81 ENCOUNTER FOR ANATOMIC SURVEY 05/14/2018 KATY TEJADA, ESPERANZA Delacruz Ot N91.2 AMENORRHEA, UNSPECIFIED 05/14/2018 RAQUEL RAPHAEL MD, Ot Z36 ENCOUNTER FOR SCREENING OF MOT 05/14/2018 RAQUEL RAPHAEL MD, Ot Z3A.08 8 WEEKS GESTATION OF 05/14/2018 RAQUEL RAPHAEL MD, Ot M54.5 LOW BACK PAIN 05/14/2018 RAQUEL RAPHAEL MD, Ot R22.2 LOCALIZED SWELLING, MASS AND LUMP, TRUNK 05/14/2018 RAQUEL RAPHAEL MD, Ot N83.202 UNSPECIFIED OVARIAN CYST, LEFT SIDE 05/14/2018 RAQUEL RAPHAEL MD, Ot O34.82 MATERNAL CARE FOR OTH ABNLT OF PELVIC OR 05/14/2018 RAQUEL RAPHAEL MD, Ot Z3A.01 LESS THAN 8 WEEKS GESTATION OF 05/14/2018 RAQUEL RAPHAEL MD, Ot O99.89 OTH DISEASES AND CONDITIONS COMPL PREG/C 05/14/2018 RAQUEL RAPHAEL MD, Ot R10.9 UNSPECIFIED ABDOMINAL PAIN 05/14/2018 RAQUEL RAPHAEL MD, Ot Z3A.11 11 WEEKS GESTATION OF 05/14/2018 RAQUEL RAPHAEL MD, Ot O44.42 LOW LYING PLACENTA NOS OR WITHOUT HEMOR, 05/14/2018 RAQUEL RAPHAEL MD, Ot Z36.89 ENCOUNTER FOR OTHER SPECIFIED 05/14/2018 RQAUEL RAPHAEL MD, Ot Z3A.18 18 WEEKS GESTATION OF 05/14/2018 Ot O44.03 COMPLETE PLACENTA PREVIA NOS OR WITHOUT 05/14/2018 Ot Z3A.36 36 WEEKS GESTATION OF 05/15/2018 RAQUEL RAPHAEL MD, Ot Z34.91 ENCNTR FOR SUPRVSN OF NORMAL PREG, UNSP, 05/15/2018 RAQUEL RAPHAEL MD, Ot Z3A.09 9 WEEKS GESTATION OF 05/15/2018 RAQUEL RAPHAEL MD, Ot Z34.91 ENCNTR FOR SUPRVSN OF NORMAL PREG, UNSP, 05/15/2018 RAQUEL RAPHAEL MD, Ot Z3A.09 9 WEEKS GESTATION OF Procedures Code Description [place] [address] UA W/ CULTURE IF INDICATED 01/19/2012 91084 UA W/ CULTURE IF INDICATED 05/08/2012 26624 CULTURE URINE 05/08/2012 42078 ROUTINE VENIPUNCTURE 05/22/2012 41549 GC/CHLAM URINE (STATE) 05/22/2012 66853 HIV ANTIBODIES (RML) 05/22/2012 19350 [facility] 06/03/2012 72244 URINE TEST (IN- HOUSE) 07/30/2012 48509 UA W/ CULTURE IF INDICATED 07/30/2012 99475 CULTURE URINE 07/30/2012 55551 VCUG - VOIDING CYSTOURETHROGRAM 07/30/2012 26544 URINE TEST (IN- HOUSE) 02/24/2013 46107 US OB - EARLY <14 WEEKS 02/25/2013 41377 UA W/ CULTURE IF INDICATED 02/25/2013 96.49 OTHER INSTILLATION 10/27/2013 73.6 EPISIOTOMY 10/28/2013 24669BR DRAINAGE OF AMNIOTIC FL, THERAP FROM POC 12/06/2017 [id number] EXTRACTION OF PRODUCTS OF CONCEPTION, LO 12/06/2017 Results Test Result Range hCG,Beta Subunit,Qual,Serum - 12/06/15 11:01 hCG,Beta Subunit,Qual,Serum Negative mIU/mL Negative <6 Complete urinalysis with reflex to culture - 03/29/16 07:45 Urine color determination YELLOW NRG Urine clarity determination CLEAR NRG Urine pH measurement by test strip 5 5-9 Specific gravity of urine by test strip 1.010 1.016- 1.022 Urine protein assay by test strip, semi-quantitative [...] culture - 03/29/16 07:45 Bacterial urine culture [id number] NRG COLONY COUNT <10,000 NRG FTX;REPORTABLE SENSITIVITY REPORTED 03/30/16 16:30 NRG FREE TEXT ENTRY 3 MIXED GRAM POSITIVE BETTIE <10,000/ML NRG Bacterial susceptibility panel - 03/29/16 07:45 Gentamicin susceptibility test by minimum inhibitory concentration < = NRG Trimethoprim/sulfamethoxazole susceptibility test by minimum inhibitoryconcentration <= NRG Ampicillin susceptibility test by minimum inhibitory concentration < = NRG Tobramycin susceptibility test by minimum inhibitory concentration < = NRG Cefazolin susceptibility test by minimum inhibitory concentration < = NRG Ceftriaxone susceptibility test by minimum inhibitory concentration <= NRG Ampicillin/sulbactam susceptibility test by minimum inhibitory concentration <= NRG Piperacillin/tazobactam susceptibility test by minimum inhibitory concentration <= NRG Ciprofloxacin susceptibility test by minimum inhibitory concentration <= NRG Meropenem susceptibility test by minimum inhibitory concentration < = NRG Nitrofurantoin susceptibility test by minimum inhibitory concentration <= NRG Aztreonam susceptibility test by minimum inhibitory concentration < = NRG Extended spectrum beta lactamase (ESBL) producing bacteria susceptibility test by minimum inhibitory concentration - NRG Serum or plasma choriogonadotropin measurement (units/volume) - 06/30/16 08:51 Serum or plasma choriogonadotropin measurement (units/volume) < m[iU ]/mL <5 Complete blood count (CBC) with automated white blood cell (WBC) differential - 10/05/16 16:27 Blood leukocytes automated count (number/volume) 9.1 10*3/uL 4.3-11.0 Blood erythrocytes automated count (number/volume) 4.30 10*6/uL 4.35-5.85 Venous blood hemoglobin measurement (mass/volume) 13.2 g/dL 11.5-16.0 Blood hematocrit (volume fraction) 38 % 35-52 Automated erythrocyte mean corpuscular volume 89 [foz_us] 80-99 Automated erythrocyte mean corpuscular hemoglobin (mass per erythrocyte) 31 pg 25-34 Automated erythrocyte mean corpuscular hemoglobin concentration measurement ( mass/volume) 35 g/dL 32-36 Automated erythrocyte distribution width ratio 12.3 % 10.0-14.5 Automated blood platelet count (count/volume) 198 10*3/uL 130-400 Automated blood platelet mean volume measurement 11.2 [foz_us] 7.4-10.4 Automated blood neutrophils/100 leukocytes 68 % 42-75 Automated blood lymphocytes/100 leukocytes 24 % 12-44 Blood monocytes/100 leukocytes 5 % 0-12 Automated blood eosinophils/100 leukocytes 3 % 0-10 Automated blood basophils/100 leukocytes 0 % 0-10 Blood neutrophils automated count (number/volume) 6.1 10*3 1.8-7.8 Blood lymphocytes automated count (number/volume) 2.2 10*3 1.0-4.0 Blood monocytes automated count (number/volume) 0.5 10*3 0.0-1.0 Automated eosinophil count 0.3 10*3/uL 0.0-0.3 Automated blood basophil count (count/volume) 0.0 10*3/uL 0.0-0.1 Serum or plasma choriogonadotropin measurement (units/volume) - 10/05/16 16:27 Serum or plasma choriogonadotropin measurement (units/volume) 60619 m[iU]/mL <5 Complete urinalysis with reflex to culture - 10/05/16 16:55 Urine color determination YELLOW NRG Urine clarity determination CLEAR NRG Urine pH measurement by test strip 5 5-9 Specific gravity of urine by test strip 1.020 1.016- 1.022 Urine protein assay by test strip, semi-quantitative NEGATIVE NEGATIVE Urine glucose detection by automated test strip NEGATIVE NEGATIVE Erythrocytes detection in urine sediment by light microscopy 5+ NEGATIVE Urine ketones detection by automated test strip NEGATIVE NEGATIVE Urine nitrite detection by test strip NEGATIVE NEGATIVE Urine total bilirubin detection by test strip NEGATIVE NEGATIVE Urine urobilinogen measurement by automated test strip (mass/volume) NORMAL NORMAL Urine leukocyte esterase detection by dipstick 2+ NEGATIVE Automated urine sediment erythrocyte count by microscopy (number/high power field) [HPF] NRG Automated urine sediment leukocyte count by microscopy (number/high power field ) [HPF] NRG Bacteria detection in urine sediment by light microscopy FEW NRG Squamous epithelial cells detection in urine sediment by light microscopy 10-25 NRG Crystals detection in urine sediment by light microscopy NONE NRG Casts detection in urine sediment by light microscopy NONE NRG Mucus detection in urine sediment by light microscopy NEGATIVE NRG Complete urinalysis with reflex to culture YES NRG Bacterial urine culture - 10/05/16 16:55 URINE CULTURE RESULTS <10,000/ML NRG Methicillin resistant Staphylococcus aureus (MRSA) screening culture - 14:00 Methicillin resistant Staphylococcus aureus (MRSA) screening culture NEG NRG Complete blood count (CBC) with automated white blood cell (WBC) differential - 10/06/16 14:05 Blood leukocytes automated count (number/volume) 10.8 10*3/uL 4.3-11.0 Blood erythrocytes automated count (number/volume) 4.30 10*6/uL 4.35-5.85 Venous blood hemoglobin measurement (mass/volume) 13.4 g/dL 11.5-16.0 Blood hematocrit (volume fraction) 39 % 35-52 Automated erythrocyte mean corpuscular volume 90 [foz_us] 80-99 Automated erythrocyte mean corpuscular hemoglobin (mass per erythrocyte) 31 pg 25-34 Automated erythrocyte mean corpuscular hemoglobin concentration measurement ( mass/volume) 35 g/dL 32-36 Automated erythrocyte distribution width ratio 12.3 % 10.0-14.5 Automated blood platelet count (count/volume) 184 10*3/uL 130-400 Automated blood platelet mean volume measurement 11.3 [foz_us] 7.4-10.4 Automated blood neutrophils/100 leukocytes 76 % 42-75 Automated blood lymphocytes/100 leukocytes 17 % 12-44 Blood monocytes/100 leukocytes 5 % 0-12 Automated blood eosinophils/100 leukocytes 2 % 0-10 Automated blood basophils/100 leukocytes 0 % 0-10 Blood neutrophils automated count (number/volume) 8.2 10*3 1.8-7.8 Blood lymphocytes automated count (number/volume) 1.8 10*3 1.0-4.0 Blood monocytes automated count (number/volume) 0.5 10*3 0.0-1.0 Automated eosinophil count 0.2 10*3/uL 0.0-0.3 Automated blood basophil count (count/volume) 0.0 10*3/uL 0.0-0.1 Blood type T Indirect antibody screen panel - 10/06/16 14:05 ABO+Rh group BP NRG Transfusion band number [id number] NRG Blood group antibody screen NEGATIVE NRG Complete urinalysis with reflex to culture - 02/04/17 09:00 Urine color determination YELLOW NRG Urine clarity determination CLEAR NRG Urine pH measurement by test strip 7 5-9 Specific gravity of urine by test strip 1.005 1.016- 1.022 Urine protein assay by test strip, semi-quantitative NEGATIVE NEGATIVE Urine glucose detection by automated test strip NEGATIVE NEGATIVE Erythrocytes detection in urine sediment by light microscopy 5+ NEGATIVE Urine ketones detection by automated test strip NEGATIVE NEGATIVE Urine nitrite detection by test strip NEGATIVE NEGATIVE Urine total bilirubin detection by test strip NEGATIVE NEGATIVE Urine urobilinogen measurement by automated test strip (mass/volume) NORMAL NORMAL Urine leukocyte esterase detection by dipstick 1+ NEGATIVE Automated urine sediment erythrocyte count by microscopy (number/high power field) TNTC NRG Automated urine sediment leukocyte count by microscopy (number/high power field ) [HPF] NRG Bacteria detection in urine sediment by light microscopy NEGATIVE NRG Squamous epithelial cells detection in urine sediment by light microscopy 2-5 NRG Crystals detection in urine sediment by light microscopy NONE NRG Casts detection in urine sediment by light microscopy NONE NRG Mucus detection in urine sediment by light microscopy NEGATIVE NRG Complete urinalysis with reflex to culture NO NRG Complete blood count (CBC) with automated white blood cell (WBC) differential - 02/04/17 09:29 Blood leukocytes automated count (number/volume) 5.5 10*3/uL 4.3-11.0 Blood erythrocytes automated count (number/volume) 4.19 10*6/uL 4.35-5.85 Venous blood hemoglobin measurement (mass/volume) 13.0 g/dL 11.5-16.0 Blood hematocrit (volume fraction) 37 % 35-52 Automated erythrocyte mean corpuscular volume 89 [foz_us] 80-99 Automated erythrocyte mean corpuscular hemoglobin (mass per erythrocyte) 31 pg 25-34 Automated erythrocyte mean corpuscular hemoglobin concentration measurement ( mass/volume) 35 g/dL 32-36 Automated erythrocyte distribution width ratio 11.9 % 10.0-14.5 Automated blood platelet count (count/volume) 170 10*3/uL 130-400 Automated blood platelet mean volume measurement 12.4 [foz_us] 7.4-10.4 Automated blood neutrophils/100 leukocytes 57 % 42-75 Automated blood lymphocytes/100 leukocytes 32 % 12-44 Blood monocytes/100 leukocytes 8 % 0-12 Automated blood eosinophils/100 leukocytes 3 % 0-10 Automated blood basophils/100 leukocytes 0 % 0-10 Blood neutrophils automated count (number/volume) 3.1 10*3 1.8-7.8 Blood lymphocytes automated count (number/volume) 1.8 10*3 1.0-4.0 Blood monocytes automated count (number/volume) 0.5 10*3 0.0-1.0 Automated eosinophil count 0.2 10*3/uL 0.0-0.3 Automated blood basophil count (count/volume) 0.0 10*3/uL 0.0-0.1 Serum or plasma choriogonadotropin measurement (units/volume) - 02/04/17 09:29 Serum or plasma choriogonadotropin measurement (units/volume) < m[iU ]/mL <5 Serum or plasma choriogonadotropin measurement (units/volume) - 04/18/17 09:14 Serum or plasma choriogonadotropin measurement (units/volume) 75818 m[iU]/mL <5 Complete urinalysis with reflex to culture - 10/04/17 19:40 Urine color determination YELLOW NRG Urine clarity determination CLEAR NRG Urine pH measurement by test strip 6 5-9 Specific gravity of urine by test strip 1.025 1.016- 1.022 Urine protein assay by test strip, semi-quantitative NEGATIVE NEGATIVE Urine glucose detection by automated test strip 1+ NEGATIVE Erythrocytes detection in urine sediment by light microscopy 1+ NEGATIVE Urine ketones detection by automated test strip NEGATIVE NEGATIVE Urine nitrite detection by test strip NEGATIVE NEGATIVE Urine total bilirubin detection by test strip NEGATIVE NEGATIVE Urine urobilinogen measurement by automated test strip (mass/volume) 1 mg/dL NORMAL Urine leukocyte esterase detection by dipstick 1+ NEGATIVE Automated urine sediment erythrocyte count by microscopy (number/high power field) RARE NRG Automated urine sediment leukocyte count by microscopy (number/high power field ) RARE NRG Bacteria detection in urine sediment by light microscopy FEW NRG Squamous epithelial cells detection in urine sediment by light microscopy 2-5 NRG Crystals detection in urine sediment by light microscopy NONE NRG Casts detection in urine sediment by light microscopy NONE NRG Mucus detection in urine sediment by light microscopy NEGATIVE NRG Complete urinalysis with reflex to culture NO NRG Complete urinalysis with reflex to culture - 12/06/17 05:35 Urine color determination YELLOW NRG Urine clarity determination SLIGHTLY CLOUDY NRG Urine pH measurement by test strip 6 5-9 Specific gravity of urine by test strip 1.015 1.016- 1.022 Urine protein assay by test strip, semi-quantitative NEGATIVE NEGATIVE Urine glucose detection by automated test strip NEGATIVE NEGATIVE Erythrocytes detection in urine sediment by light microscopy NEGATIVE NEGATIVE Urine ketones detection by automated test strip NEGATIVE NEGATIVE Urine nitrite detection by test strip NEGATIVE NEGATIVE Urine total bilirubin detection by test strip NEGATIVE NEGATIVE Urine urobilinogen measurement by automated test strip (mass/volume) NORMAL NORMAL Urine leukocyte esterase detection by dipstick 3+ NEGATIVE Automated urine sediment erythrocyte count by microscopy (number/high power field) NONE NRG Automated urine sediment leukocyte count by microscopy (number/high power field ) [HPF] NRG Bacteria detection in urine sediment by light microscopy FEW NRG Squamous epithelial cells detection in urine sediment by light microscopy 5-10 NRG Crystals detection in urine sediment by light microscopy NONE NRG Casts detection in urine sediment by light microscopy NONE NRG Mucus detection in urine sediment by light microscopy NEGATIVE NRG Complete urinalysis with reflex to culture YES NRG Bacterial urine culture - 12/06/17 05:35 Bacterial urine culture SEE COMMEN NRG COLONY COUNT . NRG Complete blood count (CBC) with automated white blood cell (WBC) differential - 12/06/17 05:55 Blood leukocytes automated count (number/volume) 8.2 10*3/uL 4.3-11.0 Blood erythrocytes automated count (number/volume) 3.44 10*6/uL 4.35-5.85 Venous blood hemoglobin measurement (mass/volume) 11.1 g/dL 11.5-16.0 Blood hematocrit (volume fraction) 31 % 35-52 Automated erythrocyte mean corpuscular volume 91 [foz_us] 80-99 Automated erythrocyte mean corpuscular hemoglobin (mass per erythrocyte) 32 pg 25-34 Automated erythrocyte mean corpuscular hemoglobin concentration measurement ( mass/volume) 36 g/dL 32-36 Automated erythrocyte distribution width ratio 13.2 % 10.0-14.5 Automated blood platelet count (count/volume) 177 10*3/uL 130-400 Automated blood platelet mean volume measurement 11.1 [foz_us] 7.4-10.4 Automated blood neutrophils/100 leukocytes 68 % 42-75 Automated blood lymphocytes/100 leukocytes 20 % 12-44 Blood monocytes/100 leukocytes 7 % 0-12 Automated blood eosinophils/100 leukocytes 4 % 0-10 Automated blood basophils/100 leukocytes 0 % 0-10 Blood neutrophils automated count (number/volume) 5.6 10*3 1.8-7.8 Blood lymphocytes automated count (number/volume) 1.6 10*3 1.0-4.0 Blood monocytes automated count (number/volume) 0.6 10*3 0.0-1.0 Automated eosinophil count 0.4 10*3/uL 0.0-0.3 Automated blood basophil count (count/volume) 0.0 10*3/uL 0.0-0.1 Blood type T Indirect antibody screen panel - 12/06/17 05:55 ABO+Rh group BP NRG Transfusion band number [id number] NR Blood group antibody screen NEGATIVE [facility] Complete blood count (CBC) with automated white blood cell (WBC) differential - 12/07/17 05:08 Blood leukocytes automated count (number/volume) 16.2 10*3/uL 4.3-11.0 Blood erythrocytes automated count (number/volume) 3.33 10*6/uL 4.35-5.85 Venous blood hemoglobin measurement (mass/volume) 10.5 g/dL 11.5-16.0 Blood hematocrit (volume fraction) 30 % 35-52 Automated erythrocyte mean corpuscular volume 90 [foz_us] 80-99 Automated erythrocyte mean corpuscular hemoglobin (mass per erythrocyte) 32 pg 25-34 Automated erythrocyte mean corpuscular hemoglobin concentration measurement ( mass/volume) 35 g/dL 32-36 Automated erythrocyte distribution width ratio 13.0 % 10.0-14.5 Automated blood platelet count (count/volume) 187 10*3/uL 130-400 Automated blood platelet mean volume measurement 11.1 [foz_us] 7.4-10.4 Automated blood neutrophils/100 leukocytes 91 % 42-75 Automated blood lymphocytes/100 leukocytes 5 % 12-44 Blood monocytes/100 leukocytes 4 % 0-12 Automated blood eosinophils/100 leukocytes 0 % 0-10 Automated blood basophils/100 leukocytes 0 % 0-10 Blood neutrophils automated count (number/volume) 14.8 10*3 1.8-7.8 Blood lymphocytes automated count (number/volume) 0.7 10*3 1.0-4.0 Blood monocytes automated count (number/volume) 0.7 10*3 0.0-1.0 Automated eosinophil count 0.1 10*3/uL 0.0-0.3 Automated blood basophil count (count/volume) 0.0 10*3/uL 0.0-0.1 Blood manual differential performed detection - 12/07/17 05:08 Blood monocytes/100 leukocytes 2 % NRG Manual blood segmented neutrophils/100 leukocytes 83 % NRG Blood band neutrophils/100 leukocytes 1 % NRG Manual blood lymphocytes/100 leukocytes 4 % NRG Encounters ACCT No. Visit Date/Time Discharge Status Pt. Type Provider Facility Loc./Unit Complaint [id number] 02/25/2013 10:55:00 02/25/2013 23:59:59 CLS Outpatient ELIZABETH LARSON APRN [id number] 05/22/2012 10:02:00 05/22/2012 23:59:59 CLS Outpatient [id number] 05/08/2012 13:17:00 05/08/2012 23:59:59 CLS Outpatient TRISTIN RODRIGUEZ APRN [id number] 03/01/2012 12:32:00 03/01/2012 23:59:59 CLS Outpatient [id number] 01/19/2012 15:37:00 01/19/2012 23:59:59 CLS Outpatient MARIA G VILLANUEVA DO [id number] 07/30/2012 14:46:00 Document Registration [id number] 05/08/2012 13:17:00 Document Registration [id number] 05/14/2018 11:14:00 05/14/2018 23:59:59 CLS Outpatient RAQUEL RAPHAEL MD [facility] RAD DATING [id number] 12/06/2017 05:26:00 12/08/2017 22:25:00 DIS Inpatient RAQUEL RAPHAEL MD [facility] LDRP INDUCTION [id number] 10/30/2017 11:00:00 10/30/2017 23:59:59 CLS Preadmit JUANCARLOS DIETZ MD [facility] CARD PALPITATIONS, TACHYCARDIA,ANXIETY [id number] 10/30/2017 10:48:00 10/30/2017 23:59:59 CLS Preadmit JUANCARLOS DIETZ MD [facility] CARD PALPITATIONS, TACHYCARDIA,ANXIETY [id number] 07/16/2017 09:34:00 07/16/2017 23:59:59 CLS Outpatient RAQUEL RAPHAEL MD [facility] RAD SURVEY [id number] 05/23/2017 09:56:00 05/23/2017 23:59:59 CLS Outpatient RAQUEL RAPHAEL MD [facility] RAD CRAMPING 1ST TRIMESTER [id number] 04/24/2017 10:00:00 04/24/2017 23:59:59 CLS Preadmit RAQUEL RAPHAEL MD [facility] RAD DATING [id number] 04/18/2017 09:04:00 04/18/2017 23:59:59 CLS Outpatient RAQUEL RAPHAEL MD [facility] RAD PELVIC PAIN IN EARLY [id number] 03/09/2017 11:20:00 03/09/2017 23:59:59 CLS Outpatient RAQUEL RAPHAEL MD [facility] RAD MASS LT LUMBAR REGION [id number] 02/04/2017 08:46:00 02/04/2017 11:10:00 DIS Emergency CHIP TEJADA, SHELLEY Cerda [facility] ER VAGINAL BLEEDING AFTER POSTIVE TEST [id number] 10/07/2016 14:52:00 10/07/2016 16:34:00 DIS Emergency EL ESPINOZA [facility] ER HIGH BP, DIZZY [id number] 10/06/2016 13:44:00 10/06/2016 20:45:00 DIS Outpatient PETE TEJADA, DMITRY Stacy [facility] SDC DEMISE [id number] 10/05/2016 16:00:00 10/05/2016 18:05:00 DIS Emergency HALLE WARREN APRN [facility] ER 11 WKS . BLEEDING [id number] 09/14/2016 17:10:00 09/14/2016 18:10:00 DIS Emergency HALLE WARREN APRN [facility] ER PT WAS STUNG IN LT LEG/ PAIN AND SWELLING [id number] 09/12/2016 09:21:00 09/12/2016 23:59:59 CLS Outpatient RAQUEL RAPHAEL MD [facility] RAD DATES [id number] 06/30/2016 08:42:00 06/30/2016 23:59:59 CLS Outpatient KATY TEJADA, ESPERANZA Delacruz [facility] LAB N91.2 [id number] 03/29/2016 07:38:00 03/29/2016 08:56:00 DIS Emergency STAR PARKS DO K [facility] ER LOW BACK PAIN [id number] 03/12/2016 10:07:00 03/12/2016 10:36:00 DIS Emergency DONAL TEJADA, LOGAN Balderas [facility] ER BURNING URINATION [id number] 02/12/2015 16:20:00 02/12/2015 18:40:00 DIS Emergency HALLE WARREN APRN [facility] ER HEADACHE,COUGH;VOMITING [id number] 10/27/2013 18:57:00 10/29/2013 18:15:00 DIS Inpatient RAQUEL RAPHAEL MD [facility] LDRP INDUCTION [id number] 10/23/2013 00:30:00 10/23/2013 02:05:00 DIS Outpatient [facility] CONTRACTIONS,FLUID LEAKAGE [id number] 10/17/2013 17:10:00 10/17/2013 18:23:00 DIS Outpatient RAQUEL RAPHAEL MD [facility] PELVIC PRESSURE [id number] 10/08/2013 21:27:00 10/08/2013 23:15:00 DIS Outpatient RAQUEL RAPHAEL MD [facility] WSo ABD PAIN [id number] 08/30/2013 12:15:00 08/30/2013 13:15:00 DIS Outpatient MARIA G VILLANUEVA DO [facility] BACK PAIN ABD PAIN [id number] 06/24/2013 03:18:00 06/24/2013 11:32:00 DIS Outpatient [facility]EL [facility] VAG SWELLING [id number] 06/12/2013 09:34:00 06/12/2013 23:59:59 CLS Outpatient RAQUEL RAPHAEL MD [facility] RAD SURVEY [id number] 03/15/2013 11:55:00 03/15/2013 17:45:00 DIS Emergency SHELLEY SAUNDERS MD [facility] ER PREG 6 WEEKS BLEEDING CRAMPING TWINS [id number] 03/14/2013 13:21:00 03/14/2013 14:32:00 DIS Emergency SHELLEY SAUNDERS MD [facility] ER 8 WKS; VAGINAL BLEEDING [id number] 02/27/2013 18:39:00 02/27/2013 22:21:00 DIS Emergency JOSE DAVID HENDRICKS MD [facility] ER L SIDE PAIN [id number] 12/01/2012 22:20:00 12/01/2012 23:53:00 DIS Emergency REBEKAH SALCIDO MD [facility] ER ABD PAIN [id number] 10/02/2012 16:59:00 10/02/2012 21:26:00 DIS Emergency CHIP TEJADA, SHELLEY Cerda [facility] ER LOWER ABD PAIN [id number] 09/04/2012 17:59:00 09/04/2012 23:59:59 CLS Outpatient [id number] 08/15/2012 10:51:00 08/15/2012 23:59:59 CLS Outpatient TROY KHAN MD [facility] RAD UTI [id number] 07/28/2012 15:29:00 07/28/2012 23:59:59 CLS Outpatient [id number] 05/17/2018 18:53:00 ACT Emergency TRAVIS TEJADA, PRIYA Isabel [facility] ER BLOOD IN URINE,10 WKS [id number] 10/16/2017 09:44:00 Document Registration [id number] 10/07/2017 19:06:00 Document Registration [id number] 10/04/2017 20:25:00 Document Registration [id number] 02/12/2015 16:20:00 Document Registration [id number] 02/12/2015 16:20:00 Document Registration [id number] 03/30/2012 09:07:00 Document Registration [id number] 03/05/2012 00:00:00 Document Registration [id number] 02/09/2012 11:07:00 Document Registration [id number] 01/30/2012 11:12:00 Document Registration [id number] 01/24/2012 09:08:00 Document Registration [id number] 12/08/2011 16:59:00 Document Registration [id number] 11/28/2011 18:18:00 Document Registration [id number] 11/13/2011 09:15:00 Document Registration [id number] 05/08/2011 10:45:00 Document Registration [id number] 03/17/2011 13:07:00 Document Registration [id number] 03/10/2011 15:26:00 Document Registration [id number] 01/26/2011 22:44:00 Document Registration [id number] 12/30/2010 16:22:00 Document Registration [id number] 10/28/2010 09:56:00 Document Registration [id number] 10/18/2010 05:56:00 Document Registration [id number] 10/10/2010 13:04:00 Document Registration [id number] 09/10/2010 21:53:00 Document Registration [id number] 07/28/2010 17:45:00 Document Registration [id number] 04/18/2010 07:56:00 Document Registration [id number] 04/07/2010 20:41:00 Document Registration [id number] 03/29/2010 07:42:00 Document Registration [id number] 03/23/2010 16:04:00 Document Registration [id number] 10/29/2009 16:16:00 Document Registration [id number] 09/26/2009 19:05:00 Document Registration [id number] 09/13/2009 08:11:00 Document Registration [id number] 12/07/2015 08:07:00 Document Registration [id number] 04/29/2018 11:10:00 04/29/2018 23:59:59 [facility] Outpatient HALLIE FU [facility]
[2018-05-17 19:17] LABS: BILIRUBIN,URINE NEGATIVE (NEGATIVE); CLARITY,URINE SLIGHTLY CLOUDY; COLOR,URINE YELLOW; GLUCOSE, URINE (UA) NEGATIVE (NEGATIVE); KETONES,URINE NEGATIVE (NEGATIVE); LEUKOCYTE ESTERASE ,URINE 2+ (NEGATIVE); NITRITE,URINE NEGATIVE (NEGATIVE); PH,URINE 6 (5-9); PROTEIN,URINE 1+ (NEGATIVE); UROBILINOGEN,URINE 1 MG/DL (NORMAL)
--- NOTE | 2018-05-17 19:21 | ED GU-Female ---
General Chief Complaint: -Female Stated Complaint: BLOOD IN URINE,10 WKS Nursing Triage Note: PT STATES SHE BEGAN TO EXPERIENCE LOWER ABDOMINAL PAIN AND CRAMPS AROUND 1500 TODAY. STATES SHE HAS HAD INTERMITTENT BLOODY URINE SINCE THEN, STATES SHE IS ROUGHLY 10 WEEKS WITH A HX OF MISCAIRRAGE Nursing Sepsis Screen: No Definite Risk Source: patient Exam Limitations: no limitations History of Present Illness Date Seen by Provider: May 17, 2018 Time Seen by Provider: 18:57 Initial Comments Patient presents ER by private conveyance with chief complaint of 3 hours of mild to moderate cramping in her suprapubic region radiating to her back. A little bit left worse than right. She also noted some blood in her urine but she doesn't think it came from the vagina but she's not sure. She is a with one miscarriage at 10 weeks and 0 days with an estimated due date of 12/13/18 per her ultrasound. The ultrasound was greater than 2 weeks off from her due date. She is followed by Dr. Raphael for OB. She denies any fever or chills. She took some Tylenol when the cramping started and only modest relief from it. She's fairly couple right now however. She took some Zofran and she was having some nausea and it made her nausea go away. She's had a with her previous delivery no other abdominal surgeries. Bowels are moving normally. She denies constipation or diarrhea. Last intercourse was 2 months ago. Allergies and Home Medications Allergies Coded Allergies: Iodinated Contrast- Oral and IV Dye (Unverified Allergy, Severe, ANAPHYLAXIS, 06/24/13) erythromycin base (Unverified Allergy, Severe, ANAPHYLAXIS, 06/24/13) morphine (Verified Allergy, Intermediate, NAUSEA, 06/24/13) Home Medications Docusate Sodium 100 Mg Capsule, 100 MG PO BID PRN for CONSTIPATION-1ST LINE Prescribed by: BRENTON AMEZCUA on 12/06/172049 Hydrocodone Bit/Acetaminophen 1 Tab Tab, 1-2 TAB PO Q4H PRN for PAIN-MODERATE Prescribed by: BRENTON AMEZCUA on 12/06/172049 Ibuprofen 600 Mg Tablet, 600 MG PO Q6H Prescribed by: BRENTON AMEZCUA on 12/06/172049 Ctn030/Iron Fumarate/FA/Dss 1 Each Tablet, 1 EACH PO DAILY, (Reported) Simethicone 80 Mg Tab.chew, 80 MG PO Q2H Prescribed by: ZIGGY BENEDICT on 12/08/17 1041 Patient Home Medication List Home Medication List Reviewed: Yes Review of Systems Review of Systems Constitutional: No chills, No diaphoresis, No fever EENTM: No ear discharge, No ear pain Respiratory: No cough, No short of breath Cardiovascular: No chest pain, No edema Gastrointestinal: see HPI, abdominal pain; No constipation, No diarrhea; nausea ; No vomiting Genitourinary: see HPI; denies burning, denies discharge, denies dysuria; flank pain, hematuria : Yes (Left) Expected Date of Delivery: Dec 13, 2018 Past Xxsfnaf-Nhxpcb-Vlguxc Hx Patient Social History Alcohol Use: Denies Use Recreational Drug Use: No Smoking Status: Never a Smoker 2nd Hand Smoke Exposure: No Recent Foreign Travel: No Contact w/Someone Who Travel: No Recent Infectious Disease Expo: No Recent Hopitalizations: No Immunizations Up To Date Tetanus Booster (TDap): Unknown PED Vaccines UTD: No Seasonal Allergies Seasonal Allergies: Yes Past Medical History Surgeries: Yes Eye Surgery Respiratory: Yes Asthma Currently Using CPAP: No Currently Using BIPAP: No Cardiac: No Neurological: No : Yes (10 WKS ) Reproductive Disorders: No Female Reproductive Disorders: Denies Sexually Transmitted Disease: No HIV/AIDS: No Genitourinary: No UTI-Chronic Gastrointestinal: No Chronic Constipation Musculoskeletal: No Endocrine: No HEENT: No Loss of Vision: Right Cancer: No Did You Recieve Any Treatments: No Psychosocial: No Integumentary: No Blood Disorders: No Adverse Reaction/Blood Tranf: No Family Medical History Asthma 19 MOTHER G8 SISTER Diabetes mellitus 19 MOTHER Hypertension 19 FATHER 19 MOTHER Thyroid disease 19 MOTHER No Family History of: AIDS Abdominal aortic aneurysm Basilio's disease Alcoholism Alzheimer's disease Aphasia Arthritis Cancer of mouth Cardiovascular disease Cataracts Colon cancer Completed stroke Congenital disease Congenital heart disease Coronary thrombosis Cystic fibrosis Deafness or hearing loss Dementia Drug abuse Dysphasia Fibrocystic disease of breast Gastroenteritis Glaucoma Headache disorder Hypercholesterolemia Infertility Kidney disease Myocardial infarction Neoplasm Not obtainable due to adoption Osteoporosis Parkinson's disease Prostate cancer Psychosocial problem Respiratory disorder Seizure disorder Severe allergy Tuberculosis Visual disorder Physical Exam Vital Signs Vital Signs - First Documented 05/17/18 19:00 Temp 98.3 Pulse 87 Resp 20 B/P (MAP) 108/62 (77) Pulse Ox 99 O2 Delivery Room Air Capillary Refill : Less Than 3 Seconds Height, Weight, BMI Height: 4'10.00" Weight: 125lbs. 12.0oz. [id number]; 28.5 BMI Method:Stated General Appearance: WD/WN, no apparent distress Cardiovascular: normal peripheral pulses, regular rate, rhythm, no edema Respiratory: lungs clear, normal breath sounds, no respiratory distress, no accessory muscle use Gastrointestinal: normal bowel sounds, soft, no organomegaly, tenderness ( Suprapubic region), other (. Negative for mesenteric signs.) Genital/Rectal: normal genital exam, normal vaginal exam; No blood at urethral meatus; other (cervix is closed, friable but there is no blood-tinged mucus. Vaginal mucosa unremarkable.) Pelvic: normal external exam, normal adnexa (significant), no cerv. motion tender, no masses, discharge (mucoid brown discharge, mild amount less than 5 cc.) Neurologic/Psychiatric: alert, normal mood/affect, oriented x 3 Skin: normal color, warm/dry Progress/Results/Core Measures Suspected Sepsis Recent Fever Within 48 Hours: No Infection Criteria Present: None New/Unexplained Altered Menta: No Sepsis Screen: No Definite Risk SIRS Temperature:98.3 Pulse: 87 Respiratory Rate: 20 Laboratory Tests 05/17/18 19:17: White Blood Count 8.2 Blood Pressure 108 /62 Mean: 77 Laboratory Tests 05/17/18 19:17: Creatinine 0.67, Platelet Count 183, Total Bilirubin 0.3 Results/Orders Lab Results Laboratory Tests Test 05/17/18 19:08 05/17/18 19:17 Range/Units Urine Color YELLOW Urine Clarity SLIGHTLY CLOUDY Urine pH 6 5-9 Urine Specific [place] 1.025 H 1.016-1.022 Urine Protein 1+ H NEGATIVE Urine Glucose (UA) NEGATIVE NEGATIVE Urine Ketones NEGATIVE NEGATIVE Urine Nitrite NEGATIVE NEGATIVE Urine Bilirubin NEGATIVE NEGATIVE Urine Urobilinogen 1 NORMAL MG/DL Urine Leukocyte Esterase 2+ H NEGATIVE Urine RBC (Auto) NEGATIVE NEGATIVE Urine RBC NONE /HPF Urine WBC 2-5 /HPF Urine Squamous Epithelial Cells 10-25 H /HPF Urine Crystals NONE /LPF Urine Bacteria FEW H /HPF Urine Casts NONE /LPF Urine Mucus LARGE H /LPF Urine Culture Indicated NO White Blood Count 8.2 4.3-11.0 10^3/uL Red Blood Count 4.00 L 4.35-5.85 10^6/uL Hemoglobin 12.1 11.5-16.0 G/DL Hematocrit 35 35-52 % Mean Corpuscular Volume 87 80-99 FL Mean Corpuscular Hemoglobin 30 25-34 PG Mean Corpuscular Hemoglobin Concent 35 32-36 G/DL Red Cell Distribution Width 13.4 10.0-14.5 % Platelet Count 183 130-400 10^3/uL Mean Platelet Volume 11.6 H 7.4-10.4 FL Neutrophils (%) (Auto) 68 42-75 % Lymphocytes (%) (Auto) 23 12-44 % Monocytes (%) (Auto) 6 0-12 % Eosinophils (%) (Auto) 3 0-10 % Basophils (%) (Auto) 0 0-10 % Neutrophils # (Auto) 5.6 1.8-7.8 X 10^3 Lymphocytes # (Auto) 1.9 1.0-4.0 X 10^3 Monocytes # (Auto) 0.5 0.0-1.0 X 10^3 Eosinophils # (Auto) 0.2 0.0-0.3 10^3/uL Basophils # (Auto) 0.0 0.0-0.1 10^3/uL Sodium Level 139 135-145 MMOL/L Potassium Level 3.7 3.6-5.0 MMOL/L Chloride Level 106 98-107 MMOL/L Carbon Dioxide Level 26 21-32 MMOL/L Anion Gap 7 5-14 MMOL/L Blood Urea Nitrogen 11 7-18 MG/DL Creatinine 0.67 0.60-1.30 MG/DL Estimat Glomerular Filtration Rate > 60 BUN/Creatinine Ratio 16 Glucose Level 77 70-105 MG/DL Calcium Level 9.3 8.5-10.1 MG/DL Corrected Calcium 9.3 8.5-10.1 MG/DL Total Bilirubin 0.3 0.1-1.0 MG/DL Aspartate Amino Transf (AST/SGOT) 13 5-34 U/L Alanine Aminotransferase (ALT/SGPT) 11 0-55 U/L Alkaline Phosphatase 70 40-136 U/L Total Protein 6.8 6.4-8.2 GM/DL Albumin 4.0 3.2-4.5 GM/DL Human Chorionic Gonadotropin, Quant 29280 H <5 MIU/ML My Orders Orders - TRAVIS,PRIYA J Ua Culture If Indicated (05/17/18 19:03) Urine Bedside (05/17/18 19:03) Cbc With Automated Diff (05/17/18 19:13) Comprehensive Metabolic Panel (05/17/18 19:13) Hcg,Quantitative (05/17/18 19:13) Wet Prep (05/17/18 19:52) Vital Signs/I&O 05/17/18 19:00 Temp 98.3 Pulse 87 Resp 20 B/P (MAP) 108/62 (77) Pulse Ox 99 O2 Delivery Room Air Capillary Refill : Less Than 3 Seconds Blood Pressure Mean: 77 Progress Note : Time: 19:20 Progress Note Pelvis indicating a possible miscarriage. We'll get an hCG the CBC looking for anemia and CMP just to check fluid likely balance. Patient does not appear to be any form of distress at this time. She is not wanting anything for the pain or nausea. Controlled this with Tylenol and Zofran. An ectopic is ruled out by an ultrasound transvaginal was done 3 days ago demonstrating a 1.7 cm left ovarian cyst as well as a healthy intrauterine . She has no costovertebral angle tenderness on percussion so if there is any blood in her urine a UTI is a possibility. Wet prep. Wet prep is negative Departure Impression Primary Impression: Vaginal bleeding during Disposition: 01 HOME, SELF-CARE Condition: Stable Departure-Patient Inst. Decision time for Depature: 21:15 Referrals: RAQUEL RAPHAEL MD (PCP/Family) Primary Care Physician Patient Instructions: Bleeding With (DC) Add. Discharge Instructions: Pelvic rest with nothing in the vagina for one week. Follow-up with primary care Sunday morning and request a repeat hCG. Drink plenty of fluids. Use your nausea medicine and Tylenol as necessary for pain. You can also use heat pads or warm baths. All discharge instructions reviewed with patient and/or family. Voiced understanding. PRIYA ROBLES May 17, 2018 19:21
[2018-05-17 19:24] LABS: BASOPHILS % (AUTO) 0 % (0-10); EOSINOPHILS # (AUTO) 0.2 10^3/uL (0.0-0.3); EOSINOPHILS % (AUTO) 3 % (0-10); HEMATOCRIT 35 % (35-52); HEMOGLOBIN 12.1 G/DL (11.5-16.0); LYMPHOCYTES # (AUTO) 1.9 X 10^3 (1.0-4.0); LYMPHOCYTES % (AUTO) 23 % (12-44); MEAN CORPUSCULAR HEMOGLOBIN 30 PG (25-34); MEAN CORPUSCULAR HGB CONC 35 G/DL (32-36); MEAN CORPUSCULAR VOLUME 87 FL (80-99); MEAN PLATELET VOLUME 11.6 FL (7.4-10.4); MONOCYTES # (AUTO) 0.5 X 10^3 (0.0-1.0); MONOCYTES % (AUTO) 6 % (0-12); NEUTROPHILS # (AUTO) 5.6 X 10^3 (1.8-7.8); NEUTROPHILS % (AUTO) 68 % (42-75); PLATELET COUNT 183 10^3/uL (130-400); RED CELL DISTRIBUTION WIDTH 13.4 % (10.0-14.5); WHITE BLOOD COUNT 8.2 10^3/uL (4.3-11.0)
[2018-05-17 19:28] LABS: BACTERIA,URINE FEW /HPF
[2018-05-17 19:44] LABS: ALANINE AMINOTRANSFERASE 11 U/L (0-55); ALKALINE PHOSPHATASE 70 U/L (40-136); BILIRUBIN,TOTAL 0.3 MG/DL (0.1-1.0); BUN/CREATININE RATIO 16; CALCIUM 9.3 MG/DL (8.5-10.1); CARBON DIOXIDE 26 MMOL/L (21-32); CHLORIDE 106 MMOL/L (98-107); CREATININE SERUM 0.67 MG/DL (0.60-1.30); GFR ESTIMATED > 60; GLUCOSE 77 MG/DL (70-105); POTASSIUM 3.7 MMOL/L (3.6-5.0); SODIUM 139 MMOL/L (135-145); TOTAL PROTEIN 6.8 GM/DL (6.4-8.2)
--- NOTE | 2018-05-17 19:54 | NUR ---
provider in room to assess heart tones via doppler.
[2018-05-17 21:24] VITALS: BP 103/74
== END 2018-05-17 21:24 | disposition home or self-care (01) ==
LOC: EDUNIT# 18:51 → ER 18:53
DX: O20.9 Hemorrhage in early pregnancy, unspecified (principal); O99.511 Diseases of the respiratory system complicating pregnancy, first trimester; J45.909 Unspecified asthma, uncomplicated; Z87.19 Personal history of other diseases of the digestive system; Z82.49 Family history of ischemic heart disease and other diseases of the circulatory system; Z87.440 Personal history of urinary (tract) infections; Z3A.10 10 weeks gestation of pregnancy; Z91.041 Radiographic dye allergy status; Z88.5 Allergy status to narcotic agent; Z98.890 Other specified postprocedural states
CPT/HCPCS: 36415; 80053; 81000; 84702; 84703; 85025; 87210

== ENCOUNTER → 2018-05-20 | Outpatient (CLI) | payer MEDICAID ==
--- NOTE | 2018-05-20 10:05 | Diagnostic Imaging Report ---
PROCEDURE: US OB SINGLE FETUS <14 WKS. TECHNIQUE: Multiple Real-time grayscale images were obtained over the gravid uterus in various projections. INDICATION: Vaginal bleeding. COMPARISON: Correlation is made with the prior ultrasound from 05/14/2018. FINDINGS: There is an intrauterine gestational sac containing a pole. The crown/rump length measurement is consistent with a 10 week 3 day gestation. The heart rate was recorded at 169 BPM. No perigestational sac hemorrhage is seen. The ovaries were not visualized. No adnexal mass or free fluid is seen. IMPRESSION: Single live IUP measuring approximately 10 weeks 3 days gestational age demonstrating normal interval growth when compared with the prior ultrasound. No complicating features are seen. Dictated by: Dictated on workstation # [id number]
== END ==
LOC: RAD 09:15
PROVIDERS: ATTEND Family Medicine
DX: O20.9 Hemorrhage in early pregnancy, unspecified (principal); Z3A.10 10 weeks gestation of pregnancy
CPT/HCPCS: 76801

== ENCOUNTER 2018-07-12 08:17 | Emergency (ER) | payer MEDICAID ==
[~2018-07-12] VITALS: Ht 152.4 cm; Wt 57.6 kg
--- NOTE | 2018-07-12 08:30 | ED EENT ---
History of Present Illness General Stated Complaint: DENTAL PAIN;FACIAL SWELLING Source: patient, RN/MD (Dr Hickey) Exam Limitations: no limitations History of Present Illness Date Seen by Provider: July 12, 2018 Time Seen by Provider: 08:17 Initial Comments Patient presents to ER by private conveyance with chief complaint that days ago she had a tooth extracted in front of her wisdom tooth on the left upper maxilla by the dentist at [facility] and she says while they were expecting that to the wisdom tooth came out as well. She then started having a lot of swelling today so she went back to the dentist they put a couple stitches in and said there is a bunch of fluid collection but it would not drain appropriately and so they sent her to the emergency room and said that they would call. She is on Augmentin and using hydrocodone for the pain with modest benefit. Her last dose was at 0740. She is not having any nausea fevers or chills. No drainage or discharge from the mouth or tooth sockets. The patient is 18 weeks . : Discussed the case with Dr. Juan the dentist who saw the patient Sunday where the patient had 2 teeth extractions one being a wisdom tooth on the left upper maxilla. He says the patient was seen in follow-up yesterday, when they started Augmentin for swelling. The didn't x-ray and did not see an abscess on it. There was some facial cellulitis and she was afraid there might of been an occult abscess. What concerned the dentist was when she spoke to the patient this morning she was experiencing some blurry vision on the left side. She would like us to determine if there is anything dangerous about the blurry vision and after we address that she would be willing to open the wound and see if she can draining anything. Allergies and Home Medications Allergies Coded Allergies: Iodinated Contrast- Oral and IV Dye (Unverified Allergy, Severe, ANAPHYLAXIS, 06/24/13) erythromycin base (Unverified Allergy, Severe, ANAPHYLAXIS, 06/24/13) morphine (Verified Allergy, Intermediate, NAUSEA, 06/24/13) Home Medications Docusate Sodium 100 Mg Capsule, 100 MG PO BID PRN for CONSTIPATION-1ST LINE Prescribed by: BRENTON AMEZCUA on 12/06/172049 Hydrocodone Bit/Acetaminophen 1 Tab Tab, 1-2 TAB PO Q4H PRN for PAIN-MODERATE Prescribed by: BRENTON AMEZCUA on 12/06/172049 Ibuprofen 600 Mg Tablet, 600 MG PO Q6H Prescribed by: BRENTON AMEZCUA on 12/06/172049 Msv991/Iron Fumarate/FA/Dss 1 Each Tablet, 1 EACH PO DAILY, (Reported) Simethicone 80 Mg Tab.chew, 80 MG PO Q2H Prescribed by: ZIGGY BENEDICT on 12/08/17 1041 Patient Home Medication List Home Medication List Reviewed: Yes Review of Systems Review of Systems Constitutional: No chills, No diaphoresis Eyes: Denies Blindness; Blurred Vision; Denies Foreign Body Sensation, Denies Inflammation, Denies Pain, Denies Photophobia, Denies Shadows Ears: Denies Dizziness, Denies Pain Nose: denies clots, denies congestion Mouth: see HPI, pain, swelling Throat: denies pain, denies swelling Respiratory: No cough, No phlegm Past Dhpwibg-Kqxhzu-Majlam Hx Patient Social History Alcohol Use: Denies Use Recreational Drug Use: No Smoking Status: Never a Smoker 2nd Hand Smoke Exposure: No Recent Hopitalizations: No Immunizations Up To Date Tetanus Booster (TDap): Unknown PED Vaccines UTD: No Seasonal Allergies Seasonal Allergies: Yes Past Medical History Surgeries: Yes Section, Eye Surgery Respiratory: Yes Asthma Currently Using CPAP: No Currently Using BIPAP: No Cardiac: No Neurological: No Reproductive Disorders: No Female Reproductive Disorders: Denies Sexually Transmitted Disease: No HIV/AIDS: No Genitourinary: No UTI-Chronic Gastrointestinal: No Chronic Constipation Musculoskeletal: No Endocrine: No HEENT: No Loss of Vision: Right Cancer: No Did You Recieve Any Treatments: No Psychosocial: No Integumentary: No Blood Disorders: No Adverse Reaction/Blood Tranf: No Family Medical History Asthma 19 MOTHER G8 SISTER Diabetes mellitus 19 MOTHER Hypertension 19 FATHER 19 MOTHER Thyroid disease 19 MOTHER No Family History of: AIDS Abdominal aortic aneurysm Basilio's disease Alcoholism Alzheimer's disease Aphasia Arthritis Cancer of mouth Cardiovascular disease Cataracts Colon cancer Completed stroke Congenital disease Congenital heart disease Coronary thrombosis Cystic fibrosis Deafness or hearing loss Dementia Drug abuse Dysphasia Fibrocystic disease of breast Gastroenteritis Glaucoma Headache disorder Hypercholesterolemia Infertility Kidney disease Myocardial infarction Neoplasm Not obtainable due to adoption Osteoporosis Parkinson's disease Prostate cancer Psychosocial problem Respiratory disorder Seizure disorder Severe allergy Tuberculosis Visual disorder Physical Exam Vital Signs Vital Signs - First Documented 5/10/19 08:25 Temp 97.4 Pulse 92 Resp 20 B/P (MAP) 117/68 (84) Pulse Ox 99 O2 Delivery Room Air Height, Weight, BMI Height: 4'10.00" Weight: 125lbs. 12.0oz. [id number]; 28.5 BMI Method:Stated General Appearance: WD/WN, mild distress Eyes: bilateral eye normal inspection, bilateral eye PERRL, bilateral eye EOMI Ears: bilateral ear auricle normal, bilateral ear canal normal, bilateral ear TM normal Nose: normal inspection; No active bleeding Mouth/Throat: dental tenderness, maxillary swelling; No tongue swollen, No tonsillar exudate, No tonsillar swelling; other (left upper maxillary molar socket is swollen, mildly erythematous but no discharge noted.) Cardiovascular: normal peripheral pulses, regular rate, rhythm Respiratory: no respiratory distress, no accessory muscle use Neurologic/Psychiatric: alert, oriented x 3 Skin: normal color, warm/dry, other (erythematous swelling of the left cheek and below the eye) Progress/Results/Core Measures Results/Orders Lab Results Laboratory Tests Test 07/12/18 08:55 Range/Units White Blood Count 6.5 4.3-11.0 10^3/uL Red Blood Count 3.63 L 4.35-5.85 10^6/uL Hemoglobin 11.5 11.5-16.0 G/DL Hematocrit 33 L 35-52 % Mean Corpuscular Volume 90 80-99 FL Mean Corpuscular Hemoglobin 32 25-34 PG Mean Corpuscular Hemoglobin Concent 35 32-36 G/DL Red Cell Distribution Width 13.5 10.0-14.5 % Platelet Count 148 130-400 10^3/uL Mean Platelet Volume 11.7 H 7.4-10.4 FL Neutrophils (%) (Auto) 71 42-75 % Lymphocytes (%) (Auto) 18 12-44 % Monocytes (%) (Auto) 8 0-12 % Eosinophils (%) (Auto) 3 0-10 % Basophils (%) (Auto) 0 0-10 % Neutrophils # (Auto) 4.6 1.8-7.8 X 10^3 Lymphocytes # (Auto) 1.2 1.0-4.0 X 10^3 Monocytes # (Auto) 0.5 0.0-1.0 X 10^3 Eosinophils # (Auto) 0.2 0.0-0.3 10^3/uL Basophils # (Auto) 0.0 0.0-0.1 10^3/uL Sodium Level 136 135-145 MMOL/L Potassium Level 3.8 3.6-5.0 MMOL/L Chloride Level 106 98-107 MMOL/L Carbon Dioxide Level 20 L 21-32 MMOL/L Anion Gap 10 5-14 MMOL/L Blood Urea Nitrogen 6 L 7-18 MG/DL Creatinine 0.48 L 0.60-1.30 MG/DL Estimat Glomerular Filtration Rate > 60 BUN/Creatinine Ratio 13 Glucose Level 82 70-105 MG/DL Calcium Level 9.2 8.5-10.1 MG/DL Corrected Calcium 9.5 8.5-10.1 MG/DL Total Bilirubin 0.6 0.1-1.0 MG/DL Aspartate Amino Transf (AST/SGOT) 11 5-34 U/L Alanine Aminotransferase (ALT/SGPT) 12 0-55 U/L Alkaline Phosphatase 76 40-136 U/L C-Reactive Protein High Sensitivity 5.65 H 0.00-0.50 MG/DL Total Protein 6.6 6.4-8.2 GM/DL Albumin 3.6 3.2-4.5 GM/DL My Orders Orders - PRIYA ROBLES Ceftriaxone For Iv Use (Rocephin For I (07/12/18 09:00) Cbc With Automated Diff (07/12/18 08:55) Comprehensive Metabolic Panel (07/12/18 08:55) Hs C Reactive Protein (07/12/18 08:55) Medications Given in ED Current Medications Medications Dose Ordered Sig/Giovanni Route Start Time Stop Time Status Last Admin Dose Admin Ceftriaxone Sodium 1000 mg/ Sterile Water 10 ml @ 200 mls/hr ONCE ONCE IV 07/12/18 09:00 07/12/18 09:02 DC 07/12/18 09:25 200 MLS/HR Vital Signs/I&O 07/12/18 08:25 Temp 97.4 Pulse 92 Resp 20 B/P (MAP) 117/68 (84) Pulse Ox 99 O2 Delivery Room Air Progress Progress Note #1: Time: 08:52 Progress Note Typically I would obtain a CT of the face or evidence of retrobulbar abscess. Patient of 18 weeks and a IV contrast allergy which causes itching. We could premedicate her and given to her anyways regardless if we thought necessary. We'll check some basic labs. Her vital signs are aseptic. We'll get a visual acuity screen. There is nothing anatomically wrong on external clinical exam with her left eye. No erythema or injection. We discussed the risks, benefits and alternatives to imaging or not. 1 g or Rocephin IV. Progress Note #2: Time: 09:58 Progress Note White count is 6000, CRP is only marginal and the patient has no double vision. Her visual acuity screening is 20/20 in her unaffected eye right and 20/30 in her affected eye with 20/20 bilateral. We have again discussed the risks, benefits and alternatives and suggested to her that the risk of the CT plus medications to do IV contrast probably outweighs the benefit of doing it and that the best way to treat this would be to go back to the dentist and get it drained. I discussed the case again with the dentist and she says it we will send her back to the office she will get it drained today. The patient has received her Rocephin. She has chronic pain medicines. We have given strict return precautions. Departure Impression Primary Impression: Dental abscess Additional Impression: Facial cellulitis Disposition: 01 HOME, SELF-CARE Condition: Stable Departure-Patient Inst. Decision time for Depature: 09:59 Referrals: RAQUEL RAPHAEL MD (PCP/Family) Primary Care Physician Patient Instructions: Tooth Abscess (DC) Add. Discharge Instructions: Please go back to the dentist today immediately from the ER and get set up to have a abscess drained. Continue to take your Augmentin twice a day with food. Use your hydrocodone as prescribed. Return to the ER if you have double vision, intense pain not treated by hydrocodone, intractable nausea vomiting, fever above 102.5 or other worrisome symptoms. Ice alternate with warm compresses to the face can be helpful for the swelling and pain. Work/School Note: Work Release Form Date Seen in the Emergency Department: July 12, 2018 Return to Work: July 15, 2018 Restrictions: No Restrictions PRIYA ROBLES July 12, 2018 08:30
[2018-07-12] MEDS ORDERED: cefTRIAXone FOR IV USE 1,000 MG in WATER (STERILE) FOR INJECTION 10 ML IV ONE (09:00)
[2018-07-12 09:11] LABS: BASOPHILS % (AUTO) 0 % (0-10); EOSINOPHILS # (AUTO) 0.2 10^3/uL (0.0-0.3); EOSINOPHILS % (AUTO) 3 % (0-10); HEMATOCRIT 33 % (35-52); HEMOGLOBIN 11.5 G/DL (11.5-16.0); LYMPHOCYTES # (AUTO) 1.2 X 10^3 (1.0-4.0); LYMPHOCYTES % (AUTO) 18 % (12-44); MEAN CORPUSCULAR HEMOGLOBIN 32 PG (25-34); MEAN CORPUSCULAR HGB CONC 35 G/DL (32-36); MEAN CORPUSCULAR VOLUME 90 FL (80-99); MEAN PLATELET VOLUME 11.7 FL (7.4-10.4); MONOCYTES # (AUTO) 0.5 X 10^3 (0.0-1.0); MONOCYTES % (AUTO) 8 % (0-12); NEUTROPHILS # (AUTO) 4.6 X 10^3 (1.8-7.8); NEUTROPHILS % (AUTO) 71 % (42-75); PLATELET COUNT 148 10^3/uL (130-400); RED CELL DISTRIBUTION WIDTH 13.5 % (10.0-14.5); WHITE BLOOD COUNT 6.5 10^3/uL (4.3-11.0)
[2018-07-12 09:38] LABS: ALANINE AMINOTRANSFERASE 12 U/L (0-55); ALBUMIN 3.6 GM/DL (3.2-4.5); ALKALINE PHOSPHATASE 76 U/L (40-136); BILIRUBIN,TOTAL 0.6 MG/DL (0.1-1.0); BUN/CREATININE RATIO 13; CALCIUM 9.2 MG/DL (8.5-10.1); CARBON DIOXIDE 20 MMOL/L (21-32); CHLORIDE 106 MMOL/L (98-107); CREATININE SERUM 0.48 MG/DL (0.60-1.30); GFR ESTIMATED > 60; GLUCOSE 82 MG/DL (70-105); POTASSIUM 3.8 MMOL/L (3.6-5.0); SODIUM 136 MMOL/L (135-145); TOTAL PROTEIN 6.6 GM/DL (6.4-8.2)
[2018-07-12 10:10] VITALS: BP 98/65
== END 2018-07-12 10:10 | disposition home or self-care (01) ==
LOC: EDUNIT# 08:17 → ER 08:18
DX: O99.89 Other specified diseases and conditions complicating pregnancy, childbirth and the puerperium (principal); K04.7 Periapical abscess without sinus; L03.211 Cellulitis of face; O99.512 Diseases of the respiratory system complicating pregnancy, second trimester; J45.909 Unspecified asthma, uncomplicated; Z87.19 Personal history of other diseases of the digestive system; Z87.440 Personal history of urinary (tract) infections; Z98.890 Other specified postprocedural states; Z91.041 Radiographic dye allergy status; Z88.5 Allergy status to narcotic agent; Z3A.18 18 weeks gestation of pregnancy
CPT/HCPCS: 36415; 80053; 85025; 86141; 96365

== ENCOUNTER → 2018-07-19 | Outpatient (CLI) | payer MEDICAID ==
--- NOTE | 2018-07-19 11:48 | Diagnostic Imaging Report ---
INDICATION: survey. TECHNIQUE: Multiple real-time grayscale images were obtained over the gravid uterus. COMPARISON: 05/20/2018. FINDINGS: There is a single live fetus in a cephalic presentation. Placenta is anterior. Amniotic fluid volume is normal. heart rate was recorded at 146 beats per minute. Cervical length is 4.5 cm. survey demonstrates minimal dilatation of the right renal pelvis of approximately 4 mm. Bladder and stomach are unremarkable. brain is unremarkable. There is a four-chamber heart. There is a three-vessel cord with normal insertion. spine is unremarkable, although the cervical spine was not well visualized today. Biometrical measurements are as follows: Biparietal 4.31 cm, age 19 weeks 1 days. Head circumference 16.87 cm, age 19 weeks 4 days. Abdominal circumference 14.13 cm, age 19 weeks 4 days. Femur length 2.44 cm, age 17 weeks 3 days. Sonographic estimate age: 19 weeks 0 days. Sonographic estimated date of delivery: 12/13/2018. Estimated Weight: 249 gm (+/- 36 gm). LMP percentile: 24%. heart rate: 146 beats per minute. number: 1 of 1. IMPRESSION: Single live IUP of 19 weeks 0 days gestational age demonstrating normal interval growth when compared with prior exam. No complicating features are seen. The survey is unremarkable, although there is minimal prominence of the right renal pelvis. In addition, cervical spine was not well visualized today and followup could be performed. Dictated by: Dictated on workstation # [id number]
== END ==
LOC: RAD 09:30
PROVIDERS: ATTEND Family Medicine
DX: Z36.89 Encounter for other specified antenatal screening (principal); Z3A.19 19 weeks gestation of pregnancy
CPT/HCPCS: 76805

== ENCOUNTER → 2018-09-03 | Outpatient (CLI) | payer MEDICAID ==
--- NOTE | 2018-09-03 12:01 | Diagnostic Imaging Report ---
INDICATION: Evaluate cervical spine TECHNIQUE: Multiple real-time grayscale images were obtained over the gravid uterus. COMPARISON: 07/19/2018 FINDINGS: There is a single living intrauterine in cephalic presentation. The amniotic fluid index is 18. Placenta is anterior. No previa. Heart rate is 140 beats per minute. Dedicated evaluation of the cervical spine was performed. This is within normal limits. Kidneys are also normal. IMPRESSION: Reevaluation of the cervical spine is unremarkable. Biometrical measurements are as follows: Biparietal cm, age weeks days. Head circumference cm, age weeks days. Abdominal circumference cm, age weeks days. Femur length cm, age weeks days. Sonographic estimate age: weeks days. Sonographic estimated date of delivery: . Estimated Weight: gm (+/- gm). LMP percentile: %. heart rate: beats per minute. number: of . IMPRESSION: Dictated by: Dictated on workstation # [id number]
== END ==
LOC: RAD 09:48
PROVIDERS: ATTEND Family Medicine
DX: Z36.89 Encounter for other specified antenatal screening (principal); Z3A.00 Weeks of gestation of pregnancy not specified
CPT/HCPCS: 76816

== ENCOUNTER 2018-11-29 05:29 | Outpatient (CLI) | payer MEDICAID ==
[~2018-11-29] VITALS: Ht 152.4 cm; Wt 63.6 kg
== END 2018-11-29 09:49 | disposition home or self-care (01) ==
LOC: PREOP 05:29
PROVIDERS: ATTEND Obstetrics & Gynecology
DX: Z01.818 Encounter for other preprocedural examination (principal)

== ENCOUNTER 2018-12-06 06:00 | Inpatient (IN) | payer MEDICAID ==
[2018-12-06] VITALS (10 sets, daily range): BP systolic 99–113; BP diastolic 55–78
[~2018-12-06] VITALS: Ht 5 cm; Wt 66.9 kg
[~2018-12-06 06:00] MED LIST changes: +CITRIC ACID/SOB CIT (BICITRA) 30 ML UDC ONE; +FAMOTIDINE 20MG/2ML IV (PEPCID) ONE; +LACTATED RINGERS 2,000 ML IV ONE; +METOCLOPRAMIDE INJ 10 MG/2 ML (REGLAN) ONE
[2018-12-06] MEDS ORDERED: metroNIDAZOLE 500MG/100ML IVPB 100 ML ONE (06:08)
[2018-12-06] MEDS ORDERED: ceFAZolin 2 GM/50 ML NS 50 ML ONE (06:09)
[2018-12-06] MEDS ORDERED: D5 LR IV SOLUTION 1,000 ML IV SCH (06:10)
--- NOTE | 2018-12-06 06:10 | NUR ---
PATRICIO HOPKINS presented to unit via AMBULATORY from ED, accompanied by FAMILY , with c/o PREVIOUS C/S OPERATIVE DAY. PATRICIO HOPKINS weighed, gowned, voided, and to bed. EFHM and TOCO applied, VS taken PER ESTELA CARVALHO. PATRICIO HOPKINS oriented to bed controls, call light, TV, heat, and A/C controls. PREOP TO CONT PER ESTELA CARVALHO.
[2018-12-06] MEDS ORDERED: LACTATED RINGERS 1,000 ML IV PRN ×2 (06:15)
[2018-12-06] MEDS ORDERED: MEASLES,MUMPS,RUBELLA 1 EA INJ SC ONE (06:15)
[2018-12-06] MEDS ORDERED: METOCLOPRAMIDE INJ 10 MG/2 ML (REGLAN) IV ONE (06:15)
[2018-12-06] MEDS ORDERED: metroNIDAZOLE 500MG/100ML IVPB 100 ML IV ONE ×2 (06:15)
[2018-12-06] MEDS ORDERED: TETANUS,DIPTH,PERTUSS P/F (BOOSTRIX) 0.5 ML VIAL IM ONE (06:15)
[2018-12-06] MEDS ORDERED: CITRIC ACID/SOB CIT (BICITRA) 30 ML UDC PO ONE (06:15)
[2018-12-06] MEDS ORDERED: ONDANSETRON 4 MG/2 ML (SDV) Z0FRAN IVP PRN (06:15)
[2018-12-06] MEDS ORDERED: ceFAZolin 2 GM/50 ML NS 50 ML IV ONE ×2 (06:15→07:00)
[2018-12-06] MEDS ORDERED: FAMOTIDINE 20MG/2ML IV (PEPCID) IV ONE (06:15)
[2018-12-06 06:27] LABS: BASOPHILS % (AUTO) 0 % (0-10); EOSINOPHILS # (AUTO) 0.2 10^3/uL (0.0-0.3); EOSINOPHILS % (AUTO) 3 % (0-10); HEMATOCRIT 33 % (35-52); HEMOGLOBIN 10.9 G/DL (11.5-16.0); LYMPHOCYTES # (AUTO) 1.9 X 10^3 (1.0-4.0); LYMPHOCYTES % (AUTO) 22 % (12-44); MEAN CORPUSCULAR HEMOGLOBIN 29 PG (25-34); MEAN CORPUSCULAR HGB CONC 33 G/DL (32-36); MEAN CORPUSCULAR VOLUME 87 FL (80-99); MEAN PLATELET VOLUME 10.6 FL (7.4-10.4); MONOCYTES # (AUTO) 0.7 X 10^3 (0.0-1.0); MONOCYTES % (AUTO) 8 % (0-12); NEUTROPHILS # (AUTO) 5.7 X 10^3 (1.8-7.8); NEUTROPHILS % (AUTO) 67 % (42-75); PLATELET COUNT 210 10^3/uL (130-400); RED CELL DISTRIBUTION WIDTH 13.6 % (10.0-14.5); WHITE BLOOD COUNT 8.5 10^3/uL (4.3-11.0)
[2018-12-06] MEDS ORDERED: fentaNYL INJECTION 100 MCG/2 ML AMP ONE (06:58)
[2018-12-06] MEDS ORDERED: KETAMINE/NaCl 50 MG/5 ML SYRINGE ONE (07:03)
--- NOTE | 2018-12-06 07:12 | NUR ---
Pt ambulates to OB OR accompanied by JACQUARD LOOM CARD CHANGER. No s/s of distress noted.
[2018-12-06] MEDS ORDERED: KETOROLAC 30 MG/ML VIAL ONE (07:51)
[2018-12-06] MEDS ORDERED: ONDANSETRON 4 MG/2 ML (SDV) Z0FRAN ONE (07:51)
[2018-12-06] MEDS ORDERED: PHENYLEPHRINE 100 MCG/ML 10 ML (ANESTHESIA) SYR ONE (07:51)
[2018-12-06] MEDS ORDERED: BUPIVACAINE 0.5% 30 ML (SENSORCAINE) VIAL ONE (07:55)
[2018-12-06] MEDS ORDERED: DOCUSATE SODIUM 100 MG (COLACE) CAP PO SCH (09:00)
--- NOTE | 2018-12-06 09:05 | NUR ---
Pt to room 307 via bed accompanied by OB staff without incident. Calf SCD's on and activated. Pt and family oriented to room and call light. packet and room servcie explained to pt. Fresh ice water provided.
[2018-12-06] MEDS: OXYTOCIN/NORMAL SALINE 500 ML IV SCH (09:31)
--- NOTE | 2018-12-06 12:00 | NUR ---
TO ROOM TO ANSWER CALL LIGHT. PT VERBALIZES URGE TO VOID. PT ASSISTED TO STANDING POSITION AT SIDE OF BED AND ASSISTED TO BATHROOM WITHOUT INCIDENT. + VOID, CLEAR YELLOW URINE NOTED. PT ASSISTED BACK TO BED WITHOUT DIFFICULTY, SCD'S REACTIVATED. NO FURTHER NEEDS VOICED AT THIS TIME.
[2018-12-06] MEDS: oxyCODONE/APAP 10/325MG (PERCOCET 10) TABLET PO PRN ×2 (13:37→20:31)
--- NOTE | 2018-12-06 14:33 | OPERATIVE REPORT ---
DATE OF SERVICE: 12/06/2018 PREOPERATIVE DIAGNOSIS: Term at 39+ weeks' gestation with previous section. POSTOPERATIVE DIAGNOSIS: Term at 39+ weeks' gestation with previous section. OPERATIVE PROCEDURE: Repeat low transverse delivery of a viable male infant with Apgars of 8 and 9 at 1 and 5 minutes respectively, weight of 5 pounds 15 ounces, time of 0737 and a cord blood pH of 7.37. BENDING FRAME OPERATOR FOR DELIVERY: Dr. Vera. EXERCISE SCIENTIST FOR DELIVERY: Dr. Vera. OPERATIVE DESCRIPTION: With the patient in supine position under satisfactory spinal anesthesia, she was prepped and draped in the usual fashion for abdominal surgery. Dhillon catheter was placed in the urinary bladder. A Pfannenstiel incision then made through the skin with a scalpel at the site of the patient's previous Pfannenstiel incision. The abdomen was entered in the usual manner. Bladder retractor placed in position, clean scalpel used to make a 4 cm hysterotomy incision transversely across the lower uterine segment. That incision was extended bluntly. Copious clear fluid was released on hysterotomy. Squires forceps were applied to facilitate the delivery of a vigorous viable male infant with Apgars and stats as noted above. The infant was bulb suctioned on delivery of the head and again on completion of delivery, the umbilical cord was doubly clamped and cut and Dr. Vera took the infant to the warmer. Cord bloods were obtained. Placenta delivered spontaneously Nicholas. It was normal with a 3-vessel cord. The uterus was exteriorized and interior wiped clean with a wet laparotomy sponge. Uterine incision closed with running locked suture of 2-0 Vicryl. Hemostasis was complete. The uterus was returned to abdominal cavity. All blood clot and debris removed from the abdominal cavity. With sponge and needle counts correct, hemostasis assured. The anterior parietal peritoneum was closed with running suture of 2-0 Vicryl. Rectus muscles were closed in a separate layer with that same suture. The rectus fascia was closed with 2-0 Vicryl, subcutaneous tissue was closed with 2-0 Vicryl and the skin was stapled. Sponge and needle counts were correct on completion of the delivery. Estimated blood loss was around 500 mL. The patient tolerated the procedure well and was transferred to the recovery room in stable condition. The infant was taken stable to the full term nursery under the care of the pediatric nurse and Dr. Vera. Job ID: [id number] DocumentID: [id number] Dictated Date: 12/06/2018 08:17:36 Ornamental Metal Erector Apprentice Date: 12/06/2018 14:33:03 Dictated By: DMITRY FREEMAN MD
[2018-12-06] MEDS: KETOROLAC 30 MG/ML VIAL IVP PRN ×2 (14:42→21:33)
[2018-12-06] MEDS ORDERED: FLU QUADRIvalent (5+ YOA) 2019-2020 (AFLURIA) 0.5 ML IM ONE (17:00)
--- NOTE | 2018-12-06 20:00 | NUR ---
pt has visitors at this time.
--- NOTE | 2018-12-06 20:20 | NUR ---
pt sitting in bed requesting pain medications, scd's on and inplace, fresh ice water given, pt able to void without difficulty, s.o. at bedside. plan of care discussed.
[2018-12-06] MEDS: DOCUSATE SODIUM 100 MG (COLACE) CAP PO SCH (20:31)
--- NOTE | 2018-12-06 21:30 | NUR ---
pt sitting up holding baby at this time.
[2018-12-07] MEDS: OXYTOCIN/NORMAL SALINE 500 ML IV SCH (00:12)
[2018-12-07 02:07] VITALS: BP 120/71
[2018-12-07] MEDS: oxyCODONE/APAP 10/325MG (PERCOCET 10) TABLET PO PRN ×4 (03:57→21:57)
[2018-12-07 05:09] VITALS: BP 105/75
[2018-12-07 08:00] VITALS: BP 111/67
--- NOTE | 2018-12-07 09:25 | Progress Note ---
Standard Progress Note Progress Notes/Assess & Plan Date Seen by a Provider: Dec 07, 2018 Time Seen by a Provider: 09:25 Progress/Assessment & Plan This patient is without complaint. She is ambulating, voiding, tolerating oral intake well has good pain control. Vital Signs Date Time Temp Pulse Resp B/P (MAP) Pulse Ox O2 Delivery O2 Flow Rate FiO2 12/07/18 05:09 37.0 93 18 105/75 (85) 98 Room Air 12/07/18 02:07 36.4 95 18 120/71 (87) 99 Room Air 12/06/18 21:30 36.6 92 16 108/62 (77) 96 Room Air 12/06/18 18:00 36.6 76 16 111/67 (82) 99 Room Air 12/06/18 14:39 37.0 84 18 100/61 (74) 99 Room Air 12/06/18 10:30 36.5 83 18 113/76 (88) 99 Room Air 12/06/18 09:32 36.4 74 16 112/71 (85) 99 Room Air I & O 12/07/18 07:00 Intake Total 6150 ml Output Total 3630 ml Balance 2520 ml Vital signs are stable. Patient is afebrile. The abdomen is benign surgical incision is clean dry and intact. Extremities show no clubbing cyanosis. No Homans sign. Assessment and plan postoperative day number 1 status post repeat doing well. Plan is for routine convalescence care today and likely discharge home tomorrow DMITRY FREEMAN MD Dec 07, 2018 09:25
[2018-12-07] MEDS ORDERED: FLU QUADRIvalent (5+ YOA) 2019-2020 (AFLURIA) 0.5 ML IM ONE (10:04)
[2018-12-07] MEDS ORDERED: TETANUS,DIPTH,PERTUSS P/F (BOOSTRIX) 0.5 ML VIAL IM ONE (10:04)
[2018-12-07] MEDS: DOCUSATE SODIUM 100 MG (COLACE) CAP PO SCH ×2 (10:08→20:16)
[2018-12-07] MEDS: D5 LR IV SOLUTION 1,000 ML IV SCH ×3 (10:08→13:05)
[2018-12-07 12:00] VITALS: BP 113/71
--- NOTE | 2018-12-07 14:55 | NUR ---
Report received from Kary CARVALHO
--- NOTE | 2018-12-07 15:45 | NUR ---
Pt up to shower. linens changed.
[2018-12-07 15:48] VITALS: BP 115/70
[2018-12-07] MEDS: MUPIROCIN 2% OINT 22 GM (BACTROBAN) TUBE NSEACH SCH ×2 (15:50→20:22)
--- NOTE | 2018-12-07 16:27 | Anesthesia-Regional Post-Op ---
Regional Patient Condition Mental Status: Alert, Oriented x3 Circulation: Same as Pre-Op Headache: Absent Sensation: Full Recovery Motor Block: Absent Post Op Complications Complications None Follow Up Care/Instructions Patient Instructions None needed. Anesthesia/Patient Condition Patient is doing well, no complaints, stable vital signs, no apparent adverse anesthesia problems. No complications reported per nursing. MARIA D HOWARD CRNA Dec 07, 2018 16:27
[2018-12-07] MEDS ORDERED: IBUPROFEN 800 MG (MOTRIN) TAB PO ONE (16:38)
[2018-12-07] MEDS: IBUPROFEN 800 MG (MOTRIN) TAB PO SCH ×2 (19:23→21:57)
[2018-12-07 20:26] VITALS: BP 108/65
--- NOTE | 2018-12-07 20:34 | NUR ---
pt resting in bed, holding nb. pads, wipes given per pt's request. assessment completed. no distress noted. will continue to monitor. s/o at bedside, resting with eyes closed.
[2018-12-08] MEDS: oxyCODONE/APAP 10/325MG (PERCOCET 10) TABLET PO PRN ×2 (02:23→12:13)
[2018-12-08 02:26] VITALS: BP 124/80
[2018-12-08] MEDS: IBUPROFEN 800 MG (MOTRIN) TAB PO SCH ×2 (05:59→12:13)
--- NOTE | 2018-12-08 09:15 | NUR ---
here. dismissal orders received.
[2018-12-08 09:30] VITALS: BP 108/69
--- NOTE | 2018-12-08 09:30 | NUR ---
initial shift assessment completed, see interventions for further.
[2018-12-08] MEDS: DOCUSATE SODIUM 100 MG (COLACE) CAP PO SCH (09:31)
--- NOTE | 2018-12-08 09:31 | Progress Note ---
Standard Progress Note Progress Notes/Assess & Plan Date Seen by a Provider: Dec 08, 2018 Time Seen by a Provider: 09:30 Progress/Assessment & Plan This patient is without complaint. She is ambulating, voiding, tolerating oral intake well has good pain control. Vital Signs Date Time Temp Pulse Resp B/P (MAP) Pulse Ox O2 Delivery O2 Flow Rate FiO2 12/07/18 05:09 37.0 93 18 105/75 (85) 98 Room Air 12/07/18 02:07 36.4 95 18 120/71 (87) 99 Room Air 12/06/18 21:30 36.6 92 16 108/62 (77) 96 Room Air 12/06/18 18:00 36.6 76 16 111/67 (82) 99 Room Air 12/06/18 14:39 37.0 84 18 100/61 (74) 99 Room Air 12/06/18 10:30 36.5 83 18 113/76 (88) 99 Room Air 12/06/18 09:32 36.4 74 16 112/71 (85) 99 Room Air I & O 12/07/18 07:00 Intake Total 6150 ml Output Total 3630 ml Balance 2520 ml Vital signs are stable. Patient is afebrile. The abdomen is benign surgical incision is clean dry and intact. Extremities show no clubbing cyanosis. No Homans sign. Assessment and plan postoperative day number 1 status post repeat doing well. Plan is for routine convalescence care today and likely discharge home tomorrow December 08, 2018 Patient is without complaint. She is ablating, voiding, tolerating oral intake well and is requesting discharge home. Vital Signs Date Time Temp Pulse Resp B/P (MAP) Pulse Ox O2 Delivery O2 Flow Rate FiO2 12/08/18 02:26 36.6 81 18 124/80 (95) Room Air 12/07/18 20:28 Room Air 12/07/18 20:26 36.6 94 18 108/65 (79) Room Air 12/07/18 15:48 37.3 95 18 115/70 (85) 98 Room Air 12/07/18 12:00 36.5 89 18 113/71 (85) 94 Room Air I & O 12/08/18 07:00 Output Total 800 ml Balance -800 ml Vital signs are stable. Patient is afebrile. The abdomen is benign. The surgical incision is clean dry and intact. Extremities show no clubbing cyanosis. There is no Homans sign. Assessment and plan postoperative day number 2 status post repeat delivery at 39 weeks gestation. Patient is doing well and will be discharged home with follow-up in clinic Final Diagnosis Repeat at 39 weeks gestation DMITRY FREEMAN MD Dec 08, 2018 09:31
[2018-12-08] MEDS ORDERED: DOCU100C37 PO (10:45)
[2018-12-08] MEDS ORDERED: IBUP-1780 PO (10:45)
[2018-12-08] MEDS ORDERED: OXYC1TAB12 PO (10:45)
--- NOTE | 2018-12-08 10:47 | Discharge Instructions ---
Discharge Instructions Discharge Medications New, Converted or Re-Newed RX: RX on Chart Patient Instructions Return to The Hospital For: DIRECTED Activity & Diet Discharge Diet: No Restrictions Activity as Tolerated: No Orders-Post D/C & Referrals Follow Up Appt: RTC on , December 12, 2018 at 930 a.m. for incision check Call to make follow up appt. with Dr. Vera for patient in 6 weeks. Wound Care: Remove kristy, apply benzoin and steri strips. Activity Per routine post instructions. Please call in RX to patient pharmacy. Diet as tolerated Patient may shower or tub bathe as desired. Continue home meds DMITRY FREEMAN MD Dec 08, 2018 10:47
--- NOTE | 2018-12-08 11:54 | NUR ---
Rx's called into [facility] pharmacy per pt's request.
--- NOTE | 2018-12-08 12:05 | NUR ---
kristy dc'd per Dr's orders. incision edge well approximated, no sx's of infection noted. Benzoine and steri-strips applied. reviewed incision care and follow up appointment.
--- NOTE | 2018-12-08 13:49 | NUR ---
dismissal instructions given, verbalizes understanding. reviewed dismissal medications and administration schedule. instructed pt to schedule 6 week follow up appointment with . signature page signed, placed on chart.
--- NOTE | 2018-12-08 14:00 | NUR ---
pt ambulated to private vehicle with this RN and @ side. infant secured in rear facing car seat. pt stable upon dismissal.
[2018-12-11] MEDS ORDERED: IBUPROFEN 800 MG (MOTRIN) TAB PO SCH (12:00)
== END 2018-12-08 14:00 | disposition home or self-care (01) | DRG 788 ==
LOC: LDRP 06:00
PROVIDERS: ADMIT Obstetrics & Gynecology; ATTEND Obstetrics & Gynecology
PROC: 10D00Z1 Extraction of Products of Conception, Low, Open Approach (ICD-10-PCS; principal; 2018-12-06 07:15)
DX: O34.211 Maternal care for low transverse scar from previous cesarean delivery (principal); Z3A.39 39 weeks gestation of pregnancy; Z37.0 Single live birth; Z28.82 Immunization not carried out because of caregiver refusal
CPT/HCPCS: 36415; 85025; 86850; 86900; 86901; 87081; 88307; 90715; 94664

== ENCOUNTER → 2019-07-04 | Outpatient (CLI) | payer MEDICAID ==
[~2019-07-04] MED LIST changes: -CITRIC ACID/SOB CIT (BICITRA) 30 ML UDC ONE; -FAMOTIDINE 20MG/2ML IV (PEPCID) ONE; +IBUP-1780 PO; -LACTATED RINGERS 2,000 ML IV ONE; -METOCLOPRAMIDE INJ 10 MG/2 ML (REGLAN) ONE
--- NOTE | 2019-07-04 13:09 | Diagnostic Imaging Report ---
INDICATION: Abnormal uterine bleeding. EXAMINATION: Pelvic sonography performed in transabdominal and transvaginal views. FINDINGS: The uterus measured 8.1 x 3.6 x 6.1 cm. There is no uterine mass. Endometrium measured 8 mm in thickness. There is a trace of fluid in the endometrium as well as in the cervix. There is a minimal 2 x 3 mm cystic area in the endometrial lining. The right ovary measured 3.8 x 2.3 x 3.0 cm and contains color flow. There is a 2.0 x 2.1 x 1.7 cm cystic structure in the right ovary, with the appearance of a simple cyst. The left ovary is 2.6 x 1.9 x 2.0 cm and contained color flow and appeared normal. There was no free fluid. IMPRESSION: Normal-sized uterus with no myometrial lesions. There is a trace of fluid in the endometrium which may represent blood given the patient's history. There is a small 3 x 2 mm cystic structure in the endometrium, for which follow-up is suggested. There is a simple cyst in the right ovary measured 2.1 x 2.0 x 1.7 cm. The ovaries are otherwise unremarkable. Dictated by: Dictated on workstation # [id number]
== END ==
LOC: RAD 10:50
PROVIDERS: ATTEND Family Medicine
DX: N83.201 Unspecified ovarian cyst, right side (principal); N93.9 Abnormal uterine and vaginal bleeding, unspecified
CPT/HCPCS: 76830; 76856

== ENCOUNTER → 2020-04-23 | Outpatient (CLI) | payer MEDICAID | LOC: LABNPT 08:15 | DX: Z20.822 Contact with and (suspected) exposure to COVID-19 (principal) | CPT/HCPCS: 87635 ==

== ENCOUNTER 2021-10-15 14:06 | Emergency (ER) | payer MEDICAID ==
[~2021-10-15] VITALS: Ht 152.4 cm; Wt 47.6 kg
[2021-10-15 14:44] LABS: BILIRUBIN,URINE NEGATIVE (NEGATIVE); CLARITY,URINE CLEAR; COLOR,URINE YELLOW; GLUCOSE, URINE (UA) NEGATIVE (NEGATIVE); KETONES,URINE NEGATIVE (NEGATIVE); LEUKOCYTE ESTERASE ,URINE NEGATIVE (NEGATIVE); NITRITE,URINE NEGATIVE (NEGATIVE); PH,URINE 7.5 (5-9); PROTEIN,URINE NEGATIVE (NEGATIVE)
[2021-10-15 14:51] LABS: BACTERIA,URINE FEW /HPF; RBC,URINE RARE /HPF
[2021-10-15 15:00] LABS: HEMOGLOBIN 13.3 g/dL (11.5-16.0); MEAN CORPUSCULAR VOLUME 90 fL (80-99)
[2021-10-15 15:02] LABS: BASOPHILS % (AUTO) 1 % (0-10); EOSINOPHILS # (AUTO) 0.4 10^3/uL (0.0-0.3); EOSINOPHILS % (AUTO) 6 % (0-10); HEMATOCRIT 38 % (35-52); LYMPHOCYTES # (AUTO) 2.1 10^3/uL (1.0-4.0); LYMPHOCYTES % (AUTO) 36 % (12-44); MEAN CORPUSCULAR HEMOGLOBIN 32 pg (25-34); MEAN CORPUSCULAR HGB CONC 36 g/dL (32-36); MEAN PLATELET VOLUME 11.4 fL (9.0-12.2); MONOCYTES # (AUTO) 0.4 10^3/uL (0.0-1.0); MONOCYTES % (AUTO) 7 % (0-12); NEUTROPHILS % (AUTO) 51 % (42-75); PLATELET COUNT 142 10^3/uL (130-400)
[2021-10-15 15:10] LABS: ALBUMIN 4.1 GM/DL (3.2-4.5); POTASSIUM 3.5 MMOL/L (3.6-5.0)
[2021-10-15 15:12] LABS: CALCIUM 8.9 MG/DL (8.5-10.1)
[2021-10-15 15:13] LABS: TOTAL PROTEIN 6.6 GM/DL (6.4-8.2)
[2021-10-15 15:15] LABS: BILIRUBIN,TOTAL 0.6 MG/DL (0.1-1.0)
[2021-10-15 15:16] LABS: CREATININE SERUM 0.83 MG/DL (0.60-1.30)
[2021-10-15] MEDS ORDERED: HOLD METFORMIN - RECEIVED CONTRAST 20 ML VIAL IV SCH (15:45)
[2021-10-15] MEDS ORDERED: IOHEXOL 350 MG/ML 100 ML (OMNIPAQUE 350) VIAL IV ONE (15:45)
[2021-10-15] MEDS ORDERED: NS 100 ML (IVPB) BAG IV ONE (15:45)
[2021-10-15] MEDS ORDERED: fentaNYL INJ 100 MCG/2 ML AMP IVP ONE (16:15)
--- NOTE | 2021-10-15 17:25 | Diagnostic Imaging Report ---
PROCEDURE: US non-OB pelvis comp/trans. TECHNIQUE: Multiple realtime grayscale images were obtained of the pelvis in various projections, endovaginally. Transabdominal imaging was also performed. INDICATION: Pelvic pain and ovarian cyst. COMPARISON: 07/04/2019. FINDINGS: Uterus is surgically absent. There is blood flow to both ovaries with the right ovary measuring 4.0 x 2.1 x 2.8 cm and containing an approximately 2.2 cm heterogeneous region with peripheral blood flow which may represent hemorrhagic and partially collapsed cyst. The left ovary measures 3.0 x 1.3 x 1.9 cm and is otherwise unremarkable. There is no pelvic free fluid. IMPRESSION: Probable hemorrhagic cyst in the right ovary. If indicated, follow-up study could be performed after passage of several menstrual cycles to document resolution. Dictated by: Dictated on workstation # [id number]
--- NOTE | 2021-10-15 17:59 | ED Abdominal Pain ---
General Chief Complaint: Abdominal/GI Problems Stated Complaint: LOWER ABD PAIN Nursing Triage Note: PT AMB TO RM 7 WITH C/O LOWER ABD PAIN SINCE THIS AM. PT DENIES N,V,D AND FEVER. PT REPORTS HX OF OVIARIAN CYST. PT A&OX4 Source of Information: Patient Exam Limitations: No Limitations History of Present Illness Date Seen by Provider: Oct 15, 2021 Time Seen by Provider: 14:23 Initial Comments This 25-year-old young lady presents to the emergency room with generalized abdominal pain that is more focused in the pelvis and started in the left lower quadrant. She is status post hysterectomy but retains her ovaries. She describes this pain as similar to ovarian cyst previously. She does retain her appendix. Pain started this morning around 0400. She is afebrile. She denies vaginal discharge or pain with intercourse. She has had no dysuria. She is afebrile. She has been taking Tylenol and ibuprofen without significant relief. She gives no history of endometriosis. It does hurt to walk and she prefers to be bent at the waist. Bumps in the road on the way to the ER were painful. Allergies and Home Medications Allergies Coded Allergies: Iodinated Contrast Media (Unverified Allergy, Severe, ANAPHYLAXIS, 06/24/13) erythromycin base (Unverified Allergy, Severe, ANAPHYLAXIS, 06/24/13) morphine (Verified Allergy, Intermediate, NAUSEA, 06/24/13) Patient Home Medication List Home Medication List Reviewed: Yes Docusate Sodium (Docusate Sodium) 100 Mg Capsule, 100 MG PO BID Prescribed by: DMITRY PATHAK on 12/08/18 1045 Ibuprofen (Ibuprofen) 800 Mg Tablet, 800 MG PO Q6H Prescribed by: DMITRY PATHAK on 12/08/18 1045 Oxycodone HCl/Acetaminophen (Percocet 10-325 mg Tablet) 1 Each Tablet, 1 TAB PO Q4H PRN for PAIN-MODERATE Prescribed by: DMITRY PATHAK on 12/08/18 1045 Vhp685/Iron Fumarate/FA/Dss ( 19 Tablet) 1 Each Tablet, 1 EACH PO DAILY, (Reported) Entered as Reported by: DEMIAN LARKIN on 10/04/172017 Review of Systems Review of Systems Constitutional: no symptoms reported EENTM: No Symptoms Reported Respiratory: No Symptoms Reported Cardiovascular: No Symptoms Reported Gastrointestinal: See HPI Genitourinary: See HPI Musculoskeletal: no symptoms reported Skin: no symptoms reported Psychiatric/Neurological: No Symptoms Reported Endocrine: No Symptoms Reported Past Ngiccdn-Uglthm-Mdpjmb Hx Patient Social History Tobacco Use?: Yes Tobacco type used: Cigarettes Smoking Status: Current Everyday Smoker Substance use?: No Alcohol Use?: No Pt feels they are or have been: No Immunizations Up To Date Tetanus Booster (TDap): Unknown PED Vaccines UTD: No Seasonal Allergies Seasonal Allergies: Yes Past Medical History Surgery/Hospitalization HX: HYST Surgeries: Yes (D&C) Section, Eye Surgery, Hysterectomy, Tubal Ligation (I have not wanted once in the POTS have been watering the lawn but you can turn that off and okay yeah and I have not done it yet actually I water the ones in the screen and porch over by the screened in porch those were the only ones are done of the ones and I did the ones inside) Respiratory: Yes Asthma Currently Using CPAP: No Currently Using BIPAP: No Cardiac: No Neurological: No : No Reproductive Disorders: No Female Reproductive Disorders: Denies, 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 History: Hysterectomy, Tubal Ligation Sexually Transmitted Disease: No HIV/AIDS: No Genitourinary: No UTI-Chronic Gastrointestinal: No Chronic Constipation Musculoskeletal: No Endocrine: No HEENT: No Loss of Vision: Right Cancer: No Did You Recieve Any Treatments: No Psychosocial: No Integumentary: No Blood Disorders: No Adverse Reaction/Blood Tranf: No Family Medical History Asthma 19 MOTHER G8 SISTER Diabetes mellitus 19 MOTHER Hypertension 19 FATHER 19 MOTHER Thyroid disease 19 MOTHER No Family History of: AIDS Abdominal aortic aneurysm [place]'s disease Alcoholism Alzheimer's disease Aphasia Arthritis Cancer of mouth Cardiovascular disease Cataracts Colon cancer Completed stroke Congenital disease Congenital heart disease Coronary thrombosis Cystic fibrosis Deafness or hearing loss Dementia Drug abuse Dysphasia Fibrocystic disease of breast Gastroenteritis Glaucoma Headache disorder Hypercholesterolemia Infertility Kidney disease Myocardial infarction Neoplasm Not obtainable due to adoption Osteoporosis Parkinson's disease Prostate cancer Psychosocial problem Respiratory disorder Seizure disorder Severe allergy Tuberculosis Visual disorder Physical Exam Vital Signs Vital Signs - First Documented 10/15/21 14:16 Temp 36.8 Pulse 86 Resp 14 B/P (MAP) 119/81 (94) Pulse Ox 96 O2 Delivery Room Air Capillary Refill : Less Than 3 Seconds Height/Weight/BMI Height: 5'0" Weight: 127lbs. 12.0oz. [id number]; 20.00 BMI Method:Stated General Appearance: WD/WN, no apparent distress HEENT: PERRL/EOMI, normal ENT inspection, pharynx normal Neck: normal inspection Respiratory: lungs clear, normal breath sounds, no respiratory distress, no accessory muscle use Cardiovascular: regular rate, rhythm, no edema, no murmur Gastrointestinal: normal bowel sounds, soft, tenderness (Generalized abdominal tenderness with tenderness to percussion. 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, no motor/sensory deficits, alert, normal mood/affect, oriented x 3 Skin: normal color, warm/dry Progress/Results/Core Measures Results/Orders Lab Results Laboratory Tests Test 10/15/21 14:32 10/15/21 14:55 Range/Units Urine Color YELLOW Urine Clarity CLEAR Urine pH 7.5 5-9 Urine Specific [place] 1.015 L 1.016-1.022 Urine Protein NEGATIVE NEGATIVE Urine Glucose (UA) NEGATIVE NEGATIVE Urine Ketones NEGATIVE NEGATIVE Urine Nitrite NEGATIVE NEGATIVE Urine Bilirubin NEGATIVE NEGATIVE Urine Urobilinogen 1.0 < = 1.0 MG/DL Urine Leukocyte Esterase NEGATIVE NEGATIVE Urine RBC (Auto) TRACE-I H NEGATIVE Urine RBC RARE /HPF Urine WBC NONE /HPF Urine Squamous Epithelial Cells 5-10 /HPF Urine Crystals NONE /LPF Urine Bacteria FEW H /HPF Urine Casts NONE /LPF Urine Mucus NEGATIVE /LPF Urine Culture Indicated NO White Blood Count 6.0 4.3-11.0 10^3/uL Red Blood Count 4.18 3.80-5.11 10^6/uL Hemoglobin 13.3 11.5-16.0 g/dL Hematocrit 38 35-52 % Mean Corpuscular Volume 90 80-99 fL Mean Corpuscular Hemoglobin 32 25-34 pg Mean Corpuscular Hemoglobin Concent 36 32-36 g/dL Red Cell Distribution Width 11.8 10.0-14.5 % Platelet Count 142 130-400 10^3/uL Mean Platelet Volume 11.4 9.0-12.2 fL Immature Granulocyte % (Auto) 0 % Neutrophils (%) (Auto) 51 42-75 % Lymphocytes (%) (Auto) 36 12-44 % Monocytes (%) (Auto) 7 0-12 % Eosinophils (%) (Auto) 6 0-10 % Basophils (%) (Auto) 1 0-10 % Neutrophils # (Auto) 3.0 1.8-7.8 10^3/uL Lymphocytes # (Auto) 2.1 1.0-4.0 10^3/uL Monocytes # (Auto) 0.4 0.0-1.0 10^3/uL Eosinophils # (Auto) 0.4 H 0.0-0.3 10^3/uL Basophils # (Auto) 0.0 0.0-0.1 10^3/uL Immature Granulocyte # (Auto) 0.0 0.0-0.1 10^3/uL Percent Immature Platelet Fraction 8.8 H 0.0-7.6 % Sodium Level 141 135-145 MMOL/L Potassium Level 3.5 L 3.6-5.0 MMOL/L Chloride Level 109 H 98-107 MMOL/L Carbon Dioxide Level 21 21-32 MMOL/L Anion Gap 11 5-14 MMOL/L Blood Urea Nitrogen 9 7-18 MG/DL Creatinine 0.83 0.60-1.30 MG/DL Estimat Glomerular Filtration Rate 100 BUN/Creatinine Ratio 11 Glucose Level 96 70-105 MG/DL Calcium Level 8.9 8.5-10.1 MG/DL Corrected Calcium 8.8 8.5-10.1 MG/DL Total Bilirubin 0.6 0.1-1.0 MG/DL Aspartate Amino Transf (AST/SGOT) 15 5-34 U/L Alanine Aminotransferase (ALT/SGPT) 16 0-55 U/L Alkaline Phosphatase 63 40-136 U/L C-Reactive Protein High Sensitivity 0.02 0.00-0.50 MG/DL Total Protein 6.6 6.4-8.2 GM/DL Albumin 4.1 3.2-4.5 GM/DL Lipase 52 8-78 U/L My Orders Orders - JOSE DAVID HENDRICKS MD Ua Culture If Indicated (10/15/21 14:23) Cbc With Automated Diff (10/15/21 14:41) Comprehensive Metabolic Panel (10/15/21 14:41) Hs C Reactive Protein (10/15/21 14:41) Lipase (10/15/21 14:41) Ed Iv/Invasive Line Start (10/15/21 14:41) Iohexol Injection (Omnipaque 350 Mg/Ml 1 (10/15/21 15:45) Received Contrast (Hold Metformin- Contr (10/15/21 15:45) Ns (Ivpb) (Sodium Chloride 0.9% Ivpb Bag (10/15/21 15:45) Fentanyl Inj (Sublimaze Injection) (10/15/21 16:15) Us Non Ob Pelvis Comp/Transvag (10/15/21 15:50) Ketorolac Injection (Toradol Injection) (10/15/21 18:00) Medications Given in ED Vital Signs/I&O 10/15/21 10/15/21 14:16 18:14 Temp 36.8 Pulse 86 57 Resp 14 18 B/P (MAP) 119/81 (94) 121/75 Pulse Ox 96 98 O2 Delivery Room Air Room Air Blood Pressure Mean: 94 Progress Progress Note : Progress Note Pain was managed with fentanyl and later Toradol. Pelvic ultrasound revealed ovarian cyst. Labs and course of illness were not otherwise consistent with surgical pathology such as appendicitis. We did discuss whether we should proceed with CT scan. Risks and benefits were reviewed. Patient elects treatment of symptoms with careful observation. She will return if symptoms worsen. See discharge instructions for further discussion. Diagnostic Imaging Diagonstic Imaging: Ultrasound Plain Films/CT/US/NM/MRI: pelvis Comments Pelvic ultrasound discussed with pediatric rn and report reviewed. See report below: NAME: PATRICIO HOPKINS [facility] REC#: [id number] PT STATUS: REG ER : 1995 PHYSICIAN: JOSE DAVID HENDRICKS MD ADMIT DATE: 10/15/21/ER Draft Date of Exam:10/15/21 US NON OB PELVIS COMP/TRANSVAG PROCEDURE: US non-OB pelvis comp/trans. TECHNIQUE: Multiple realtime grayscale images were obtained of the pelvis in various projections, endovaginally. Transabdominal imaging was also performed. INDICATION: Pelvic pain and ovarian cyst. COMPARISON: 07/04/2019. FINDINGS: Uterus is surgically absent. There is blood flow to both ovaries with the right ovary measuring 4.0 x 2.1 x 2.8 cm and containing an approximately 2.2 cm heterogeneous region with peripheral blood flow which may represent hemorrhagic and partially collapsed cyst. The left ovary measures 3.0 x 1.3 x 1.9 cm and is otherwise unremarkable. There is no pelvic free fluid. IMPRESSION: Probable hemorrhagic cyst in the right ovary. If indicated, follow-up study could be performed after passage of several menstrual cycles to document resolution. Dictated on workstation # [id number] Dict: 10/15/21 1713 Trans: 10/15/21 1724 [facility] [id number] Interpreted by: KURTIS ELIZALDE MD Departure Impression Primary Impression: Pelvic pain Additional Impression: Hemorrhagic ovarian cyst Disposition: HOME, SELF-CARE Condition: Improved Departure-Patient Inst. Decision time for Depature: 17:57 Referrals: RAQUEL RAPHAEL MD (PCP/Family) Primary Care Physician Patient Instructions: Constipation, Adult (DC), Severe Abdominal Pain Add. Discharge Instructions: There is evidence of a hemorrhagic ovarian cyst on your right. This is most likely the source of your pain. Blood and fluid oozing from the cyst can cause significant pain throughout your abdomen. Consume primarily a clear liquid diet for the rest of the evening. Drink plenty of clear liquids to stay well-hydrated. For pain you may take ibuprofen up to 600 mg every 6 hours as needed and Tylenol (acetaminophen) up to 1000 mg every 6 hours as needed. Your pain should gradually and progressively improve over the next couple of days. If pain is worsening despite following these instructions or if you are developing additional symptoms such as vomiting, fever, etc., please return to the emergency room. This could be a sign of an additional and possibly more threatening pathology such as appendicitis, and the symptoms should be evaluated promptly. Call with questions or concerns. All discharge instructions reviewed with patient and/or family. Voiced understanding. Copy Copies To 1: RAQUEL RAPHAEL MD, JOSHUA T MD Oct 15, 2021 17:59
[2021-10-15] MEDS ORDERED: KETOROLAC 30 MG/ML VIAL IVP ONE (18:00)
[2021-10-15 18:14] VITALS: BP 121/75
== END 2021-10-15 18:14 | disposition home or self-care (01) ==
LOC: EDUNIT# 14:06 → ER 14:08
DX: N83.202 Unspecified ovarian cyst, left side (principal); F17.210 Nicotine dependence, cigarettes, uncomplicated; Z90.710 Acquired absence of both cervix and uterus; Z28.310 Unvaccinated for COVID-19
CPT/HCPCS: 36415; 76830; 76856; 80053; 81000; 83690; 85025; 86141

== ENCOUNTER → 2021-10-19 | Outpatient (CLI) | payer MEDICAID ==
--- NOTE | 2021-10-19 16:23 | Diagnostic Imaging Report ---
PROCEDURE: CT abdomen and pelvis without contrast. TECHNIQUE: Multiple contiguous axial images were obtained through the abdomen and pelvis without the use of intravenous contrast. Auto Exposure Controls were utilized during the CT exam to meet ALARA standards for radiation dose reduction. INDICATION: Ovarian hemorrhagic cyst. FINDINGS: The lung bases are clear. Liver and gallbladder are unremarkable. The pancreas and spleen are unremarkable. No adrenal mass is detected. Kidneys are unremarkable. Aorta is nonaneurysmal. Bowel loops are normal in caliber. There is a small amount of free fluid in the pelvis which is likely physiologic. The bladder is unremarkable. Ovaries are not well visualized by CT. No inflammatory changes are seen. IMPRESSION: Essentially unremarkable noncontrast CT of the abdomen and pelvis. No acute abnormality is detected. Dictated by: Dictated on workstation # [id number]
== END ==
LOC: RAD 14:43
PROVIDERS: ATTEND Family Medicine
DX: N83.209 Unspecified ovarian cyst, unspecified side (principal)
CPT/HCPCS: 74176

== ENCOUNTER → 2022-03-16 | Outpatient (CLI) | payer MEDICAID ==
--- NOTE | 2022-03-16 16:24 | Diagnostic Imaging Report ---
PROCEDURE: Pelvic comp/transvaginal sonogram. TECHNIQUE: Complete transabdominal and transvaginal pelvic ultrasound was performed. In addition, limited pelvic Doppler was performed. INDICATION: Left-sided pelvic pain. COMPARISON: Correlation is made with prior ultrasound from 10/15/2021. The uterus is surgically absent. Right ovary measures 2.7 x 2.5 x 3.1 cm and the left ovary measures 2.1 x 1.2 x 1.5 cm. Previously noted complex cyst in right ovary appears to be similar in size at 2.1 x 1.8 x 1.9 cm. The left ovary contains small follicles. There is blood flow to both ovaries. No free fluid is detected. IMPRESSION: Stable right ovarian hemorrhagic cyst when compared to examination from 10/15/2021. Dictated by: Dictated on workstation # [id number]
== END ==
LOC: RAD 12:33
PROVIDERS: ATTEND Family Medicine
DX: N83.201 Unspecified ovarian cyst, right side (principal)
CPT/HCPCS: 76830; 76856

== ENCOUNTER 2022-05-13 06:40 | Emergency (ER) | payer MEDICAID ==
[~2022-05-13] VITALS: Ht 152.4 cm; Wt 45.4 kg
--- NOTE | 2022-05-13 06:46 | ED General ---
General Stated Complaint: SORE THROAT/EARACHE Source of Information: Patient Exam Limitations: No Limitations History of Present Illness Date Seen by Provider: May 13, 2022 Time Seen by Provider: 06:46 Initial Comments Patient is a 26-year-old female who presents to the emergency room for 24 to 48 hours of sore throat, cough occasionally productive of sputum. No reported fever. No runny nose,. The pain in her neck and throat radiates up into her right ear. She points to the right side of her neck as the source of her pain. She states her mom tested positive for strep a couple of days ago but denies any recent contact with her. She has 3 kids at home all of whom are well currently. She is not COVID vaccinated. She tried to take 1 ibuprofen at 230 this morning without any relief of symptoms. Normal no burning with urination, nausea or vomiting. No diarrhea. Timing/Duration: 1-2 Days Severity: Moderate Associated Systoms: Cough, Malaise Allergies and Home Medications Allergies Coded Allergies: Iodinated Contrast Media (Unverified Allergy, Severe, ANAPHYLAXIS, 06/24/13) erythromycin base (Unverified Allergy, Severe, ANAPHYLAXIS, 06/24/13) morphine (Verified Allergy, Intermediate, NAUSEA, 06/24/13) Patient Home Medication List Home Medication List Reviewed: Yes Docusate Sodium (Docusate Sodium) 100 Mg Capsule, 100 MG PO BID Prescribed by: DMITRY PATHAK on 12/08/18 1045 Ibuprofen (Ibuprofen) 800 Mg Tablet, 800 MG PO Q6H Prescribed by: DMITRY PATHAK on 12/08/18 1045 Oxycodone HCl/Acetaminophen (Percocet 10-325 mg Tablet) 1 Each Tablet, 1 TAB PO Q4H PRN for PAIN-MODERATE Prescribed by: DMITRY PATHAK on 12/08/18 1045 Wii648/Iron Fumarate/FA/Dss ( 19 Tablet) 1 Each Tablet, 1 EACH PO DAILY, (Reported) Entered as Reported by: DEMIAN LARKIN on 10/04/172017 Review of Systems Review of Systems Constitutional: see HPI EENTM: ear pain, throat pain Respiratory: cough Cardiovascular: no symptoms reported Gastrointestinal: no symptoms reported Genitourinary: no symptoms reported Musculoskeletal: no symptoms reported Skin: no symptoms reported All Other Systems Reviewed Negative Unless Noted: Yes Past Edkzrsr-Xawase-Nyoado Hx Immunizations Up To Date Tetanus Booster (TDap): Unknown PED Vaccines UTD: No Seasonal Allergies Seasonal Allergies: Yes Past Medical History Surgery/Hospitalization HX: HYST Surgeries: Yes (D&C) Section, Eye Surgery, Hysterectomy, Tubal Ligation Respiratory: Yes Asthma Currently Using CPAP: No Currently Using BIPAP: No Cardiac: No Neurological: No Reproductive Disorders: No Female Reproductive Disorders: Denies, Ovarian Cyst [employer]PER History: Hysterectomy, Tubal Ligation Sexually Transmitted Disease: No HIV/AIDS: No Genitourinary: No UTI-Chronic Gastrointestinal: No Chronic Constipation Musculoskeletal: No Endocrine: No HEENT: No Loss of Vision: Right Cancer: No Did You Recieve Any Treatments: No Psychosocial: No Integumentary: No Blood Disorders: No Adverse Reaction/Blood Tranf: No Family Medical History Asthma 19 MOTHER G8 SISTER Diabetes mellitus 19 MOTHER Hypertension 19 FATHER 19 MOTHER Thyroid disease 19 MOTHER No Family History of: AIDS Abdominal aortic aneurysm Basilio's disease Alcoholism Alzheimer's disease Aphasia Arthritis Cancer of mouth Cardiovascular disease Cataracts Colon cancer Completed stroke Congenital disease Congenital heart disease Coronary thrombosis Cystic fibrosis Deafness or hearing loss Dementia Drug abuse Dysphasia Fibrocystic disease of breast Gastroenteritis Glaucoma Headache disorder Hypercholesterolemia Infertility Kidney disease Myocardial infarction Neoplasm Not obtainable due to adoption Osteoporosis Parkinson's disease Prostate cancer Psychosocial problem Respiratory disorder Seizure disorder Severe allergy Tuberculosis Visual disorder Physical Exam Vital Signs Vital Signs - First Documented 05/13/22 06:45 Temp 37.2 Pulse 84 Resp 14 B/P (MAP) 108/68 (81) Pulse Ox 100 O2 Delivery Room Air Capillary Refill : Height, Weight, BMI Height: 5'0" Weight: 127lbs. 12.0oz. [id number]; 20.00 BMI Method:Stated General Appearance: No Apparent Distress, WD/WN, Thin Eyes: Bilateral Eye Normal Inspection, Bilateral Eye PERRL, Bilateral Eye EOMI HEENT: PERRL/EOMI, TMs Normal, Tonsillar Exudate, Tonsillar Enlargement Neck: Normal Inspection, Other (Tenderness noted along the right sternocleidomastoid muscle. No significant lymphadenopathy) Respiratory: No Accessory Muscle Use, No Respiratory Distress, Wheezing (Scattered) Cardiovascular: Regular Rate, Rhythm, Normal Peripheral Pulses Gastrointestinal: Non Tender, Soft Extremity: Normal Capillary Refill Neurologic/Psychiatric: Alert, Oriented x3, No Motor/Sensory Deficits, Normal Mood/Affect, tube and rod straightener II-XII Norm as Tested Skin: Normal Color, Warm/Dry Progress/Results/Core Measures Suspected Sepsis SIRS Temperature: Pulse: Respiratory Rate: Blood Pressure / Mean: Results/Orders Lab Results Laboratory Tests Test 05/13/22 07:20 05/13/22 07:23 Range/Units SARS-CoV-2 RNA (RT-PCR) Not Detected Not Detecte Group A Streptococcus Screen POSITIVE H NEGATIVE My Orders Orders - AMY FISHER MD Covid 19 Inhouse Test (05/13/22 07:10) Rapid Strep A Screen (05/13/22 07:10) Isolation Central Supply Req (05/13/22 07:10) Ketorolac Injection (Toradol Injection) (05/13/22 07:15) Antacid Suspension (Mylanta Suspension (05/13/22 07:15) Lidocaine 2% Viscous 15 Ml (Xylocaine Vi (05/13/22 07:15) Penicillin G Benzathine Inject (Bicillin (05/13/22 08:00) Medications Given in ED Current Medications Medications Dose Ordered Sig/Giovanni Route Start Time Stop Time Status Last Admin Dose Admin Al Hydrox/Mg Hydrox/Simethicone 30 ml ONCE ONCE PO 05/13/22 07:15 05/13/22 07:16 DC 05/13/22 07:31 30 ML Ketorolac Tromethamine 30 mg ONCE ONCE IM 05/13/22 07:15 05/13/22 07:16 DC 05/13/22 07:35 30 MG Lidocaine HCl 5 ml ONCE ONCE PO 05/13/22 07:15 05/13/22 07:16 DC 05/13/22 07:31 5 ML Vital Signs/I&O 05/13/22 06:45 Temp 37.2 Pulse 84 Resp 14 B/P (MAP) 108/68 (81) Pulse Ox 100 O2 Delivery Room Air Capillary Refill : Counseling-Symptomatic: 3-10 Minutes Follow-up with PCP to: Discuss Further Options Departure Impression Primary Impression: Strep pharyngitis Disposition: 01 HOME, SELF-CARE Condition: Stable Departure-Patient Inst. Decision time for Depature: 07:55 Referrals: RAQUEL RAPHAEL MD (PCP/Family) Primary Care Physician Patient Instructions: Sore Throat, Adult ED Add. Discharge Instructions: Drink fluids to stay well-hydrated. Take [id number]-svc-lzgfeht ibuprofen, 3 tablets which is 600 mg every 6 hours for pain. Always take ibuprofen with food. Warm salt water gargles multiple times daily will help with throat inflammation and pain. You can also take extra strength Tylenol 2 tablets every 6 hours for pain. Alternate every 3 hours with the ibuprofen so that your ibuprofen doses and Tylenol doses are each 6 hours apart. Warm compresses to your right ear will also help with your pain. You do not need additional antibiotics after your shot of antibiotics today. If you develop fever, facial swelling, worsening pain please return to the emergency room for reevaluation. Copy Copies To 1: RAQUEL RAPHAEL MD, KATHRYN M MD May 13, 2022 06:46
[2022-05-13] MEDS ORDERED: KETOROLAC 30 MG/ML VIAL IM ONE (07:15)
[2022-05-13] MEDS ORDERED: LIDOCAINE 2% VISCOUS 15 ML UDC PO ONE (07:15)
[2022-05-13] MEDS ORDERED: ANTACID SUSP 30 ML UDC (MYLANTA) PO ONE (07:15)
[2022-05-13] MEDS ORDERED: PEN G BENZ (BICILLIN LA) 1.2 M UN/2 ML SYR IM ONE (08:00)
[2022-05-13 08:17] VITALS: BP 98/60
== END 2022-05-13 08:17 | disposition home or self-care (01) ==
LOC: EDUNIT# 06:40 → ER 06:43
DX: J02.0 Streptococcal pharyngitis (principal); Z28.310 Unvaccinated for COVID-19; Z20.822 Contact with and (suspected) exposure to COVID-19
CPT/HCPCS: 87430; 87636; 99283

== ENCOUNTER → 2022-12-22 | Outpatient (CLI) | payer MEDICAID ==
--- NOTE | 2022-12-22 10:31 | Diagnostic Imaging Report ---
PROCEDURE: US Gallbladder. TECHNIQUE: Multiple real-time grayscale images were obtained over the right upper quadrant in various projections. INDICATION: Nausea and vomiting for 3 to 4 months. Liver is normal in size at 13 cm. The portal vein is patent and shows normal direction of flow. Gallbladder is without stones or sludge. No wall thickening or biliary duct dilatation is identified. Pancreas is unremarkable. Aorta is nonaneurysmal. IVC is patent. Right kidney is without calculi or hydronephrosis. There is no ascites. IMPRESSION: Unremarkable gallbladder ultrasound. There is no evidence of cholelithiasis or acute cholecystitis. Dictated by: Dictated on workstation # [id number]
== END ==
LOC: RAD 09:00
PROVIDERS: ATTEND Surgery
DX: R11.2 Nausea with vomiting, unspecified (principal)
CPT/HCPCS: 76705

== ENCOUNTER → 2023-01-02 | Outpatient (CLI) | payer MEDICAID ==
[~2023-01-02] MED LIST changes: +CATHETER FLUSH 10 ML SYR IVP PRN
--- NOTE | 2023-01-02 12:44 | Diagnostic Imaging Report ---
INDICATION: Nausea and vomiting. TECHNIQUE: The patient received 5.4 mCi of technetium 99m Mebrofenin and sequential imaging over the abdomen was performed. After confirmation of activity within the bile ducts, gallbladder, and proximal bowel, stimulation was performed with ingestion of 8 ounces of Ensure Plus and the gallbladder ejection fraction was quantified. FINDINGS: There is homogenous distribution of the radiopharmacy throughout the liver parenchyma. The gallbladder stimulation results in an ejection fraction of 35%. IMPRESSION: No findings of cystic or common duct obstruction with a 35% gallbladder ejection fraction. Dictated by: Dictated on workstation # [id number]
== END ==
LOC: CARD 08:15
PROVIDERS: ATTEND Nurse Practitioner
DX: R11.2 Nausea with vomiting, unspecified (principal)
CPT/HCPCS: 78227

== ENCOUNTER → 2023-01-08 | Outpatient (CLI) | payer MEDICAID ==
[~2023-01-08] VITALS: Ht 152.4 cm; Wt 45.4 kg
[~2023-01-08] MED LIST changes: -CATHETER FLUSH 10 ML SYR IVP PRN; +DOCU-143 PO
== END | disposition home or self-care (01) ==
LOC: PREOP 12:41
PROVIDERS: ATTEND Surgery
DX: Z01.818 Encounter for other preprocedural examination (principal)

== ENCOUNTER 2023-01-10 08:32 | Day surgery (SDC) | payer MEDICAID ==
[2023-01-10] VITALS (10 sets, daily range): BP systolic 105–167; BP diastolic 68–104
[~2023-01-10] VITALS: Ht 152.4 cm; Wt 45.4 kg
[~2023-01-10 08:32] MED LIST changes: -DOCU-143 PO
[2023-01-10] MEDS ORDERED: ceFAZolin INJECTION 1,000 MG in NS (IVPB) 50 ML 50 ML IV ONE (08:45)
[2023-01-10] MEDS ORDERED: LACTATED RINGERS 1,000 ML 1,000 ML IV PRN (08:45)
[2023-01-10] MEDS ORDERED: LIDOCAINE 2% w/EPI 1:100,000 20 ML VIAL ONE (09:07)
[2023-01-10] MEDS ORDERED: MIDAZOLAM INJ 2 MG/2 ML VIAL ONE (09:39)
[2023-01-10] MEDS ORDERED: ONDANSETRON INJECTION 4 MG/2 ML (SDV) ONE (09:39)
[2023-01-10] MEDS ORDERED: proPOfol INJECTION 200 MG/20 ML VIAL IV ONE (09:39)
[2023-01-10] MEDS ORDERED: fentaNYL INJECTION 100 MCG/2 ML VIAL ONE ×3 (09:39→12:34)
[2023-01-10] MEDS ORDERED: LIDOCAINE PF 2% 5 ML VIAL ONE (09:39)
[2023-01-10] MEDS ORDERED: GLYCOPYRROLATE INJ 0.2 MG/ML 2 ML VIAL ONE (09:39)
[2023-01-10] MEDS ORDERED: dexAMETHasone INJ 10 MG/ML 1 ML VIAL ONE (09:39)
--- NOTE | 2023-01-10 10:31 | Progress Note-Pre Operative ---
Pre-Operative Progress Note Date H&P Reviewed: Jan 10, 2023 Time H&P Reviewed: 10:31 History & Physical: H&P Reviewed, Patient Examed, No changes noted Pre-Operative Diagnosis: biliiary dyskinesia TERRA CORNEJO DO Jan 10, 2023 10:31
[2023-01-10] MEDS ORDERED: NEOSTIGMINE 1 MG/1ML 10 ML VIAL ONE (11:47)
[2023-01-10] MEDS ORDERED: ROCURONIUM 50 MG/5 ML VIAL IV ONE (11:48)
--- NOTE | 2023-01-10 12:11 | Progress Note-Post Operative ---
Post-Operative Progess Note Surgeon (s)/Associate Professor (s) Surgeon TERRA CORNEJO DO Associate Professor: na Pre-Operative Diagnosis biliiary dyskinesia Post-Operative Diagnosis same Procedure & Operative Findings Date of Procedure 01/10/23 Procedure Performed/Findings PROCEDURE: Laparoscopic cholecystectomy with attempted intraoperative cholangiogram. COMPLICATIONS: None. PROCEDURE: The patient was taken to the operating suite and was prepped and draped in sterile fashion. A surgical pause was performed. Just superior to the umbilicus, a 12 mm incision was made. Dissection was taken down to the fascia, which was then scored and grasped with a Jeff and the abdomen was then entered. A 0 Vicryl suture was placed in a agpfri-qn-vwyuu fashion and a [place] trocar was placed and secured. Pneumoperitoneum was achieved. A 5mm trochar place in the subxyphoid and 2 in the right upper quadrant. The gallbladder was then grasped and elevated. The cystic duct, and cystic artery were then dissected out. Clip was placed on the distal portion of the cystic duct which was then partially transected. An arrow catheter was attempted to be inserted into the duct. The Duct was to small and catheter not able to be inserted. The cholangiogram was then not performed. Clips were placed on proximal portion of the cystic duct and then the duct was then transected. Clips were placed along the proximal and distal portion of the cystic artery which was then transected. Hook cautery was used to dissect the gallbladder from the gallbladder fossa achieving hemostasis. The gallbladder was placed in an Endobag and removed through the 12 mm trocar site. The abdomen was then reinspected. Copious amounts of irrigation were used to irrigate the abdomen and there were no signs of active bleeding. Hemostasis had been achieved. The 12 mm fascial defect was then closed with 0 Vicryl suture that had been placed in a bllsap-zj-xkjan fashion. The abdomen was then desufflated, the trocars were removed. The abdomen was then washed and dried. The skin was then closed using 4-0 Monocryl in a subcuticular fashion. The abdomen was washed and dried and Skin Affix was place over incisions. Patient tolerated the procedure well without any complications and was taken to the recovery room in stable condition. Anesthesia Type general Estimated Blood Loss Estimated blood loss (mL): minimal Specimens/Packing Specimens Removed gallbladder TERRA CORNEJO DO Jan 10, 2023 12:11
--- NOTE | 2023-01-10 12:14 | Anesthesia-General Post-Op ---
General Patient Condition Mental Status/LOC: Same as Preop Cardiovascular: Satisfactory Nausea/Vomiting: Absent Respiratory: Satisfactory Pain: Controlled Complications: Absent Post Op Complications Complications None Follow Up Care/Instructions Patient Instructions None needed. Anesthesia/Patient Condition Patient Condition Patient is doing well, no complaints, stable vital signs, no apparent adverse anesthesia problems. No complications reported per nursing. MARIA D HOWARD CRNA Jan 10, 2023 12:14
[2023-01-10] MEDS ORDERED: fentaNYL INJECTION 100 MCG/2 ML VIAL IVP ONE (12:15)
[2023-01-10] MEDS ORDERED: ONDANSETRON INJECTION 4 MG/2 ML (SDV) IVP PRN (12:15)
[2023-01-10] MEDS ORDERED: MEPERIDINE INJ 50 MG/ML VIAL IVP ONE (12:15)
[2023-01-10] MEDS ORDERED: HYDROcodone/ACETAMINOPHEN 5 MG/325 MG TABLET ONE (13:42)
[2023-01-10] MEDS ORDERED: DOCU-143 PO (13:44)
[2023-01-10] MEDS ORDERED: ACHD5005 PO (13:44)
[2023-01-10] MEDS ORDERED: HYDROcodone/ACETAMINOPHEN 5 MG/325 MG TABLET PO ONE (13:45)
--- NOTE | 2023-01-10 13:45 | Discharge Inst-Simple/Standard ---
Discharge Inst-Standard Discharge Medications New, Converted or Re-Newed RX: Transmitted to Pharmacy Patient Instructions/Follow Up Plan of Care/Instructions/FU: 2 weeks Carol Activity as Tolerated: No Discharge Diet: Regular Diet Other Inst to Patient Follow up Appt: Make appointment for 2 weeks. Instructions: No lifting greater than 10 pounds. No strenuous activity. May shower in 24 hours, no tub bath or soaking. Use incentive spirometer at home as directed. No Smoking Skin/Wound Care: You have special glue over incision, it will fall off on it's own. Symptoms to Report: Appetite Changes, Extremity Discoloration, Numbness/Tingling, Swelling Increased, Bleeding Excessive, Eyesight Changes, Pain Increased, Urine Color Change, Constipation(Persistent), Fever over 101 degree F, Pain/Pressure in chest, Urinating Difficulty, Cough Up/Vomit Blood, Heart Beat Irreg/Pounding, Pain/Pressure in jaw, Vaginal Bleeding Increase, Cramps in feet or legs, Lightheadedness, Pain/Pressure in shoulder, Diarrhea(Persistent), Memory Changes Suddenly, Questions/Concerns, Weight gain consecutive days, Dizziness/Fainting, Nausea/Vomiting, Shortness of Breath, Weight gain over 2 pounds. If eyes or skin turn yellow notify physician. If questions or concerns contact your physician Or seek help at emergency department. TERRA CORNEJO DO Jan 10, 2023 13:45
== END 2023-01-10 14:48 | disposition home or self-care (01) ==
LOC: SDC 08:32
PROVIDERS: ATTEND Surgery
DX: K81.1 Chronic cholecystitis (principal); K82.8 Other specified diseases of gallbladder; F17.210 Nicotine dependence, cigarettes, uncomplicated
CPT/HCPCS: 87081